=== PATIENT | female | born 1965 | race Caucasian/White ===

== ENCOUNTER → 2016-06-30 | Outpatient (CLI) | payer OTHER ==
[~2016-06-30] MED LIST: /DULO30CA OR; AMBI12.52 PO; BUTR5DIS2 TD; CALCCHW12 OR; CALCTAB22 OR; CALCTAB28 PO; CARA1TAB2 PO; CATA0.1T PO; CLON-412 PO; CLON0.5T PO; CLONI1TA PO; DULO30CA PO; EMLA CREAM TOP; FERR5MLUD PO; HYDR1TAB97 PO; HYOSPOW PO; KLON0.5T PO; LORA1TAB OR; LYRI75CA PO; MIRA255PW PO; MULTCAP PO; MULTIVIT OR; NASONEX; NEUR300C PO; NORC10TA2 PO; OMEP20TA7 OR; OMEP40CA2 PO; ONDA4TAB6 PO; OXYC10TA56 OR; OXYC1TAB23 PO; RANI15TA PO; SODIUM CHLORIDE; SUCR1SUS PO; SUCR1TA PO; TAMO20TA OR; TIZA2CAP3 PO; TIZA4CAP3 PO; TIZA4TAB3 PO; TPS CREAM TOP; TRAM50TA2 OR; VENL37.5 OR; VICO5TAB OR; VICO5TAB PO; VIIB10TA PO; VIT D 2000 OR; VITA10002 PO; VITA100037 PO; VOLT1GEL EX; VOLT1GEL TOP; VOLT1GEL24 TD; VYBRID PO; Vitamin D OR; WELL200T PO; WELL75TA PO; ZANA2CAP PO; [UNRECOGNIZED DRUG - OTHER] OR; [UNRECOGNIZED DRUG - OTHER] PO; oxycodone OR
[2016-06-30 12:24] LABS: BASO % 0.1 % (0.0-1.0); EOS % 0.5 % (0.0-3.0); LARGE UNSTAINED CELL # 0.1 K/mm3 (0.0-0.4); LARGE UNSTAINED CELL % 1.9 % (0.0-4.0); LYMPH # 1.6 K/mm3 (1.5-4.5); LYMPH % 23.4 % (24.0-44.0); MEAN CORPUSCULAR HEMOGLOBIN 27.8 pg (27.0-33.0); MEAN CORPUSCULAR HGB CONC 31.9 g/dl (32.0-36.5); MEAN CORPUSCULAR VOLUME 87.1 fl (80.0-96.0); MONO # 0.2 K/mm3 (0.0-0.8); MONO % 3.4 % (0.0-5.0); NEUTROPHILS # 4.7 K/mm3 (1.8-7.7); NEUTROPHILS % 70.7 % (36.0-66.0); PLATELET COUNT, AUTOMATED 442 k/mm3 (150-450); RED CELL DISTRIBUTION WIDTH 14.7 % (11.5-14.5); WHITE BLOOD COUNT 6.6 K/mm3 (4.0-10.0)
[2016-06-30 12:34] LABS: ALBUMIN 3.8 GM/DL (3.2-5.2); ALKALINE PHOSPHATASE 133 U/L (45-117); ALT/SGPT 26 U/L (12-78); ANION GAP 10 MEQ/L (8-16); AST/SGOT 19 U/L (15-37); BILIRUBIN,TOTAL 0.3 MG/DL (0.2-1.0); BLOOD UREA NITROGEN 14 MG/DL (7-18); CARBON DIOXIDE LEVEL 26 MEQ/L (21-32); CHLORIDE LEVEL 100 MEQ/L (98-107); CHOLESTEROL LEVEL 326 MG/DL (<200); CREATININE FOR GFR 0.91 MG/DL (0.55-1.02); GLOMERULAR FILTRATION RATE > 60.0 (>51); GLUCOSE, FASTING 121 MG/DL (70-105); POTASSIUM SERUM 4.4 MEQ/L (3.5-5.1); SODIUM LEVEL 136 MEQ/L (136-145); TOTAL PROTEIN 7.6 GM/DL (6.4-8.2); TRIGLYCERIDES LEVEL 214 MG/DL (<150)
[2016-07-01 14:31] LABS: Lyme Disease IgG/IgM Antibodie <0.91 ISR (0.00-0.90); Lyme Disease IgM Ab Quantitati <0.80 index (0.00-0.79)
== END ==
LOC: M WUC 10:16
PROVIDERS: ATTEND Nurse Practitioner Family
DX: D50.9 Iron deficiency anemia, unspecified (principal); W57.XXXA Bitten or stung by nonvenomous insect and other nonvenomous arthropods, initial encounter; Y92.9 Unspecified place or not applicable; Y93.9 Activity, unspecified; K28.9 Gastrojejunal ulcer, unspecified as acute or chronic, without hemorrhage or perforation; Z13.220 Encounter for screening for lipoid disorders; Y99.9 Unspecified external cause status

== ENCOUNTER → 2016-07-21 | Outpatient (CLI) | payer OTHER ==
[~2016-07-21] MED LIST changes: +HYDR-3713 PO; -HYDR1TAB97 PO
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
== END ==
LOC: M PAIN 10:00
PROVIDERS: ATTEND Nurse Practitioner Family
DX: Z09 Encounter for follow-up examination after completed treatment for conditions other than malignant neoplasm (principal); G89.29 Other chronic pain; M51.16 Intervertebral disc disorders with radiculopathy, lumbar region; G43.909 Migraine, unspecified, not intractable, without status migrainosus; K76.0 Fatty (change of) liver, not elsewhere classified; F32.9 Major depressive disorder, single episode, unspecified; F41.9 Anxiety disorder, unspecified; M85.80 Other specified disorders of bone density and structure, unspecified site; Z88.3 Allergy status to other anti-infective agents; Z91.030 Bee allergy status; L23.4 Allergic contact dermatitis due to dyes; Z79.891 Long term (current) use of opiate analgesic; Z79.899 Other long term (current) drug therapy; Z85.3 Personal history of malignant neoplasm of breast; Z86.19 Personal history of other infectious and parasitic diseases

== ENCOUNTER → 2016-08-07 | Outpatient (CLI) | payer OTHER ==
--- NOTE | 2016-08-07 12:02 | REP ---
Clinical: Pain with right-sided sciatica. Technique: AP, lateral, bilateral oblique, and coned-down views. Findings: Alignment and lordosis is maintained. The vertebral bodies including transverse process and spinous processes are intact and normal. There is no evidence for acute fracture / compression injury or subluxation. No evidence for spondylolysis or spondylolisthesis. Anterior spurring at the L3-4 and L4-5 levels suggest mild degenerative change. Impression: Minimal anterior spurring. Otherwise normal, age-appropriate examination. Signed by Souleymane Fu MD 08/07/2016 11:54 A
--- NOTE | 2016-08-07 13:08 | REP ---
Clinical: Sciatica. Technique: AP angled and lateral views of the sacrum and coccyx. Findings: Bilateral sacroiliac joints along with sacrum/coccyx and visualized pelvis appears normal for age. Erosive type change along the right superior pubic ramus likely chronic. Impression: Normal, age-appropriate sacrum/coccyx series Signed by Souleymane Fu MD 08/07/2016 12:59 P
== END ==
LOC: M RAD 11:12
PROVIDERS: ATTEND Nurse Practitioner Family
DX: M54.41 Lumbago with sciatica, right side (principal)

== ENCOUNTER → 2016-08-12 | Outpatient (CLI) | payer OTHER ==
--- NOTE | 2016-08-12 08:38 | REP ---
CT Head without contrast HISTORY: Fall COMPARISON: None There is no intraparenchymal hemorrhage, acute infarct, mass or midline shift. The ventricular system is normal in appearance. There is no extra cerebral collection. There is no fracture. The visualized sinuses are clear. IMPRESSION: There is no intracranial lesion. Signed by Tad Rogers MD 08/12/2016 08:29 A
== END ==
LOC: M RAD 06:58
PROVIDERS: ATTEND Nurse Practitioner Family
DX: R51 Headache (principal)

== ENCOUNTER → 2016-09-16 | Outpatient (CLI) | payer OTHER ==
[~2016-09-16] MED LIST changes: +ISOVUE-M 300 61% 15ML VIAL (Q9967) As Ordered ONE; +LIDOCAINE 1% SDV INJ 30 ML VIAL As Ordered ONE; +MIDAZOLAM INJ 2 MG/2 ML VIAL (J2250) As Ordered ONE; +diazePAM 5 MG TAB As Ordered ONE; +fentaNYL 100 MCG/2 ML INJECTION (J3010) As Ordered ONE; +methylPREDNISolone SUSP 40 MG/ML (DEPO-medrol) VIAL (J1030) As Ordered ONE; +oxyCODONE 5MG TAB As Ordered ONE
--- NOTE | 2016-09-16 14:08 | REP ---
FLUOROSCOPIC GUIDANCE FOR LUMBAR EPIDURAL INJECTION: 09/16/2016 CLINICAL HISTORY: Low back pain. FINDINGS: Two images from C-arm fluoroscopy provided to Dr. Jeffries of the pain clinic for lumbar epidural steroid injection are reviewed. Initial image shows a needle to the right of midline at the L4-5 level with epidural contrast adjacent. Second image shows the needle removed. Fluoroscopy time: 13 seconds. Signed by Isaías Marquez MD 09/16/2016 05:10 P
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
== END | disposition home or self-care (01) ==
LOC: M PAIN 09:00
PROVIDERS: ATTEND Anesthesiology
DX: G89.29 Other chronic pain (principal); M51.16 Intervertebral disc disorders with radiculopathy, lumbar region; I10 Essential (primary) hypertension; E78.5 Hyperlipidemia, unspecified; E88.81 Metabolic syndrome and other insulin resistance; F41.9 Anxiety disorder, unspecified; F33.9 Major depressive disorder, recurrent, unspecified; M85.80 Other specified disorders of bone density and structure, unspecified site; K76.0 Fatty (change of) liver, not elsewhere classified; Z79.899 Other long term (current) drug therapy; Z88.1 Allergy status to other antibiotic agents; Z91.030 Bee allergy status; Z91.02 Food additives allergy status
CPT/HCPCS: 62323; 99152; J1030; J2250; J3010; Q9967

== ENCOUNTER → 2016-09-18 | Outpatient (CLI) | payer OTHER ==
[~2016-09-18] MED LIST changes: -ISOVUE-M 300 61% 15ML VIAL (Q9967) As Ordered ONE; -LIDOCAINE 1% SDV INJ 30 ML VIAL As Ordered ONE; -MIDAZOLAM INJ 2 MG/2 ML VIAL (J2250) As Ordered ONE; -diazePAM 5 MG TAB As Ordered ONE; -fentaNYL 100 MCG/2 ML INJECTION (J3010) As Ordered ONE; -methylPREDNISolone SUSP 40 MG/ML (DEPO-medrol) VIAL (J1030) As Ordered ONE; -oxyCODONE 5MG TAB As Ordered ONE
--- NOTE | 2016-09-18 13:10 | REPMRS ---
Patient History The patient states she had a clinical breast exam in January 2016. Patient is postmenopausal and has history of breast cancer at age 44. No known family history of cancer. Taking tamoxifen for 1 year. Digital Mammo Screening Bilat: September 18, 2016 - Exam #: [id number] Bilateral CC and MLO view(s) were taken. Technologist: Karina Moe, Technologist Prior study comparison: June 07, 2015, digital mammo diagnostic bilateral performed at [facility]. February 05, 2015, left breast digital mammo diagnostic unilateral performed at [facility]. May 23, 2014, bilateral digital mammo screening bilat performed at [facility]. May 22, 2013, digital mammo diagnostic bilateral performed at [facility]. FINDINGS: There are scattered fibroglandular densities. There has been no change in the appearance of the mammogram from the prior studies. There is a mild amount of residual fibroglandular tissue which is fairly symmetric. There is no interval development of dominant mass, architectural distortion, or clustered microcalcification suggestive of malignancy. Post surgical changes and scarring left breast are stable. Large coarse benign appearing calcifications are present. No significant changes when compared with prior studies. ASSESSMENT: BI-RADS/ACR category 2 mammogram. Benign finding(s). Recommendation Routine screening mammogram in 1 year (for women over age 40). This mammogram was interpreted with the aid of an FDA-approved computer-aided dectection system. A. Negative x-ray reports should not delay biopsy if a dominant or clinically suspicious mass is present. B. Four to eight percent of cancers are not identified by mammography. C. Adenosis and dense breast may obscure an underlying neoplasm. Electronically Signed By: Isaías Marquez MD 09/18/16 [id number]
== END ==
LOC: M RAD 12:41
PROVIDERS: ATTEND Internal Medicine Medical Oncology
DX: Z12.31 Encounter for screening mammogram for malignant neoplasm of breast (principal); Z85.3 Personal history of malignant neoplasm of breast

== ENCOUNTER → 2016-09-24 | Outpatient (CLI) | payer OTHER ==
[2016-09-24 12:49] LABS: ALBUMIN 3.6 GM/DL (3.2-5.2); ALBUMIN/GLOBULIN RATIO 1.06 (1.00-1.93); ALKALINE PHOSPHATASE 142 U/L (45-117); ALT/SGPT 26 U/L (12-78); ANION GAP 8 MEQ/L (8-16); AST/SGOT 21 U/L (15-37); BILIRUBIN,TOTAL 0.2 MG/DL (0.2-1.0); BLOOD UREA NITROGEN 16 MG/DL (7-18); CARBON DIOXIDE LEVEL 26 MEQ/L (21-32); CHLORIDE LEVEL 106 MEQ/L (98-107); CHOLESTEROL LEVEL 248 MG/DL (<200); CREATININE FOR GFR 0.76 MG/DL (0.55-1.02); GLOMERULAR FILTRATION RATE > 60.0 (>51); GLUCOSE, FASTING 110 MG/DL (70-105); POTASSIUM SERUM 4.4 MEQ/L (3.5-5.1); SODIUM LEVEL 140 MEQ/L (136-145); TRIGLYCERIDES LEVEL 193 MG/DL (<150)
== END ==
LOC: M WUC 09:26
PROVIDERS: ATTEND Nurse Practitioner Family
DX: E78.5 Hyperlipidemia, unspecified (principal)

== ENCOUNTER → 2016-09-29 | Outpatient (CLI) | payer OTHER ==
--- NOTE | 2016-09-29 16:30 | REP ---
MRI study brain without and with IV gadolinium: History: New onset headache. Radiculopathy. History of breast carcinoma. Left arm ache and facial numbness on the left side. Technique: Technique: Axial and sagittal imaging planes are utilized for T1 and T2-weighted scans. Sequences include spin-echo, fast spin echo, FLAIR, and diffusion weighted sequences. Post gadolinium enhanced T1-weighted axial sagittal and coronal images are included. Gadolinium enhancement dose is 13 mL of intravenous ProHance. Comparison MRI study is from 12/03/2011. MRI findings: No bony calvarial defect is seen. Craniocervical junction and upper cervical cord are normal in appearance. Diffusion weighted scan show no evidence to suggest acute ischemia. There is no evidence of intracranial hemorrhage. Lateral third and fourth ventricles are normal in size and position. No abnormal white matter lesion is seen. Postcontrast images show no abnormal gadolinium enhancement. No vascular abnormality is seen. Impression: There is no evidence of intracranial lesion. Signed by Matt Shelton MD 09/29/2016 04:48 P
--- NOTE | 2016-09-29 16:32 | REP ---
MRI cervical spine without and with IV gadolinium: History: History of breast carcinoma, new onset cervical pain, left arm radiculopathy. Comparison MRI study is from December 03, 2011. Technique: Sagittal and axial T1 and T2-weighted scans are acquired in the usual fashion with and without fat saturation. Sequences include spin echo, turbo spin-echo, and STIR imaging sequences. MRI findings: There is straightening and reversal of the normal cervical lordosis. Cervical vertebral body heights are preserved. Alignment is otherwise normal. There is decreased disc space height and signal intensity at the C4-5 and C5-6 disc spaces consistent with degenerative disc disease. Other disc spaces are maintained. Craniocervical junction is normal. Cervical cord is normal in coarse, caliber and signal intensity on T1 and T2-weighted scans. No significant abnormality is seen at C2-3 or C3-4. At C4-5, axial and sagittal images demonstrate mild bilateral uncovertebral spurring producing mild neural foraminal narrowing, left greater than right. There is mild diffuse disc bulging. No cord compression is seen. At C5-6, there is mild to moderate diffuse disc bulging effacing the ventral subarachnoid space but not compressing the cord. There is bilateral uncovertebral spurring and neural foraminal narrowing, again left somewhat greater than right. At C6-C7, no significant abnormality is seen. The C7-T1 level is unremarkable as well. Impression: Degenerative spondylosis changes at C4-5 and C5-6 with uncovertebral spurring bilaterally at these levels. This is more pronounced on the left at both of these levels. No abnormal gadolinium enhancement is seen. The findings are essentially unchanged from the December 03, 2011 prior exam. Signed by Matt Shelton MD 09/29/2016 04:48 P
== END ==
LOC: M RAD 12:58
PROVIDERS: ATTEND Internal Medicine Medical Oncology
DX: C50.512 Malignant neoplasm of lower-outer quadrant of left female breast (principal); R51 Headache

== ENCOUNTER → 2016-09-30 | Outpatient (CLI) | payer OTHER ==
--- NOTE | 2016-10-01 11:19 | RADONC ---
RADIATION ONCOLOGY FOLLOWUP NOTE: DATE: 09/30/2016 CHART NO: 10 - 027 DIAGNOSIS: Left breast cancer. STAGE: Stage II B, T2N1M0 ECOG PERFORMANCE STATUS: 0 Ms. Bullock is a very pleasant 51-year-old white female with the diagnosis of a stage II B, T2N1M0 lobular carcinoma of the left breast who is presenting to us today for routine followup visit 7 years post completion of external beam radiation therapy. The patient presents today reporting that she has had a 5-month history of headaches. She also has some numbness that runs from her neck down her left arm. This is also been going on for 5 months. She has no new complaints, however. REVIEW OF SYSTEMS: The patient's review of systems is positive for headaches and some neck to left upper arm numbness. She denies nausea, vomiting, fevers, chills, night sweats, diplopia, headaches, anxiety or depression, anorexia, weight loss, visual disturbances, chest pain, urinary or bowel difficulties, bone pain, or neurological problems. PHYSICAL EXAMINATION: The patient is a well-developed, well-nourished female in no acute distress. HEENT exam is normocephalic, atraumatic. Extraocular movements are intact. There is no palpable cervical, supraclavicular, infraclavicular, axillary, or inguinal lymphadenopathy present. Lungs are clear to auscultation and percussion. Heart has a regular rate and rhythm. Abdomen is benign with no hepatosplenomegaly, masses, or tenderness. Breast examination reveals no masses or discharge bilaterally. Skeletal examination reveals no tenderness to pressure or percussion of the bony skeleton. Extremities reveal no clubbing, cyanosis, or edema. Neurologic exam is grossly intact, as is the remainder of the physical examination. ASSESSMENT: The patient is clinically PAULA at this time and will be seen by us again in 1 year for further followup. She will also continue to be followed by her other physicians as well. An MRI of the brain as well as of the C-spine was done yesterday. The MRI of the brain showed no evidence of metastatic disease or other lesions. The MRI of the c-spine showed degenerative changes with spurring bilaterally, more pronounced on the left at the levels of C4-5 and C5-6. The patient also continue be followed by her other physicians in the meantime. cc: *Dr. Valdovinos *Dr. Falcon *Alessandra Johnson MD
== END ==
LOC: M ONCR 11:32
PROVIDERS: ATTEND Radiology Radiation Oncology
DX: C50.312 Malignant neoplasm of lower-inner quadrant of left female breast (principal)

== ENCOUNTER 2016-11-13 07:19 | Outpatient (RCR) | payer OTHER | END 2016-11-18 | LOC: M PT 07:19 | PROVIDERS: ATTEND Internal Medicine Medical Oncology | DX: Z51.89 Encounter for other specified aftercare (principal); Z85.3 Personal history of malignant neoplasm of breast ==

== ENCOUNTER → 2016-11-13 | Outpatient (CLI) | payer OTHER ==
--- NOTE | 2016-12-05 00:34 | ECWPNPC ---
PATIENT NAME: ELIZABETH ARCHIBALD : 1965 GENDER: FEMALE VISIT DATE: 11/13/2016 DISCHARGE DATE: 11/13/16 1008 VISIT LOCKED DATE TIME: PHYSICIAN: OMID BALTAZAR RESOURCE: OMID BALTAZAR REASON FOR APPOINTMENT 1. CHRONIC PAIN HISTORY OF PRESENT ILLNESS HISTORY OF PRESENT ILLNESS: PAIN THE PATIENT DESCRIBES THE PAIN... FALL RISK SCREENING: SCREENING :NO FALLS IN THE PAST YEAR TODAY'S VISIT: NOTES: IS S/P LESB 09/16/16 WITH RELIEF OF PAIN IN BACK AND IN THE LEGS FOR 2 WEEKS AND SLOW RETURN OF BACK AND LEG PAIN. WAS EXPERIENCING INCREASED HEADACHES - [facility] AND MRI OF BRAIN WAS DONE. THIS WAS CLEAR. ALSO BEGAN EXPERIENCING LYMPHEDEMA IN LEFT HAND/AR/SHOULDER AND NECK TO FACE OVER LAST 3-4 MONTHS. LEFT ARM FEELS HEAVY. MRI OF CERVICAL SPINE ALSO DONE.. CURRENT MEDICATIONS TAKING CLONAZEPAM 0.5 MG TABLET 1 TABLET ORALLY QHS TAKING CARAFATE 1 GM TABLET 1 TABLET ORALLY FOUR TIMES DAILY TAKING MULTIVITAMINS OTC TABLET 1 TABLET ORALLY DAILY TAKING CYMBALTA 60 MG CAPSULE DELAYED RELEASE PARTICLES 1 CAPSULE ORALLY DAILY TAKING CALCIUM 600 + D 600-400 MG-UNIT TABLET 2 TABLETS ORALLY ONCE A DAY TAKING OMEPRAZOLE 40 MG CAPSULE DELAYED RELEASE 1 CAPSULE ORALLY TWICE A DAY TAKING NORCO 10-325 MG TABLET 1 TABLET ORALLY EVERY 4 HRS PRN PAIN MDD=6 TAKING CLONIDINE HCL 0.1 MG TABLET 1 TABLET ORALLY TID MDD=3 TAKING VITAMIN D (ERGOCALCIFEROL) 44844 UNIT CAPSULE 1 CAPSULE ORALLY WEEKLY TAKING IRON 325 (65 FE) MG TABLET 1 TABLET ORALLY TID MEDICATION LIST REVIEWED AND RECONCILED WITH THE PATIENT PAST MEDICAL HISTORY PMS MIGRAINES HTN (-CONTROLLED WITH WEIGHT LOSS) HYPERLIPIDEMIA (-CONTROLLED WITH WEIGHT LOSS) METABOLIC SYNDROME (-CONTROLLED WITH WEIGHT LOSS) DEPRESSION/ ANXIETY DR. ALBERT ENDOMETRIOSIS DR. SCHAFFER FATTY LIVER BREAST CA STAGE 1 05/29 PELVIC FRACTURE FROM - 1982 OSTEOPENIA - DEXA 08/30, FRAX RISK: 4% MAJOR, 0.4% HIP LEFT BREAST LUMP ALLERGIES BACTRIM: HIVES: ALLERGY RED DYE: HIVES: ALLERGY BEE STINGS: ANAPHYLAXIS: ALLERGY REVIEW OF SYSTEMS CONSTITUTIONAL: ANY CHANGE IN YOUR MEDICAL CONDITION? NO . CHILLS NO . FEVER NO . INFECTION: DO YOU HAVE NEW INFECTIONS? NO . DO YOU HAVE HISTORY OF MRSA? NO . MUSCULOSKELETAL: ANY NEW PATTERNS OF PAIN OR NUMBNESS? YES, PAIN AND NUMBNESS NECK AND LEFT NUMB--DIAGNOSED WITH LYMPHEDEMA BY ONGOLOGIST--GOING TO PT. HEADACHES ARE MORE FREQUENT . GASTROENTEROLOGY: ANY NEW CHANGE IN BOWEL CONTROL? NO . GENITOURINARY: ANY NEW CHANGE IN BLADDER CONTROL? NO . IS THERE A CHANCE YOU COULD BE ? NO . HEMATOLOGY/LYMPH: DO YOU TAKE ANY BLOOD THINNERS? (FOR EXAMPLE- COUMADIN, PLAVIX, AGGRENOX, PLATEL, PRADAXA, OR XARELTO) NO . WHEN WAS YOUR LAST DOSE? DATE: TIME: . NEUROLOGY: HAVE YOU FALLEN IN THE PAST 6 MONTHS? YES, LAST 2 WEEKS AGO. BRUISED LEFT KNEE AND CALF. . ANY NEW EXTREMITY NUMBNESS OR WEAKNESS? NO . CARDIOLOGY: DO YOU HAVE A PACEMAKER OR DEFIBRILLATOR? NO . RESPIRATORY: HAVE YOU BEEN SICK IN THE PAST WEEK? NO . FEVER NO . FLU LIKE SYMPTOMS? NO . COUGH NO . INTEGUMENTARY: DO YOU HAVE ANY RASHES OR OPEN SORES? NO . ALLERGIC/IMMUNO: ARE YOU ALLERGIC TO SHELLFISH OR IV DYE? NO . ANY NEW ALLERGIES? NO . PSYCHIATRIC: DO YOU HAVE THOUGHTS OF HURTING YOURSELF OR SOMEONE ELSE? NO . ARE YOU ABUSED, NEGLECTED, OR IN AN UNSAFE ENVIRONMENT? NO . ENDOCRINOLOGY: ARE YOU DIABETIC? NO . OTHER: DO YOU NEED ANY PRESCRIPTIONS? NO . IF YES, PLEASE LIST: ____ . ANY NEW PROBLEMS WITH YOUR MEDICATIONS? NO . WHEN DID YOU LAST EAT? ____ . WHEN DID YOU LAST DRINK? ____ . WHAT DID YOU LAST DRINK? ____ . NAME OF PERSON DRIVING YOU HOME? ____ . DO YOU HAVE ANY OTHER QUESTIONS OR CONCERNS MRI OF BRAIN AND C-SPINE DONE HERE FOR ONCOLOGY--BOTH NEG FOR LESIONS . REVIEWED BY: PROVIDER: OMID RODRIGUEZ . VITAL SIGNS WT 164 LBS, HT 61 IN, BMI 30.98 INDEX, BP 144/69 MM HG, HR 78 /MIN, RR 16 /MIN, TEMP 98.2 F, OXYGEN SAT % 98%, NA INITIALS AW 0903, REVIEWED BY: AD. EXAMINATION GENERAL EXAMINATION: LUNGS:LUNG SOUNDS ARE CLEAR. HEART:HEART RATE REGULAR, RAPID. MUSCULOSKELETAL:EXQUISITE TENDERNESS OVER BILATERAL TROCANTERS, RIGHT GREATER THAN LEFT. POINT TENDERNESS OVER LUMBER SPINOUS PROCESSES AND RIGHT GREATER THAN LEFT PARAVERTEBRAL. SLOW TO RISE TO STANDIING POSITION. GAIT ANTALGIC.TRIGGER POINTS:, ELICITED WITH PALPATION OVER LUMBAR PARAVERTEBRAL MUSCLES AND INTO THE SACRUM. RESTRICTION OF ROM IN THIS AREA. ASSESSMENTS INTERVERTEBRAL DISC DISORDERS WITH RADICULOPATHY, LUMBAR REGION - M51.16 (PRIMARY) OTHER CERVICAL DISC DISPLACEMENT AT C5-C6 LEVEL - M50.222 CERVICAL RADICULOPATHY - M54.12 CHRONIC PRESCRIPTION OPIATE USE - Z79.899 TREATMENT INTERVERTEBRAL DISC DISORDERS WITH RADICULOPATHY, LUMBAR REGION NOTES: REQUEST AUTH FOR INTRALAMILAR LUMBAR EPIDURAL. OTHER CERVICAL DISC DISPLACEMENT AT C5-C6 LEVEL NOTES: . CONTINUE CURRENT MEDS. CONTINUE PHYSICAL THERAPY FOR LUE LYMPHEDEMA AND NECK AND ARM PAIN. WE WILL DISCUSS INJECTION TREATMENT WITH LYMPHEDEMA SPECIALIST KIERRA ([phone]. CLINICAL NOTES: ISTOP REGISTRY REVIEWED AND DEMNOSTRATES COMPLLIANCE. BRINGS IN MEDICATIONS WHICH IS APPROPRIATE FOR WHAT WAS DISPENSED. RECENT URINE TOXICOLOGY REVIEWED. NO UNAUTHORIZED MEDICATIONS. NO ILLICIT SUBSTANCES AND PRESCRIBED MEDICATIONS WERE PRESENT. PREVENTIVE MEDICINE PAIN CLINIC TEACHING: PROCEDURE TEACHING PT DECLINED PRINTED INFORMATION ON EPIDURALS STATING SHE HAS HAD THEM IN THE PAST AND IS FAMILILAR WITH THEM. PRE-PROCEDURAL INSTRUCTIONS GIVEN TO AND REVIEWED WITH PT. AND SHE VERBALIZED UNDERSTANDING.AD. PROCEDURE CODES FA211 ESTABILISHED PATIENT [facility] FACILITY CHARGE DISPOSITION & COMMUNICATION FOLLOW UP AFTER INJECTION (REASON: REQUEST AUTH FOR LUMBAR EPIDURAL) ELECTRONICALLY SIGNED BY REINIER PATEL ON 12/04/2016 AT 08:23 PM EDT DISCLAIMER : THIS IS A VISIT SUMMARY EXTRACTED FROM THE [employer] CHART. IT IS NOT A COPY OF THE [employer] PROGRESS NOTE. LUCÍA
== END | disposition home or self-care (01) ==
LOC: M PAIN 09:00
PROVIDERS: ATTEND Nurse Practitioner Family
DX: G89.29 Other chronic pain (principal); M51.16 Intervertebral disc disorders with radiculopathy, lumbar region; M50.222 Other cervical disc displacement at C5-C6 level; G43.909 Migraine, unspecified, not intractable, without status migrainosus; I10 Essential (primary) hypertension; E78.5 Hyperlipidemia, unspecified; F41.9 Anxiety disorder, unspecified; F33.9 Major depressive disorder, recurrent, unspecified; N80.9 Endometriosis, unspecified; M85.9 Disorder of bone density and structure, unspecified; Z85.3 Personal history of malignant neoplasm of breast; K76.0 Fatty (change of) liver, not elsewhere classified; Z79.899 Other long term (current) drug therapy; Z88.1 Allergy status to other antibiotic agents; Z91.030 Bee allergy status; Z91.018 Allergy to other foods

== ENCOUNTER → 2016-12-09 | Outpatient (CLI) | payer OTHER ==
[~2016-12-09] MED LIST changes: +BENA25TA10 PO; +DULO1CAP3 PO; +FOLI1TAB4 PO; +HYDR-3719 PO; +HYDRO50TAB PO; +ISOVUE-M 300 61% 15ML VIAL (Q9967) As Ordered ONE; +LIDOCAINE 1% SDV INJ 30 ML VIAL As Ordered ONE; -NORC10TA2 PO; +NORC10TA21 PO; +SUCR1TAB56 PO; +TRAZO50TA PO; +TYLE325T5 PO; +VICO10TA11 PO; -VITA100037 PO; +VITA100067 PO; +VITA1CAP40 PO; +VITMTA PO; +VOLT1GEL15 TD; -VOLT1GEL24 TD; +diazePAM 5 MG TAB As Ordered ONE; +methylPREDNISolone SUSP 40 MG/ML (DEPO-medrol) VIAL (J1030) As Ordered ONE; +oxyCODONE 5MG TAB As Ordered ONE
--- NOTE | 2016-12-09 16:49 | REP ---
FLUOROSCOPIC GUIDED SPINAL INJECTION: The films were reviewed with Dr. Munguia. The patient has a history of low back pain. The portable C-ARM was provided in the OR by Dr. Jeffries for fluoroscopic guidance. 1 intraoperative fluoroscopic spot film was obtained for needle placement verification for lumbar epidural injection. The film is on the PACS system and is available for review. 14 seconds of fluoroscopic time was utilized for this procedure. Reviewed by DARREN Britt 12/09/2016 04:51 PEdited and Signed by Bucky Munguia MD 12/10/2016 05:18 P
--- NOTE | 2016-12-22 23:34 | ECWPNPC ---
PATIENT NAME: ELIZABETH ARCHIBALD : 1965 GENDER: FEMALE VISIT DATE: 12/09/2016 DISCHARGE DATE: 12/09/16 1055 VISIT LOCKED DATE TIME: PHYSICIAN: BARBARA DAVIS RESOURCE: BARBARA DAVIS REASON FOR APPOINTMENT 1. LE HISTORY OF PRESENT ILLNESS HISTORY OF PRESENT ILLNESS: PAIN THE PATIENT DESCRIBES THE PAIN... FALL RISK SCREENING: SCREENING :NO FALLS IN THE PAST YEAR CURRENT MEDICATIONS TAKING CLONAZEPAM 0.5 MG TABLET 1 TABLET ORALLY QHS, NOTES: 199912/08/16 TAKING CARAFATE 1 GM TABLET 1 TABLET ORALLY FOUR TIMES DAILY, NOTES: 1999 TAKING MULTIVITAMINS OTC TABLET 1 TABLET ORALLY DAILY, NOTES: 699 YESTERDAY TAKING CYMBALTA 60 MG CAPSULE DELAYED RELEASE PARTICLES 1 CAPSULE ORALLY DAILY, NOTES: 69912/08/16 TAKING CALCIUM 600 + D 600-400 MG-UNIT TABLET 2 TABLETS ORALLY ONCE A DAY, NOTES: 12/08/16 TAKING OMEPRAZOLE 40 MG CAPSULE DELAYED RELEASE 1 CAPSULE ORALLY TWICE A DAY, NOTES: 199912/08/16 TAKING CLONIDINE HCL 0.1 MG TABLET 1 TABLET ORALLY TID MDD=3, NOTES: 199912/08/16 TAKING VITAMIN D (ERGOCALCIFEROL) 29366 UNIT CAPSULE 1 CAPSULE ORALLY WEEKLY, NOTES: WEDNESDAY TAKING IRON 325 (65 FE) MG TABLET 1 TABLET ORALLY TID, NOTES: 69912/08/16 TAKING NORCO 10-325 MG TABLET 1 TABLET ORALLY EVERY 4 HRS PRN PAIN MDD=6, NOTES: 0200 MEDICATION LIST REVIEWED AND RECONCILED WITH THE PATIENT PAST MEDICAL HISTORY PMS MIGRAINES HTN (-CONTROLLED WITH WEIGHT LOSS) HYPERLIPIDEMIA (-CONTROLLED WITH WEIGHT LOSS) METABOLIC SYNDROME (-CONTROLLED WITH WEIGHT LOSS) DEPRESSION/ ANXIETY DR. ALBERT ENDOMETRIOSIS DR. SCHAFFER FATTY LIVER BREAST CA STAGE 1 05/29 PELVIC FRACTURE FROM - 1982 OSTEOPENIA - DEXA 08/30, FRAX RISK: 4% MAJOR, 0.4% HIP LEFT BREAST LUMP ALLERGIES BACTRIM: HIVES: ALLERGY RED DYE: HIVES: ALLERGY BEE STINGS: ANAPHYLAXIS: ALLERGY REVIEW OF SYSTEMS REVIEWED BY: PROVIDER: . CONSTITUTIONAL: ANY CHANGE IN YOUR MEDICAL CONDITION? NO . CHILLS NO . FEVER NO . INFECTION: DO YOU HAVE NEW INFECTIONS? NO . DO YOU HAVE HISTORY OF MRSA? NO . MUSCULOSKELETAL: ANY NEW PATTERNS OF PAIN OR NUMBNESS? YES, HEADACHES . GASTROENTEROLOGY: ANY NEW CHANGE IN BOWEL CONTROL? NO . GENITOURINARY: ANY NEW CHANGE IN BLADDER CONTROL? NO . IS THERE A CHANCE YOU COULD BE ? NO . HEMATOLOGY/LYMPH: DO YOU TAKE ANY BLOOD THINNERS? (FOR EXAMPLE- COUMADIN, PLAVIX, AGGRENOX, PLATEL, PRADAXA, OR XARELTO) NO . WHEN WAS YOUR LAST DOSE? DATE: TIME: . NEUROLOGY: HAVE YOU FALLEN IN THE PAST 6 MONTHS? NO . ANY NEW EXTREMITY NUMBNESS OR WEAKNESS? NO . CARDIOLOGY: DO YOU HAVE A PACEMAKER OR DEFIBRILLATOR? NO . RESPIRATORY: HAVE YOU BEEN SICK IN THE PAST WEEK? NO . FEVER NO . FLU LIKE SYMPTOMS? NO . COUGH NO . INTEGUMENTARY: DO YOU HAVE ANY RASHES OR OPEN SORES? NO . ALLERGIC/IMMUNO: ARE YOU ALLERGIC TO SHELLFISH OR IV DYE? NO . ANY NEW ALLERGIES? NO . PSYCHIATRIC: DO YOU HAVE THOUGHTS OF HURTING YOURSELF OR SOMEONE ELSE? NO . ARE YOU ABUSED, NEGLECTED, OR IN AN UNSAFE ENVIRONMENT? NO . ENDOCRINOLOGY: ARE YOU DIABETIC? NO . OTHER: DO YOU NEED ANY PRESCRIPTIONS? NO . IF YES, PLEASE LIST: ____ . ANY NEW PROBLEMS WITH YOUR MEDICATIONS? NO . WHEN DID YOU LAST EAT? 8PM . WHEN DID YOU LAST DRINK? 3AM . WHAT DID YOU LAST DRINK? WATER . NAME OF PERSON DRIVING YOU HOME? TANIA . DO YOU HAVE ANY OTHER QUESTIONS OR CONCERNS NO . VITAL SIGNS WT 158 LBS, HT 61 IN, BMI 29.85 INDEX, BP 139/65 MM HG, HR 93 /MIN, RR 16 /MIN, TEMP 98.5 F, OXYGEN SAT % 100%, NA INITIALS SC 09:07, REVIEWED BY: NL. ASSESSMENTS INTERVERTEBRAL DISC DISORDERS WITH RADICULOPATHY, LUMBOSACRAL REGION - M51.17 (PRIMARY) PROCEDURES PRE PROCEDURE DIAGNOSIS LUMBOSACRAL DISC DISORDER WITH RADICULOPATHY, LUMBOSACRAL RADICULOPATHY POST PROCEDURE DIAGNOSIS LUMBOSACRAL RADICULOPATHY, LUMBOSACRAL DISC DISORDER WITH RADICULOPATHY PROCEDURE L4-L5 LUMBAR EPIDURAL STEROID INJECTION UNDER FLUOROSCOPIC GUIDANCE SURGEON DR. BARBARA DAVIS PERCUSSION INSTRUMENT TUNER NONE ANESTHESIA LOCAL PRE PROCEDURE NOTE THE PATIENT HAS A HISTORY OF CHRONIC LOW BACK PAIN. I EVALUATE THE PATIENT AND REVIEWED THE CHART. I WENT OVER THE RISKS, ALTERNATIVES, AND BENEFITS ASSOCIATED WITH THIS PROCEDURE. THE PATIENT WOULD LIKE TO PROCEED AND GIVE CONSENT TO PERFORMED THE PROCEDURE. THE PATIENT DENIES UNEXPLAINABLE WEIGHT LOSS, FEVER, CHILLS, OR NEW CHANGES IN URINARY OR BOWEL CONTROL. DESCRIPTION OF PROCEDURE THE PATIENT WAS BROUGHT TO THE PROCEDURE ROOM AND PLACED IN THE PRONE POSITION. THE LUMBOSACRAL AREA WAS CLEANED WITH BETADINE SOLUTION AND DRAPED ASEPTICALLY. THE PROCEDURE WAS DONE UNDER STERILE CONDITIONS. I CHECKED LATERALITY AND THE LEVEL WHERE THE PROCEDURE WAS GOING TO BE PERFORMED WITH THE PATIENT AND THE SUPPORTING STAFF AT THE MOMENT OF THE TIME OUT IN THE PROCEDURE ROOM. UNDER FLUOROSCOPIC GUIDANCE, THE TARGET POINT WAS SELECTED AT THE INTERLAMINAR LEVEL OF L4-L5. LIDOCAINE WAS USED TO NUMB THE SKIN AND THE SUBCUTANEOUS TISSUE BELOW IT. EPIDURAL TUOHY NEEDLE, 17-GAUGE, WAS ADVANCED UNDER FLUOROSCOPIC GUIDANCE AND FOLLOWING PATIENT FEEDBACK UNTIL THE EPIDURAL SPACE WAS REACHED, 7 CM DEEP INTO THE SKIN BY THE LOSS OF RESISTANCE TECHNIQUE. ISOVUE M DYE 30%, 0.25 ML, WAS INJECTED SHOWING ADEQUATE SPREAD OF THE DYE. THEN, A SOLUTION OF 3 ML OF NORMAL SALINE WITH DEPO-MEDROL 60 MG WAS INJECTED SLOWLY FOLLOWING PATIENT FEEDBACK. THERE WAS NO EVIDENCE OF BLOOD, PARESTHESIA OR CEREBROSPINAL FLUID DURING THE PROCEDURE. THE PATIENT WAS SENT TO THE RECOVERY ROOM. THE PATIENT WAS MOVING THE EXTREMITIES AND DOING WELL. THERE WAS NO COMPLICATION DURING THE PROCEDURE. FLUOROSCOPY TIME WAS 14 SECONDS. POST PROCEDURE NOTE THE PATIENT WILL BE SEEN IN A FOLLOW UP IN THE NEXT FEW WEEKS. INSTRUCTIONS WERE GIVEN, QUESTIONS WERE ANSWERED, AND THE PATIENT EXPRESSED UNDERSTANDING AND AGREES WITH THE PLAN. I, JORGE LY, DOCUMENTED THE ABOVE INFORMATION ACTING A SCRIBE FOR DR. DAVIS. I HAVE REVIEWED THE ABOVE DOCUMENT, WRITTEN BY JORGE LY SCRIBLaurie AND I VERIFY THAT IT IS ACCURATE DIAGNOSTIC IMAGING [facility] FLUORO GUIDE SPINE INJECTION (PAIN)[id number] PROCEDURE CODES 17552 LUMBAR/SACRAL W/ IMAGING 6045F RADXPS IN END [id number] PXD DISPOSITION & COMMUNICATION FOLLOW UP 3 WEEKS ELECTRONICALLY SIGNED BY BARBARA DAVIS MD ON 12/22/2016 AT 09:57 PM EDT DISCLAIMER : THIS IS A VISIT SUMMARY EXTRACTED FROM THE [employer] CHART. IT IS NOT A COPY OF THE [facility] PROGRESS [facility]. MTDD
== END | disposition home or self-care (01) ==
LOC: M PAIN 09:00
PROVIDERS: ATTEND Anesthesiology
DX: G89.29 Other chronic pain (principal); M51.17 Intervertebral disc disorders with radiculopathy, lumbosacral region; G43.909 Migraine, unspecified, not intractable, without status migrainosus; I10 Essential (primary) hypertension; E78.5 Hyperlipidemia, unspecified; F33.9 Major depressive disorder, recurrent, unspecified; F41.9 Anxiety disorder, unspecified; N80.9 Endometriosis, unspecified; K76.0 Fatty (change of) liver, not elsewhere classified; Z85.3 Personal history of malignant neoplasm of breast; M85.9 Disorder of bone density and structure, unspecified; Z79.899 Other long term (current) drug therapy; Z88.1 Allergy status to other antibiotic agents; Z91.018 Allergy to other foods; Z91.030 Bee allergy status
CPT/HCPCS: 62323; J1030; Q9967

== ENCOUNTER 2016-12-17 12:00 | Outpatient (RCR) | payer OTHER ==
[~2016-12-17 12:00] MED LIST changes: -BENA25TA10 PO; -DULO1CAP3 PO; -FOLI1TAB4 PO; -HYDR-3719 PO; -HYDRO50TAB PO; -ISOVUE-M 300 61% 15ML VIAL (Q9967) As Ordered ONE; -LIDOCAINE 1% SDV INJ 30 ML VIAL As Ordered ONE; -SUCR1TAB56 PO; -TRAZO50TA PO; -TYLE325T5 PO; -VICO10TA11 PO; -VITA1CAP40 PO; -VITMTA PO; -diazePAM 5 MG TAB As Ordered ONE; -methylPREDNISolone SUSP 40 MG/ML (DEPO-medrol) VIAL (J1030) As Ordered ONE; -oxyCODONE 5MG TAB As Ordered ONE
== END 2016-12-18 | disposition home or self-care (01) ==
LOC: M PT 12:00
PROVIDERS: ATTEND Internal Medicine Medical Oncology
DX: Z51.89 Encounter for other specified aftercare (principal); Z48.3 Aftercare following surgery for neoplasm; I89.0 Lymphedema, not elsewhere classified

== ENCOUNTER → 2016-12-30 | Outpatient (CLI) | payer OTHER ==
[~2016-12-30] MED LIST changes: +BENA25TA10 PO; +DULO1CAP3 PO; +FOLI1TAB4 PO; +HYDR-3719 PO; +HYDRO50TAB PO; +SUCR1TAB56 PO; +TRAZO50TA PO; +TYLE325T5 PO; +VICO10TA11 PO; +VITA1CAP40 PO; +VITMTA PO
--- NOTE | 2017-01-23 01:14 | ECWPNPC ---
PATIENT NAME: ELIZABETH ARCHIBALD : 1965 GENDER: FEMALE VISIT DATE: 12/30/2016 DISCHARGE DATE: 12/30/16 1005 VISIT LOCKED DATE TIME: PHYSICIAN: OMID BALTAZAR RESOURCE: OMID BALTAZAR REASON FOR APPOINTMENT 1. POST CODY HISTORY OF PRESENT ILLNESS HISTORY OF PRESENT ILLNESS: PAIN THE PATIENT DESCRIBES THE PAIN... FALL RISK SCREENING: SCREENING :TWO OR MORE FALLS WITH INJURY IN THE PAST YEAR TODAY'S VISIT: NOTES: RATES PAIN TODAY 8/10. WORST AREA IS NECK AND HEAD AREA. MUSCLES ARE TIGHT AND BURNING. IS S/P INTRALAMINAL LUMBAR EPIDURAL INJECTION ON 12/09/16 WITH GREATER THAN 50% REDUCTION IN PAIN TO LOW BACK AND RIGHT HIP REGION.. VERY SUCCESSFUL INJECTION. DR Hoyt DID DISCUSS TRANSFORAMINAL EPDURAL INJECTION WITH HER BRIEFLY. CURRENT MEDICATIONS TAKING CLONAZEPAM 0.5 MG TABLET 1 TABLET ORALLY QHS, NOTES: 199912/08/16 TAKING CARAFATE 1 GM TABLET 1 TABLET ORALLY FOUR TIMES DAILY, NOTES: 1999 TAKING MULTIVITAMINS OTC TABLET 1 TABLET ORALLY DAILY, NOTES: 07 YESTERDAY TAKING CYMBALTA 60 MG CAPSULE DELAYED RELEASE PARTICLES 1 CAPSULE ORALLY DAILY, NOTES: 69912/08/16 TAKING CALCIUM 600 + D 600-400 MG-UNIT TABLET 2 TABLETS ORALLY ONCE A DAY, NOTES: 12/08/16 TAKING OMEPRAZOLE 40 MG CAPSULE DELAYED RELEASE 1 CAPSULE ORALLY TWICE A DAY, NOTES: 199912/08/16 TAKING CLONIDINE HCL 0.1 MG TABLET 1 TABLET ORALLY TID MDD=3, NOTES: 199912/08/16 TAKING VITAMIN D (ERGOCALCIFEROL) 65039 UNIT CAPSULE 1 CAPSULE ORALLY WEEKLY, NOTES: WEDNESDAY TAKING IRON 325 (65 FE) MG TABLET 1 TABLET ORALLY TID, NOTES: 69912/08/16 TAKING NORCO 10-325 MG TABLET 1 TABLET ORALLY EVERY 4 HRS PRN PAIN MDD=6 MEDICATION LIST REVIEWED AND RECONCILED WITH THE PATIENT PAST MEDICAL HISTORY PMS MIGRAINES HTN (-CONTROLLED WITH WEIGHT LOSS) HYPERLIPIDEMIA (-CONTROLLED WITH WEIGHT LOSS) METABOLIC SYNDROME (-CONTROLLED WITH WEIGHT LOSS) DEPRESSION/ ANXIETY DR. ALBERT ENDOMETRIOSIS DR. SCHAFFER FATTY LIVER BREAST CA STAGE 1 05/29 PELVIC FRACTURE FROM - 1982 OSTEOPENIA - DEXA 08/30, FRAX RISK: 4% MAJOR, 0.4% HIP LEFT BREAST LUMP ALLERGIES BACTRIM: HIVES: ALLERGY RED DYE: HIVES: ALLERGY BEE STINGS: ANAPHYLAXIS: ALLERGY REVIEW OF SYSTEMS REVIEWED BY: PROVIDER: OMID RODRIGUEZ . CONSTITUTIONAL: ANY CHANGE IN YOUR MEDICAL CONDITION? NO . CHILLS NO . FEVER NO . INFECTION: DO YOU HAVE NEW INFECTIONS? NO . DO YOU HAVE HISTORY OF MRSA? NO . MUSCULOSKELETAL: ANY NEW PATTERNS OF PAIN OR NUMBNESS? YES,MUSCLES ARE BURNING AND HEADACHE ALL THE TIME . GASTROENTEROLOGY: ANY NEW CHANGE IN BOWEL CONTROL? NO . GENITOURINARY: ANY NEW CHANGE IN BLADDER CONTROL? NO . IS THERE A CHANCE YOU COULD BE ? NO . HEMATOLOGY/LYMPH: DO YOU TAKE ANY BLOOD THINNERS? (FOR EXAMPLE- COUMADIN, PLAVIX, AGGRENOX, PLATEL, PRADAXA, OR XARELTO) NO . WHEN WAS YOUR LAST DOSE? DATE: TIME: . NEUROLOGY: HAVE YOU FALLEN IN THE PAST 6 MONTHS? NO . ANY NEW EXTREMITY NUMBNESS OR WEAKNESS? NO . CARDIOLOGY: DO YOU HAVE A PACEMAKER OR DEFIBRILLATOR? NO . RESPIRATORY: HAVE YOU BEEN SICK IN THE PAST WEEK? NO . FEVER NO . FLU LIKE SYMPTOMS? NO . COUGH NO . INTEGUMENTARY: DO YOU HAVE ANY RASHES OR OPEN SORES? NO . ALLERGIC/IMMUNO: ARE YOU ALLERGIC TO SHELLFISH OR IV DYE? NO . ANY NEW ALLERGIES? NO . PSYCHIATRIC: DO YOU HAVE THOUGHTS OF HURTING YOURSELF OR SOMEONE ELSE? NO . ARE YOU ABUSED, NEGLECTED, OR IN AN UNSAFE ENVIRONMENT? NO . ENDOCRINOLOGY: ARE YOU DIABETIC? NO . OTHER: DO YOU NEED ANY PRESCRIPTIONS? NO . IF YES, PLEASE LIST: ____ . ANY NEW PROBLEMS WITH YOUR MEDICATIONS? NO . WHEN DID YOU LAST EAT? ____ . WHEN DID YOU LAST DRINK? ____ . WHAT DID YOU LAST DRINK? ____ . NAME OF PERSON DRIVING YOU HOME? ____ . DO YOU HAVE ANY OTHER QUESTIONS OR CONCERNS NO . VITAL SIGNS WT 156 LBS, HT 61 IN, BMI 29.47 INDEX, BP 134/71 MM HG, HR 95 /MIN, RR 18 /MIN, TEMP 99.2 F, OXYGEN SAT % 98. EXAMINATION GENERAL EXAMINATION: PSYCHALERT , ORIENTED X 3 , APPROPRIATE MOOD AND AFFECT . LUNGS:LUNG SOUNDS ARE CLEAR. HEART:HEART RATE REGULAR, RAPID. MUSCULOSKELETAL: POINT TENDERNESS OVER LUMBER SPINOUS PROCESSES AND RIGHT GREATER THAN LEFT PARAVERTEBRAL. POINT TENDERNESS OVER C7 PROMINENCE AND OVER THE CERVICAL SPINOUS PROCESSES. SLOW TO RISE TO STANDIING POSITION. GAIT ANTALGIC.TRIGGER POINTS AND TIGHT FIBROUS BANDS OVER RIGHT > LEFT TRAPEZIUS MUSCLES , RESTRICTION OF ROM IN THIS AREA. ASSESSMENTS INTERVERTEBRAL DISC DISORDERS WITH RADICULOPATHY, LUMBAR REGION - M51.16 (PRIMARY) OTHER CERVICAL DISC DISPLACEMENT AT C5-C6 LEVEL - M50.222 CERVICAL RADICULOPATHY - M54.12 CHRONIC PRESCRIPTION OPIATE USE - Z79.899 TREATMENT INTERVERTEBRAL DISC DISORDERS WITH RADICULOPATHY, LUMBAR REGION START BACLOFEN TABLET, 10 MG, 1 TABLET WITH FOOD OR MILK, ORALLY, TAKE 1/2 TAB IN AM AND MIDDAY - WHOLE TABLET AT BEDTIME, 30 DAY(S), 60, REFILLS 2 CERVICAL EPIDURAL OMID FUNES 12/30/2016 9:24:45 AM > LEFT CERVICAL RADICULOPATHY NOTES: .UPDATE NARCOTIC AGREEMENTCONTINUE EXERCISES AND STRETCHESKEEP HYDRATED!!. CLINICAL NOTES: ISTOP REGISTRY REVIEWED AND DEMNOSTRATES COMPLLIANCE. BRINGS IN MEDICATIONS WHICH IS APPROPRIATE FOR WHAT WAS DISPENSED. RECENT URINE TOXICOLOGY REVIEWED. NO UNAUTHORIZED MEDICATIONS. NO ILLICIT SUBSTANCES AND PRESCRIBED MEDICATIONS WERE PRESENT. PREVENTIVE MEDICINE CERVICAL EPIDURAL STEROID INJECTION TEACHING REVIEWED. PROCEDURE CODES FA211 ESTABILISHED PATIENT [facility] FACILITY CHARGE DISPOSITION & COMMUNICATION FOLLOW UP REASON: CHECK AUTH FOR CERVICAL EPIDURAL ELECTRONICALLY SIGNED BY REINIER PATEL ON 01/22/2017 AT 04:48 PM EDT DISCLAIMER : THIS IS A VISIT SUMMARY EXTRACTED FROM THE [employer] CHART. IT IS NOT A COPY OF THE [employer] PROGRESS NOTE. LUCÍA
== END | disposition home or self-care (01) ==
LOC: M PAIN 08:40
PROVIDERS: ATTEND Nurse Practitioner Family
DX: G89.29 Other chronic pain (principal); M51.16 Intervertebral disc disorders with radiculopathy, lumbar region; M50.222 Other cervical disc displacement at C5-C6 level; I10 Essential (primary) hypertension; E78.5 Hyperlipidemia, unspecified; F33.9 Major depressive disorder, recurrent, unspecified; F41.9 Anxiety disorder, unspecified; N80.9 Endometriosis, unspecified; K76.0 Fatty (change of) liver, not elsewhere classified; Z85.3 Personal history of malignant neoplasm of breast; M85.9 Disorder of bone density and structure, unspecified; Z79.899 Other long term (current) drug therapy; Z88.1 Allergy status to other antibiotic agents; Z91.018 Allergy to other foods; Z91.030 Bee allergy status

== ENCOUNTER → 2017-01-28 | Outpatient (CLI) | payer OTHER ==
[~2017-01-28] MED LIST changes: +ISOVUE-M 300 61% 15ML VIAL (Q9967) As Ordered ONE; +LIDOCAINE 1% SDV INJ 30 ML VIAL As Ordered ONE; +diazePAM 5 MG TAB As Ordered ONE; +methylPREDNISolone SUSP 40 MG/ML (DEPO-medrol) VIAL (J1030) As Ordered ONE; +oxyCODONE 5MG TAB As Ordered ONE
--- NOTE | 2017-01-28 19:24 | REP ---
FLUOROSCOPIC GUIDED SPINAL INJECTION: The films were reviewed with Dr. Munguia. The patient has a history of neck pain. The portable C-Arm is provided in the OR for Dr. Jeffries for fluoroscopic guidance. One intraoperative fluoroscopic spot film was obtained using last image hold technology for needle placement verification for cervical epidural injection. The film is on the PACs system and is available for review. 12 seconds of fluoroscopy time was utilized for this procedure. Reviewed by DARREN Britt 01/29/2017 05:14 PEdited and Signed by Bucky Munguia MD 01/29/2017 05:20 P
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
== END | disposition home or self-care (01) ==
LOC: M PAIN 10:45
PROVIDERS: ATTEND Anesthesiology
DX: G89.29 Other chronic pain (principal); M50.13 Cervical disc disorder with radiculopathy, cervicothoracic region; M51.16 Intervertebral disc disorders with radiculopathy, lumbar region; I10 Essential (primary) hypertension; E78.5 Hyperlipidemia, unspecified; F33.9 Major depressive disorder, recurrent, unspecified; F41.9 Anxiety disorder, unspecified; N80.9 Endometriosis, unspecified; K76.0 Fatty (change of) liver, not elsewhere classified; Z85.3 Personal history of malignant neoplasm of breast; M85.9 Disorder of bone density and structure, unspecified; Z79.899 Other long term (current) drug therapy; Z88.1 Allergy status to other antibiotic agents; Z91.018 Allergy to other foods; Z91.030 Bee allergy status
CPT/HCPCS: 62321; J1030; Q9967

== ENCOUNTER 2017-02-17 18:29 | Inpatient (IN) | payer OTHER ==
[~2017-02-17] VITALS: Ht 157.5 cm; Wt 74.5 kg
[~2017-02-17 18:29] MED LIST changes: -BENA25TA10 PO; -DULO1CAP3 PO; -FOLI1TAB4 PO; -HYDR-3719 PO; -HYDRO50TAB PO; -ISOVUE-M 300 61% 15ML VIAL (Q9967) As Ordered ONE; -LIDOCAINE 1% SDV INJ 30 ML VIAL As Ordered ONE; -SUCR1TAB56 PO; -TRAZO50TA PO; -TYLE325T5 PO; -VICO10TA11 PO; -VITA1CAP40 PO; -VITMTA PO; -diazePAM 5 MG TAB As Ordered ONE; -methylPREDNISolone SUSP 40 MG/ML (DEPO-medrol) VIAL (J1030) As Ordered ONE; -oxyCODONE 5MG TAB As Ordered ONE
[2017-02-17] MEDS ORDERED: VICO10TA11 PO (18:39)
[2017-02-17 19:20] LABS: MEAN CORPUSCULAR HGB CONC 33.4 g/dl (32.0-36.5); MEAN CORPUSCULAR VOLUME 83.6 fl (80.0-96.0); RED CELL DISTRIBUTION WIDTH 16.1 % (11.5-14.5); WHITE BLOOD COUNT 7.1 K/mm3 (4.0-10.0)
[2017-02-17 19:49] LABS: METHADONE URINE NEGATIVE (NEGATIVE)
[2017-02-17 19:57] LABS: ALBUMIN 3.8 GM/DL (3.2-5.2); ALBUMIN/GLOBULIN RATIO 0.86 (1.00-1.93); ALKALINE PHOSPHATASE 184 U/L (45-117); ALT/SGPT 24 U/L (12-78); ANION GAP 18 MEQ/L (8-16); AST/SGOT 30 U/L (15-37); BILIRUBIN,DIRECT < 0.1 MG/DL (0.0-0.2); BILIRUBIN,TOTAL 0.2 MG/DL (0.2-1.0); BLOOD UREA NITROGEN 6 MG/DL (7-18); CALCIUM LEVEL 8.8 MG/DL (8.5-10.1); CARBON DIOXIDE LEVEL 19 MEQ/L (21-32); CHLORIDE LEVEL 103 MEQ/L (98-107); CREATININE FOR GFR 0.87 MG/DL (0.55-1.02); GLOMERULAR FILTRATION RATE > 60.0 (>51); GLUCOSE, FASTING 138 MG/DL (70-105); POTASSIUM SERUM 4.5 MEQ/L (3.5-5.1); SODIUM LEVEL 140 MEQ/L (136-145); TOTAL PROTEIN 8.2 GM/DL (6.4-8.2)
[2017-02-18] MEDS ORDERED: cloNIDine 0.1 MG TAB PO ONE ×2 (01:30→08:30)
[2017-02-18] MEDS ORDERED: ANEXSIA, NORCO 7.5MG/325MG TABLET(HYDROCODONE/APAP) PO ONE (01:30)
[2017-02-18] MEDS ORDERED: clonazePAM 0.5 MG TAB PO ONE (01:30)
[2017-02-18] MEDS ORDERED: DULoxetine 30 MG CAP (CYMBALTA) PO ONE (08:30)
[2017-02-18] MEDS ORDERED: NORCO, ANEXSIA 5/325MG TABLET (HYDROcodone/ACETAMINOPHEN) PO ONE (08:30)
[2017-02-18] MEDS ORDERED: OMEPRAZOLE 20 MG CAP PO ONE (08:30)
[2017-02-18] MEDS ORDERED: **hydrALAZINE HCL** 25 MG TAB PO ONE (12:45)
[2017-02-18] MEDS ORDERED: OXAZEPAM 15 MG CAP PO ONE (12:45)
[2017-02-18] MEDS ORDERED: TYLE325T5 PO (13:20)
[2017-02-18] MEDS ORDERED: SUCR1TAB56 PO (13:20)
[2017-02-18] MEDS ORDERED: BENA25TA10 PO (13:20)
[2017-02-18] MEDS ORDERED: DULO1CAP3 PO (13:20)
[2017-02-18] MEDS ORDERED: VITA1CAP40 PO (13:20)
[2017-02-18] MEDS ORDERED: HYDR-3719 PO (13:20)
[2017-02-18] MEDS ORDERED: VITMTA PO (13:20)
[2017-02-18 14:59] VITALS: BP 176/108
[2017-02-18] MEDS: cloNIDine 0.1 MG TAB PO PRN (15:06)
[2017-02-18 18:00] VITALS: BP 138/98
[2017-02-18] MEDS ORDERED: MOM 30ML SUSPENSION UDC PO PRN (19:30)
[2017-02-18] MEDS ORDERED: MAALOX 30 ML SUSP *UDC PO PRN (19:30)
[2017-02-18] MEDS: diphenhydrAMINE 25 MG CAP PO SCH (21:01)
[2017-02-18] MEDS: NORCO, ANEXSIA 5/325MG TABLET (HYDROcodone/ACETAMINOPHEN) PO PRN (21:01)
[2017-02-18] MEDS: clonazePAM 0.5 MG TAB PO SCH (21:01)
[2017-02-18] MEDS: OMEPRAZOLE 20 MG CAP PO SCH (21:01)
[2017-02-18] MEDS: THIAMINE 100 MG TAB PO SCH (21:01)
[2017-02-19] VITALS (7 sets, daily range): BP systolic 153–170; BP diastolic 67–106
[2017-02-19] MEDS: NORCO, ANEXSIA 5/325MG TABLET (HYDROcodone/ACETAMINOPHEN) PO PRN ×5 (01:53→19:07)
[2017-02-19] MEDS: SUCRALFATE 1 GM TAB PO SCH ×3 (06:57→16:45)
[2017-02-19] MEDS: FOLIC ACID 1 MG TAB PO SCH (08:20)
[2017-02-19] MEDS: OMEPRAZOLE 20 MG CAP PO SCH ×2 (08:20→20:35)
[2017-02-19] MEDS: VITAMIN D 1,000 INTERNATIONAL UNITS TABLET PO SCH (08:21)
[2017-02-19] MEDS: MULTIVITAMINS/MINERALS THERAP 1 TAB PO SCH (08:21)
[2017-02-19] MEDS: THIAMINE 100 MG TAB PO SCH ×2 (08:21→20:34)
[2017-02-19] MEDS ORDERED: DULoxetine 30 MG CAP (CYMBALTA) PO SCH (09:00)
[2017-02-19] MEDS: LORazepam 2 MG TAB PO PRN ×2 (10:15→14:46)
--- NOTE | 2017-02-19 10:25 | HPEPDOC ---
Medical History and Physical Date of Admission Feb 18, 2017 at 12:21 History and Physical PCP: Betty ATTENDING: Dr. Yovani Mcintyre HPI: 51 yo F admitted to [facility] for depressive disorder, being medically examined today. Patient states she has chronic neck pain and low back pain. She follows with [facility] pain management. She had cervical epidural procedure with Dr. Luther . She states her pain remains uncontrolled. Denies any fevers, chills, weakness, fatigue, RAMOS, CP, SOB, cough, palpitations , abdominal pain, N/V/D or changes in bowel or bladder habits. PMH MIGRAINE RAMOS HTN (-CONTROLLED WITH WEIGHT LOSS) HYPERLIPIDEMIA (-CONTROLLED WITH WEIGHT LOSS) METABOLIC SYNDROME (CONTROLLED WITH WEIGHT LOSS) DEPRESSION ANXIETY ENDOMETRIOSIS DR. SCHAFFER FATTY LIVER Left Breast CA/ BREAST CA STAGE 1 05/29. Radiation and hormone therapy. Follows with [facility]. Next appointment and approximate 3 weeks as per patient. Chronic lymphedema left arm. PELVIC FRACTURE FROM - 1982 OSTEOPENIA Chronic pain. Neck pain. Back pain. Follows with [facility] pain management Fibromyalgia SURGICAL HISTORY GASTRIC BYPASS X2 RUPTURED BLADDER REPAIR HYSTERECTOMY 2003 LEFT BREAST LUMPECTOMY LEFT AXILLARY LYMPH NODE STRING REMOVAL 05/29 SOCHX: Resides in: [facility] Marital Status: Kids: 2 Employment: Unemployed Tobacco use: Denies ETOH: States she had not consumed any alcohol for 3 months then over the past few days "a lot" Illicit Drugs: Denies IV Drug Use: Denies Tattoos done unprofessionally: Denies FAMHX: Mother: Alive, well Father: Unknown Siblings: Alive, well Children: Alive, well Unexpected deaths due to medical reasons: None. ROS: As noted in HPI, otherwise 11pt ROS of systems reviewed and remarkable only for LMP NA, hysterectomy. PE: GEN: 51 yo F, appears stated age. Well-nourished, well developed. No acute distress. Alert and oriented x 3. Pleasant, interactive. HEENT: Normocephalic, atraumatic. Pupils are equal, round, and reactive to light. Extraocular movements are intact. No nystagmus appreciated. Sclera are nonicteric. Conjunctiva without injection. Nose midline. Nasal turbinates without bogginess. EACs both patent BL. TMs both visualized and reed with good cone of light, no bulging or erythema. No facial asymmetry. Moist mucous membranes. Dentition fair. Pharynx pink and moist, no cobblestoning. Neck supple , trachea midline. No lymphadenopathy or thyromegaly appreciated. CHEST: Regular rate and rhythm, +S1, +S2 LUNGS: Clear to auscultation bilaterally. No wheezes, rales, or rhonchi. Breathing appears symmetric and easy. Patient is speaking in full sentences. No accessory muscle use. ABD: Round, soft, non-tender, non-distended. +Bowel sounds throughout. No rebound or guarding. No costovertebral angle tenderness. EXT: Pulses 2+ bilaterally dorsalis pedis and radial. No lower extremity edema appreciated. SKIN: Eek, dry, warm. Capillary refill <2sec. No rashes. NEURO: Alert and oriented x 3. Cranial nerves III-XII are intact. No focal deficits appreciated. EKG: Pending MRI brain 10/05 There is no evidence of intracranial lesion. Cervical spine MRI 10/05 Degenerative spondylosis changes at C4-5 and C5-6 with uncovertebral spurring bilaterally at these levels. This is more pronounced on the left at both of these levels. No abnormal gadolinium enhancement is seen. The findings are essentially unchanged from the December 03, 2011 prior exam. A&P: 51 yo F admitted to [facility] for depressive disorder 1. Psych. Plan per Psychiatry. Obtain baseline EKG to assure the safety of psychiatric medications as they can prolong the QT interval. 2. History of breast cancer. Continue outpatient follow-up with [facility]. Patient states she has an appointment in approximately 3 weeks. 3. Chronic pain. Chronic neck pain/low back pain. Continue with [place] 5/325 one tablet every 4 hours as needed. ISTOP reference number [id number] indicates hydrocodone 10/[address] Luther dispensed 02/01/17. Request pain management opinion as per patient request. 4. Follow up with PCP on discharge. 5. Substance use. Per psychiatry. Continue with MVI, Thiamine, and Folic Acid supplementation. 6. GERD. Continue Prilosec 40 mg twice a day, Carafate 1 g 3 times a day. 7. Vitamin D deficiency. Continue vitamin D supplements. 8. Thrombocytosis. Previously within normal limits 07/07. Recheck CBC in a.m. 9. Elevated blood pressure. Patient does not take any medications as outpatient. She does have clonidine 0.1 mg 3 times a day as needed on her list however the patient states she uses this for leg spasm as outpatient. Monitor. Bony NELSON present throughout exam. Vital Signs Vital Signs Date Time Temp Pulse Resp B/P (MAP) Pulse Ox O2 Delivery O2 Flow Rate FiO2 02/19/17 10:08 128 166/106 02/19/17 06:55 97.1 20 02/18/17 14:59 96 Room Air Laboratory Data Labs 24H Item Value Date Time White Blood Count 7.1 K/mm3 02/17/171 Red Blood Count 4.81 M/mm3 02/17/171 Hemoglobin 13.5 g/dl 02/17/171900 Hematocrit 40.3 % 02/17/171900 Mean Corpuscular Volume 83.6 fl 02/17/171900 Mean Corpuscular Hemoglobin 28.0 pg 02/17/171900 Mean Corpuscular Hemoglobin Concent 33.4 g/dl 02/17/171900 Red Cell Distribution Width 16.1 % H 02/17/171900 Platelet Count 649 k/mm3 H 02/17/171900 Sodium Level 140 MEQ/L 02/17/171 Potassium Level 4.5 MEQ/L 02/17/171 Chloride Level 103 MEQ/L 02/17/171900 Carbon Dioxide Level 19 MEQ/L L 02/17/171 Anion Gap 18 MEQ/L H 02/17/171900 Blood Urea Nitrogen 6 MG/DL L 02/17/17 1901 Creatinine 0.87 MG/DL 02/17/171900 Glomerular Filtration Rate > 60.0 02/17/171 Fasting Glucose 138 MG/DL H 02/17/17 1901 Calcium Level 8.8 MG/DL 02/17/171 Total Bilirubin 0.2 MG/DL 02/17/171 Direct Bilirubin < 0.1 MG/DL 02/17/171900 Aspartate Amino Transf (AST/SGOT) 30 U/L 02/17/17 1901 Alanine Aminotransferase (ALT/SGPT) 24 U/L 02/17/17 1901 Alkaline Phosphatase 184 U/L H 02/17/171 Total Protein 8.2 GM/DL 02/17/171 Albumin 3.8 GM/DL 02/17/171900 Albumin/Globulin Ratio 0.86 L 02/17/171900 Thyroid Stimulating Hormone (TSH) 0.649 uIU/ML 02/17/171900 Home Medications Scheduled Clonazepam (Klonopin) 0.5 Mg Tab, 0.5 MG PO QHS Clonidine Hydrochloride (Clonidine HCl) 0.1 Mg Tab, 0.1 MG PO TID Diphenhydramine Hcl (Benadryl Allergy) 25 Mg Tab, 25 MG PO QHS FOR SLEEP Duloxetine Hcl (Duloxetine HCl) 60 Mg Cap, 60 MG PO DAILY Ergocalciferol (Vitamin D) 50,000 Unit Cap, 50,000 UNIT PO QWEEK ON SUNDAYS Multivitamins *[facility] STOCKED* (Thera M Plus *[facility] STOCKED*) 1 Tab Tab, 1 TAB PO DAILY Omeprazole (Omeprazole) 40 Mg Cap, 40 MG PO BID Sucralfate (Sucralfate) 1 Gm Tab, 1 GM PO TID Vitamin D (Vitamin D) 1,000 Unit Cap, 1,000 UNIT PO DAILY Scheduled PRN Acetaminophen (Tylenol) 325 Mg Tab, 650 MG PO Q6H PRN for PAIN Acetaminophen/Hydrocodone (Hydrocodone/Acetaminophen 10-325 mg) 1 Tab Tab, 1 TAB PO Q4H PRN for PAIN Allergies Coded Allergies: Bee Venom (Unverified Allergy, Severe, THROAT SWELLS, 09/21/12) Red Dye (Verified Allergy, Severe, THROAT SWELLS, HIVES, 03/06/16) 02/29/16 No reaction noted upon recieving one dose of Hydralazine 10mg orally Amitriptyline (Verified Allergy, Intermediate, FACIAL SWELLING, 09/21/12) Sulfa Drugs (Verified Allergy, Intermediate, hives, 09/21/12) Sulfa Drugs Cross Reactors (Verified Allergy, Intermediate, hives, 09/21/12) Tramadol (Verified Adverse Reaction, Severe, SEVERE NAUSEA, 09/21/12) Carisoprodol (Verified Adverse Reaction, Mild, DIARRHEA, 12/07/12) Zolpidem (Verified Adverse Reaction, Mild, NIGHT EATING/WALKING, 09/21/12) NSAIDs (Verified Adverse Reaction, Unknown, CANT TAKE DUE TO GASTRIC BYPASS, 11/20/13) Jimena Mann Feb 19, 2017 10:25
[2017-02-19] MEDS: cloNIDine 0.1 MG TAB PO PRN ×3 (10:32→20:35)
[2017-02-19] MEDS: diphenhydrAMINE 25 MG CAP PO SCH (20:34)
[2017-02-19] MEDS: DULoxetine 30 MG CAP (CYMBALTA) PO SCH (20:34)
[2017-02-19] MEDS: clonazePAM 0.5 MG TAB PO SCH (20:35)
[2017-02-19] MEDS: ACETAMINOPHEN TAB 650MG DOSE (2X325MG) PO PRN (20:35)
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
[2017-02-20] MEDS: NORCO, ANEXSIA 5/325MG TABLET (HYDROcodone/ACETAMINOPHEN) PO PRN ×5 (02:49→19:31)
[2017-02-20] MEDS: SUCRALFATE 1 GM TAB PO SCH ×3 (06:30→16:43)
[2017-02-20 06:56] VITALS: BP 160/85
[2017-02-20] MEDS: OMEPRAZOLE 20 MG CAP PO SCH ×2 (08:07→21:04)
[2017-02-20] MEDS: MULTIVITAMINS/MINERALS THERAP 1 TAB PO SCH (08:07)
[2017-02-20] MEDS: VITAMIN D 1,000 INTERNATIONAL UNITS TABLET PO SCH (08:07)
[2017-02-20] MEDS: DULoxetine 30 MG CAP (CYMBALTA) PO SCH ×2 (08:07→21:03)
[2017-02-20] MEDS: FOLIC ACID 1 MG TAB PO SCH (08:07)
[2017-02-20 08:08] LABS: BASO % 0.8 % (0.0-1.0); EOS # 0.1 K/mm3 (0.0-0.50); EOS % 1.6 % (0.0-3.0); LARGE UNSTAINED CELL # 0.1 K/mm3 (0.0-0.4); LARGE UNSTAINED CELL % 3.3 % (0.0-4.0); LYMPH # 2.4 K/mm3 (1.5-4.5); LYMPH % 52.6 % (24.0-44.0); MEAN CORPUSCULAR HEMOGLOBIN 28.1 pg (27.0-33.0); MEAN CORPUSCULAR HGB CONC 33.1 g/dl (32.0-36.5); MEAN CORPUSCULAR VOLUME 84.7 fl (80.0-96.0); MONO # 0.3 K/mm3 (0.0-0.8); MONO % 6.7 % (0.0-5.0); NEUTROPHILS # 1.5 K/mm3 (1.8-7.7); PLATELET COUNT, AUTOMATED 485 k/mm3 (150-450); RED CELL DISTRIBUTION WIDTH 15.4 % (11.5-14.5); WHITE BLOOD COUNT 4.3 K/mm3 (4.0-10.0)
[2017-02-20] MEDS: THIAMINE 100 MG TAB PO SCH ×2 (08:08→21:03)
[2017-02-20 09:00] VITALS: BP 160/98
--- NOTE | 2017-02-20 09:49 | ECGEPIP ---
Stationary ECG Study [facility] Test Date: 2017-02-19 Pat Name: ELIZABETH ARCHIBALD Department: Room: [place] [address] Gender: F [employer]: : 1965 Requested By: Jimena Mann Order Number: [id number] Reading MD: Mo Overton Measurements Intervals [place] Rate: 110 P: 61 [place]: 166 QRS: 23 QRSD: 67 T: 44 QT: 315 QTc: 426 Interpretive Statements Sinus tachycardia. Somewhat slow precordial R-wave progression. Considerably faster heart rate with resolution of first-degree AV block and previously noted repolarization abnormalities 05/20/15. Electronically Signed On 02-20-2017 9:49:28 EDT by Mo Overton
[2017-02-20 11:22] VITALS: BP 148/92
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
[2017-02-20 18:00] VITALS: BP 150/87
[2017-02-20] MEDS: hydrOXYzine 50 MG TAB PO PRN (18:37)
[2017-02-20] MEDS: traZODone 50 MG TAB PO PRN (21:03)
[2017-02-20] MEDS: diphenhydrAMINE 25 MG CAP PO SCH (21:03)
[2017-02-20] MEDS: clonazePAM 0.5 MG TAB PO PRN (21:03)
[2017-02-21 01:24] VITALS: BP 152/102
[2017-02-21] MEDS: cloNIDine 0.1 MG TAB PO PRN ×2 (01:28→15:21)
[2017-02-21] MEDS: NORCO, ANEXSIA 5/325MG TABLET (HYDROcodone/ACETAMINOPHEN) PO PRN ×5 (01:29→21:12)
[2017-02-21 06:26] VITALS: BP 113/61
[2017-02-21] MEDS: SUCRALFATE 1 GM TAB PO SCH ×3 (06:47→16:34)
[2017-02-21 07:30] VITALS: BP 113/61
[2017-02-21] MEDS: VITAMIN D 1,000 INTERNATIONAL UNITS TABLET PO SCH (08:24)
[2017-02-21] MEDS: FOLIC ACID 1 MG TAB PO SCH (08:24)
[2017-02-21] MEDS: THIAMINE 100 MG TAB PO SCH (08:24)
[2017-02-21] MEDS: DULoxetine 30 MG CAP (CYMBALTA) PO SCH ×2 (08:24→21:13)
[2017-02-21] MEDS: MULTIVITAMINS/MINERALS THERAP 1 TAB PO SCH (08:24)
[2017-02-21] MEDS: OMEPRAZOLE 20 MG CAP PO SCH ×2 (08:24→21:12)
[2017-02-21] MEDS: hydrOXYzine 50 MG TAB PO PRN (15:20)
[2017-02-21 15:30] VITALS: BP 156/90
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
[2017-02-21 18:00] VITALS: BP 130/80
[2017-02-21] MEDS: diphenhydrAMINE 25 MG CAP PO SCH (21:11)
[2017-02-21] MEDS: traZODone 50 MG TAB PO PRN (21:11)
[2017-02-21] MEDS: clonazePAM 0.5 MG TAB PO PRN (21:11)
[2017-02-22] MEDS: cloNIDine 0.1 MG TAB PO PRN ×3 (03:56→23:47)
[2017-02-22] MEDS: NORCO, ANEXSIA 5/325MG TABLET (HYDROcodone/ACETAMINOPHEN) PO PRN ×5 (03:57→21:31)
[2017-02-22] MEDS: SUCRALFATE 1 GM TAB PO SCH ×3 (06:47→16:35)
[2017-02-22 06:57] VITALS: BP 130/71
[2017-02-22 08:00] VITALS: BP 130/71
[2017-02-22] MEDS: OMEPRAZOLE 20 MG CAP PO SCH ×2 (08:18→21:31)
[2017-02-22] MEDS: VITAMIN D 1,000 INTERNATIONAL UNITS TABLET PO SCH (08:18)
[2017-02-22] MEDS: FOLIC ACID 1 MG TAB PO SCH (08:19)
[2017-02-22] MEDS: MULTIVITAMINS/MINERALS THERAP 1 TAB PO SCH (08:19)
[2017-02-22] MEDS: DULoxetine 30 MG CAP (CYMBALTA) PO SCH ×2 (08:19→21:31)
[2017-02-22 18:00] VITALS: BP 149/72
[2017-02-22] MEDS: clonazePAM 0.5 MG TAB PO PRN (21:30)
[2017-02-22] MEDS: traZODone 50 MG TAB PO PRN (21:30)
[2017-02-22] MEDS: diphenhydrAMINE 25 MG CAP PO SCH (21:30)
[2017-02-23] MEDS: NORCO, ANEXSIA 5/325MG TABLET (HYDROcodone/ACETAMINOPHEN) PO PRN ×4 (05:42→23:07)
[2017-02-23 06:18] VITALS: BP 142/98
[2017-02-23] MEDS: SUCRALFATE 1 GM TAB PO SCH ×3 (06:42→17:29)
[2017-02-23 08:00] VITALS: BP 142/98
[2017-02-23] MEDS: VITAMIN D 1,000 INTERNATIONAL UNITS TABLET PO SCH (09:00)
[2017-02-23] MEDS: OMEPRAZOLE 20 MG CAP PO SCH ×2 (09:00→21:23)
[2017-02-23] MEDS: MULTIVITAMINS/MINERALS THERAP 1 TAB PO SCH (09:00)
[2017-02-23] MEDS: FOLIC ACID 1 MG TAB PO SCH (09:00)
[2017-02-23] MEDS: DULoxetine 30 MG CAP (CYMBALTA) PO SCH ×2 (09:00→21:22)
[2017-02-23] MEDS: cloNIDine 0.1 MG TAB PO PRN (09:01)
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
[2017-02-23 18:00] VITALS: BP 142/88
[2017-02-23] MEDS: clonazePAM 0.5 MG TAB PO PRN (21:22)
[2017-02-23] MEDS: diphenhydrAMINE 25 MG CAP PO SCH (21:23)
[2017-02-23] MEDS: ACETAMINOPHEN TAB 650MG DOSE (2X325MG) PO PRN (21:23)
[2017-02-23] MEDS: traZODone 50 MG TAB PO PRN (21:23)
[2017-02-23 23:02] VITALS: BP 183/81
[2017-02-23] MEDS: hydrOXYzine 50 MG TAB PO PRN (23:07)
[2017-02-23 23:08] VITALS: BP 183/78
[2017-02-23 23:50] VITALS: BP 142/78
[2017-02-24] MEDS: hydrOXYzine 50 MG TAB PO PRN (06:22)
[2017-02-24] MEDS: SUCRALFATE 1 GM TAB PO SCH ×2 (06:22→11:36)
[2017-02-24 06:23] VITALS: BP 199/113
[2017-02-24] MEDS: NORCO, ANEXSIA 5/325MG TABLET (HYDROcodone/ACETAMINOPHEN) PO PRN ×3 (06:23→14:37)
[2017-02-24] MEDS: cloNIDine 0.1 MG TAB PO PRN (06:23)
[2017-02-24 06:51] VITALS: BP 156/98
[2017-02-24 07:43] VITALS: BP 120/82
[2017-02-24] MEDS: DULoxetine 30 MG CAP (CYMBALTA) PO SCH (09:04)
[2017-02-24] MEDS: FOLIC ACID 1 MG TAB PO SCH (09:04)
[2017-02-24] MEDS: VITAMIN D 1,000 INTERNATIONAL UNITS TABLET PO SCH (09:04)
[2017-02-24] MEDS: OMEPRAZOLE 20 MG CAP PO SCH (09:04)
[2017-02-24] MEDS: MULTIVITAMINS/MINERALS THERAP 1 TAB PO SCH (09:04)
[2017-02-24] MEDS ORDERED: HYDRO50TAB PO (09:54)
[2017-02-24] MEDS ORDERED: DULO30CA PO (09:54)
[2017-02-24] MEDS ORDERED: FOLI1TAB4 PO (09:54)
[2017-02-24] MEDS ORDERED: TRAZO50TA PO (09:54)
[2017-02-24] MEDS ORDERED: SUMAtriptan SUCCINATE 25 MG TAB PO ONE (10:30)
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
== END 2017-02-24 15:25 | disposition home or self-care (01) | DRG 755 ==
LOC: M ED 18:29 → M ED INP 02-18 12:21 → M PSY 02-18 14:52
PROVIDERS: ADMIT Psychiatry & Neurology Psychiatry; ATTEND Psychiatry & Neurology Psychiatry
DX: F43.10 Post-traumatic stress disorder, unspecified (principal); F32.2 Major depressive disorder, single episode, severe without psychotic features; G89.29 Other chronic pain; F10.10 Alcohol abuse, uncomplicated; M54.2 Cervicalgia; M85.80 Other specified disorders of bone density and structure, unspecified site; M79.7 Fibromyalgia; K21.9 Gastro-esophageal reflux disease without esophagitis; D47.3 Essential (hemorrhagic) thrombocythemia; E55.9 Vitamin D deficiency, unspecified; M54.5 Low back pain; Z79.899 Other long term (current) drug therapy; Z85.3 Personal history of malignant neoplasm of breast; Z91.030 Bee allergy status; Z91.041 Radiographic dye allergy status; Z88.2 Allergy status to sulfonamides; Z88.5 Allergy status to narcotic agent; Z88.6 Allergy status to analgesic agent; Z88.8 Allergy status to other drugs, medicaments and biological substances; Z92.3 Personal history of irradiation; Z62.810 Personal history of physical and sexual abuse in childhood

== ENCOUNTER → 2017-03-09 | Outpatient (CLI) | payer OTHER ==
[~2017-03-09] MED LIST changes: +BENA25TA10 PO; +DULO1CAP3 PO; +FOLI1TAB4 PO; +HYDR-3719 PO; +HYDRO50TAB PO; +SUCR1TAB56 PO; +TRAZO50TA PO; +TYLE325T5 PO; +VICO10TA11 PO; +VITA1CAP40 PO; +VITMTA PO
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
== END ==
LOC: M PAIN 10:30
PROVIDERS: ATTEND Nurse Practitioner Family
DX: M51.16 Intervertebral disc disorders with radiculopathy, lumbar region (principal); M50.222 Other cervical disc displacement at C5-C6 level; G89.29 Other chronic pain; M79.7 Fibromyalgia; Z79.891 Long term (current) use of opiate analgesic; Z79.899 Other long term (current) drug therapy; Z88.1 Allergy status to other antibiotic agents; Z91.030 Bee allergy status; Z91.041 Radiographic dye allergy status; Z91.09 Other allergy status, other than to drugs and biological substances

== ENCOUNTER → 2017-03-31 | Outpatient (CLI) | payer OTHER ==
[~2017-03-31] MED LIST changes: +FIORICET TAB PO ONE; +ISOVUE-M 300 61% 15ML VIAL (Q9967) As Ordered ONE; +LIDOCAINE 1% SDV INJ 30 ML VIAL As Ordered ONE; +diazePAM 10 MG TAB PO ONE; +diazePAM 5 MG TAB As Ordered ONE; +diphenhydrAMINE 25 MG CAP As Ordered ONE; +diphenhydrAMINE 25 MG CAP PO ONE; +methylPREDNISolone SUSP 40 MG/ML (DEPO-medrol) VIAL (J1030) As Ordered ONE; +oxyCODONE 5MG TAB As Ordered ONE; +oxyCODONE 5MG TAB PO ONE
--- NOTE | 2017-03-31 16:01 | REP ---
Partial lumbar spine series: Two views . History: Injection procedure for pain. 15 seconds of fluoroscopy time is reported. Findings: A sequence of two fluoroscopically obtained last image hold procedural spot radiographs of the lumbar spine document needle position and contrast injection associated with injection procedure. Signed by Matt Shelton MD 03/31/2017 03:53 P
--- NOTE | 2017-04-06 01:30 | ECWPNPC ---
PATIENT NAME: ELIZABETH ARCHIBALD : 1965 GENDER: FEMALE VISIT DATE: 03/31/2017 DISCHARGE DATE: 03/31/17 1148 VISIT LOCKED DATE TIME: PHYSICIAN: BARBARA DAVIS RESOURCE: BARBARA DAVIS REASON FOR APPOINTMENT 1. LESI HISTORY OF PRESENT ILLNESS HISTORY OF PRESENT ILLNESS: PAIN THE PATIENT DESCRIBES THE PAIN... THE PATIENT DESCRIBES THE PAIN... PAIN THE PATIENT DESCRIBES THE PAIN... THE PATIENT DESCRIBES THE PAIN... FALL RISK SCREENING: SCREENING :NO FALLS IN THE PAST YEAR :NO FALLS IN THE PAST YEAR SCREENING :NO FALLS IN THE PAST YEAR :NO FALLS IN THE PAST YEAR CURRENT MEDICATIONS TAKING CLONAZEPAM 0.5 MG TABLET 1 TABLET ORALLY QHS, NOTES: 03/30/17 TAKING CARAFATE 1 GM TABLET 1 TABLET ORALLY FOUR TIMES DAILY, NOTES: 03/30/17 TAKING MULTIVITAMINS OTC TABLET 1 TABLET ORALLY DAILY, NOTES: 03/30/17 TAKING CYMBALTA 60 MG CAPSULE DELAYED RELEASE PARTICLES 1 CAPSULE ORALLY DAILY, NOTES: 03/30/17 TAKING CALCIUM 600 + D 600-400 MG-UNIT TABLET 2 TABLETS ORALLY ONCE A DAY, NOTES: 03/30/17 TAKING OMEPRAZOLE 40 MG CAPSULE DELAYED RELEASE 1 CAPSULE ORALLY TWICE A DAY, NOTES: 03/30/17 TAKING VITAMIN D (ERGOCALCIFEROL) 88188 UNIT CAPSULE 1 CAPSULE ORALLY WEEKLY, NOTES: 03/28/17 TAKING IRON 325 (65 FE) MG TABLET 1 TABLET ORALLY TID, NOTES: 03/30/17 TAKING CYCLOBENZAPRINE HCL 10 MG TABLET 1 TABLET NEEDED ORALLY THREE TIMES A DAY, NOTES: 03/30/17 TAKING CLONIDINE HCL 0.1 MG TABLET 1 TABLET ORALLY TID MDD=3, NOTES: 03/30/17 TAKING HYDROXYZINE HCL 50 MG TABLET 1 TABLET NEEDED ORALLY EVERY 6 HRS, NOTES: 03/30/17 TAKING NORCO 10-325 MG TABLET 1 TABLET ORALLY EVERY 4 HRS PRN PAIN MDD=6, NOTES: 03/30/17 NOT-TAKING TRAZODONE HCL 50 MG TABLET 1 TABLET AT BEDTIME NEEDED ORALLY ONCE A DAY MEDICATION LIST REVIEWED AND RECONCILED WITH THE PATIENT PAST MEDICAL HISTORY PMS MIGRAINES HTN (-CONTROLLED WITH WEIGHT LOSS) HYPERLIPIDEMIA (-CONTROLLED WITH WEIGHT LOSS) METABOLIC SYNDROME (-CONTROLLED WITH WEIGHT LOSS) DEPRESSION/ ANXIETY DR. ALBERT ENDOMETRIOSIS DR. SCHAFFER FATTY LIVER BREAST CA STAGE 1 05/29 PELVIC FRACTURE FROM - 1982 OSTEOPENIA - DEXA 08/30, FRAX RISK: 4% MAJOR, 0.4% HIP LEFT BREAST CANCER-REMOVED ALLERGIES BACTRIM: HIVES: ALLERGY RED DYE: HIVES: ALLERGY BEE STINGS: ANAPHYLAXIS: ALLERGY LAUNDRY SOAP: RASH: ALLERGY SURGICAL HISTORY GASTRIC BYPASS X2 RUPTURED BLADDER REPAIR HYSTERECTOMY LEFT BREAST LUMPECTOMY LEFT AXILLARY LYMPH NODE STRING REMOVAL SOCIAL HISTORY GENERAL: TOBACCO USE ARE YOU A: NONSMOKER . LEARNING BARRIERS / SPECIAL NEEDS ORIENTED TO PLAN OF CARE: PATIENT, PAIN MANAGEMENT PATIENT, ORIENTED TO PLAN OF CARE: PATIENT, PAIN MANAGEMENT PATIENT. NEW PATIENT PAIN DIARY TODAY'S VISIT NOTES, FROM 0-10, WHAT LEVEL IS YOUR PAIN TODAY? 0. PAIN CLINIC PFS, CLERGY, PUBLIC HEALTH REFERRALS PFS REFERRAL NEEDED?NO CLERGY REFERRAL NEEDED?NO PUBLIC HEALTH REFERRAL NEEDED?NO WAS THE PROVIDER NOTIFIED OF ANY PERTINENT INFO?NO HAS THE PATIENT BEEN EDUCATED REGARDING HIS/HER PLAN OF CARE?YES HAS THE PATIENT BEEN EDUCATED REGARDING PAIN, THE RISK FOR PAIN, THE IMPORTANCE OF EFFECTIVE PAIN MANAGEMENT, AND THE PAIN ASSESSMENT PROCESS?YES HOSPITALIZATION/MAJOR DIAGNOSTIC PROCEDURE SURGERIES GI BLEEDING AT SITE OF GASTRIC BYPASS 02/2106 REVIEW OF SYSTEMS REVIEWED BY: PROVIDER: , . CONSTITUTIONAL: ANY CHANGE IN YOUR MEDICAL CONDITION? NO, NO . CHILLS NO, NO . FEVER NO, NO . INFECTION: DO YOU HAVE NEW INFECTIONS? NO, NO . DO YOU HAVE HISTORY OF MRSA? NO, NO . MUSCULOSKELETAL: ANY NEW PATTERNS OF PAIN OR NUMBNESS? NO, NO . GASTROENTEROLOGY: ANY NEW CHANGE IN BOWEL CONTROL? NO, NO . GENITOURINARY: ANY NEW CHANGE IN BLADDER CONTROL? NO, NO . IS THERE A CHANCE YOU COULD BE ? NO, NO . HEMATOLOGY/LYMPH: DO YOU TAKE ANY BLOOD THINNERS? (FOR EXAMPLE- COUMADIN, PLAVIX, AGGRENOX, PLATEL, PRADAXA, OR XARELTO) NO, NO . WHEN WAS YOUR LAST DOSE? DATE: TIME: , DATE: TIME: . NEUROLOGY: HAVE YOU FALLEN IN THE PAST 6 MONTHS? YES, PT STATES SHE FELL 2 DAYS AGO IN THE MIDDLE OF THE NIGHT FROM WEAKNESS IN RIGHT LEG. PT DENIES SEEKING MEDICAL TX FOR ANY MAJOR INJURIES, NO . ANY NEW EXTREMITY NUMBNESS OR WEAKNESS? NO, NO . CARDIOLOGY: DO YOU HAVE A PACEMAKER OR DEFIBRILLATOR? NO, NO . RESPIRATORY: HAVE YOU BEEN SICK IN THE PAST WEEK? NO, NO . FEVER NO, NO . FLU LIKE SYMPTOMS? NO, NO . COUGH NO, NO . INTEGUMENTARY: DO YOU HAVE ANY RASHES OR OPEN SORES? NO, NO . ALLERGIC/IMMUNO: ARE YOU ALLERGIC TO SHELLFISH OR IV DYE? NO, NO . ANY NEW ALLERGIES? NO, NO . PSYCHIATRIC: DO YOU HAVE THOUGHTS OF HURTING YOURSELF OR SOMEONE ELSE? NO, NO . ARE YOU ABUSED, NEGLECTED, OR IN AN UNSAFE ENVIRONMENT? NO, NO . ENDOCRINOLOGY: ARE YOU DIABETIC? NO, NO . OTHER: DO YOU NEED ANY PRESCRIPTIONS? NO, NO . IF YES, PLEASE LIST: ____, ____ . ANY NEW PROBLEMS WITH YOUR MEDICATIONS? NO, NO . WHEN DID YOU LAST EAT? 03/30/17 1900, ____ . WHEN DID YOU LAST DRINK? 03/31/17 0800, ____ . WHAT DID YOU LAST DRINK? WATER, ____ . NAME OF PERSON DRIVING YOU HOME? TANIA ARCHIBALD, ____ . DO YOU HAVE ANY OTHER QUESTIONS OR CONCERNS NO, NO . VITAL SIGNS WT 164 LBS, HT 61 IN, BMI 30.98 INDEX, BP 138/82 MM HG, HR 86 /MIN, RR 16 /MIN, TEMP 98.7 F, OXYGEN SAT % 97, REVIEWED BY: EM. ASSESSMENTS INTERVERTEBRAL DISC DISORDER WITH RADICULOPATHY OF LUMBAR REGION - M51.16 (PRIMARY) PROCEDURES PRE PROCEDURE DIAGNOSIS LUMBAR DISC DISORDER WITH RADICULOPATHY POST PROCEDURE DIAGNOSIS LUMBAR DISC DISORDER WITH RADICULOPATHY PROCEDURE LUMBAR EPIDURAL STEROID INJECTION UNDER FLUOROSCOPIC GUIDANCE SURGEON DR. BARBARA DAVIS ASSISTANT FINANCE MANAGER NONE ANESTHESIA LOCAL PRE PROCEDURE NOTE THE PATIENT HAS A HISTORY OF CHRONIC LOW BACK PAIN. I EVALUATE THE PATIENT AND REVIEWED THE CHART. I WENT OVER THE RISKS, ALTERNATIVES, AND BENEFITS ASSOCIATED WITH THIS PROCEDURE. THE PATIENT WOULD LIKE TO PROCEED AND GIVE CONSENT TO PERFORMED THE PROCEDURE. THE PATIENT DENIES UNEXPLAINABLE WEIGHT LOSS, FEVER, CHILLS, OR NEW CHANGES IN URINARY OR BOWEL CONTROL. DESCRIPTION OF PROCEDURE THE PATIENT WAS BROUGHT TO THE PROCEDURE ROOM AND PLACED IN THE PRONE POSITION. THE LUMBOSACRAL AREA WAS CLEANED WITH BETADINE SOLUTION AND DRAPED ASEPTICALLY. THE PROCEDURE WAS DONE UNDER STERILE CONDITIONS. I CHECKED LATERALITY AND THE LEVEL WHERE THE PROCEDURE WAS GOING TO BE PERFORMED WITH THE PATIENT AND THE SUPPORTING STAFF AT THE MOMENT OF THE TIME OUT IN THE PROCEDURE ROOM. UNDER FLUOROSCOPIC GUIDANCE, THE TARGET POINT WAS SELECTED AT THE INTERLAMINAR LEVEL OF L4-L5. LIDOCAINE WAS USED TO NUMB THE SKIN AND THE SUBCUTANEOUS TISSUE BELOW IT. EPIDURAL TUOHY NEEDLE, 17-GAUGE, WAS ADVANCED UNDER FLUOROSCOPIC GUIDANCE AND FOLLOWING PATIENT FEEDBACK UNTIL THE EPIDURAL SPACE WAS REACHED, 7 CM DEEP INTO THE SKIN BY THE LOSS OF RESISTANCE TECHNIQUE. ISOVUE M DYE 30%, 0.25 ML, WAS INJECTED SHOWING ADEQUATE SPREAD OF THE DYE. THEN, A SOLUTION OF 3 ML OF NORMAL SALINE WITH DEPO-MEDROL 60 MG WAS INJECTED SLOWLY FOLLOWING PATIENT FEEDBACK. THERE WAS NO EVIDENCE OF BLOOD, PARESTHESIA OR CEREBROSPINAL FLUID DURING THE PROCEDURE. THE PATIENT WAS SENT TO THE RECOVERY ROOM. THE PATIENT WAS MOVING THE EXTREMITIES AND DOING WELL. THERE WAS NO COMPLICATION DURING THE PROCEDURE. FLUOROSCOPY TIME WAS 15 SECONDS. POST PROCEDURE NOTE THE PATIENT WILL BE SEEN IN A FOLLOW UP IN THE NEXT FEW WEEKS. INSTRUCTIONS WERE GIVEN, QUESTIONS WERE ANSWERED, AND THE PATIENT EXPRESSED UNDERSTANDING AND AGREES WITH THE PLAN. I, SHAHID MILLER, DOCUMENTED THE ABOVE INFORMATION ACTING A SCRIBE FOR DR. DAVIS. I HAVE REVIEWED THE ABOVE DOCUMENT, WRITTEN BY SHAHID MONTIEL AND I VERIFY THAT IT IS ACCURATE DIAGNOSTIC IMAGING [facility] FLUORO GUIDE SPINE INJECTION (PAIN)[id number] PROCEDURE CODES 41558 LUMBAR/SACRAL W/ IMAGING 6045F RADXPS IN END [id number] PXD DISPOSITION & COMMUNICATION FOLLOW UP 3 WEEKS ELECTRONICALLY SIGNED BY BARBARA DAVIS MD ON 04/05/2017 AT 02:47 AM EDT DISCLAIMER : THIS IS A VISIT SUMMARY EXTRACTED FROM THE [employer] CHART. IT IS NOT A COPY OF THE [employer] PROGRESS NOTE. LUCÍA
== END ==
LOC: M PAIN 10:00
PROVIDERS: ATTEND Anesthesiology
DX: G89.29 Other chronic pain (principal); M51.16 Intervertebral disc disorders with radiculopathy, lumbar region; M54.5 Low back pain; G43.809 Other migraine, not intractable, without status migrainosus; Z79.891 Long term (current) use of opiate analgesic; Z79.899 Other long term (current) drug therapy; Z98.84 Bariatric surgery status; Z90.710 Acquired absence of both cervix and uterus; Z88.1 Allergy status to other antibiotic agents; Z91.048 Other nonmedicinal substance allergy status; Z91.030 Bee allergy status
CPT/HCPCS: 62323; J1030; Q9967

== ENCOUNTER → 2017-04-02 | Outpatient (CLI) | payer OTHER ==
[~2017-04-02] MED LIST changes: -FIORICET TAB PO ONE; -ISOVUE-M 300 61% 15ML VIAL (Q9967) As Ordered ONE; -LIDOCAINE 1% SDV INJ 30 ML VIAL As Ordered ONE; -diazePAM 10 MG TAB PO ONE; -diazePAM 5 MG TAB As Ordered ONE; -diphenhydrAMINE 25 MG CAP As Ordered ONE; -diphenhydrAMINE 25 MG CAP PO ONE; -methylPREDNISolone SUSP 40 MG/ML (DEPO-medrol) VIAL (J1030) As Ordered ONE; -oxyCODONE 5MG TAB As Ordered ONE; -oxyCODONE 5MG TAB PO ONE
--- NOTE | 2017-05-04 01:56 | ECWPNPC ---
PATIENT NAME: ELIZABETH ARCHIBALD : 1965 GENDER: FEMALE VISIT DATE: 04/02/2017 DISCHARGE DATE: 04/02/17 1017 VISIT LOCKED DATE TIME: PHYSICIAN: OMID BALTAZAR RESOURCE: OMID BALTAZAR REASON FOR APPOINTMENT 1. MEDS HISTORY OF PRESENT ILLNESS HISTORY OF PRESENT ILLNESS: PAIN THE PATIENT DESCRIBES THE PAIN... FALL RISK SCREENING: SCREENING :NO FALLS IN THE PAST YEAR TODAY'S VISIT: NOTES: IS S/P LESB ON 03/31/17.IS SEEN TODAY FOR NEW PROBLEM OF POST PROCEDURE HEADACHE. REPORTED AT THE TIME OF THE PROCEDURE HAD SUDDEN ONSET HEADACHE. STATES THAT THE PAIN ENCOMPASSED THE WHOLE HEAD. DEVELOPED SENS TO LIGHGT AT 24 HOUR YAN. HAS CONTINUED TO HAVE SOME NAUSEA AND HAS NOT BEEN ABLE TO EAT. WAS GIVEN FIORICET HERE AT PAIN CENTER WITH SOME IMPROVEMT. NO IMPROVEMENT IN LOW BACK OR HIP PAIN. NO NEW N/T/W. CURRENT MEDICATIONS UNKNOWN CLONAZEPAM 0.5 MG TABLET 1 TABLET ORALLY QHS UNKNOWN CARAFATE 1 GM TABLET 1 TABLET ORALLY FOUR TIMES DAILY UNKNOWN MULTIVITAMINS OTC TABLET 1 TABLET ORALLY DAILY UNKNOWN CYMBALTA 60 MG CAPSULE DELAYED RELEASE PARTICLES 1 CAPSULE ORALLY DAILY UNKNOWN CALCIUM 600 + D 600-400 MG-UNIT TABLET 2 TABLETS ORALLY ONCE A DAY UNKNOWN OMEPRAZOLE 40 MG CAPSULE DELAYED RELEASE 1 CAPSULE ORALLY TWICE A DAY UNKNOWN VITAMIN D (ERGOCALCIFEROL) 19586 UNIT CAPSULE 1 CAPSULE ORALLY WEEKLY UNKNOWN IRON 325 (65 FE) MG TABLET 1 TABLET ORALLY TID UNKNOWN CYCLOBENZAPRINE HCL 10 MG TABLET 1 TABLET NEEDED ORALLY THREE TIMES A DAY UNKNOWN CLONIDINE HCL 0.1 MG TABLET 1 TABLET ORALLY TID MDD=3 UNKNOWN HYDROXYZINE HCL 50 MG TABLET 1 TABLET NEEDED ORALLY EVERY 6 HRS UNKNOWN NORCO 10-325 MG TABLET 1 TABLET ORALLY EVERY 4 HRS PRN PAIN MDD=6 UNKNOWN [id number] 50-325-40 MG TABLET 1 TABLET NEEDED ORALLY FOR HEADACHES EVERY 6 HRS MDD3, NOTES: NOT STARTED YET UNKNOWN TRAZODONE HCL 50 MG TABLET 1 TABLET AT BEDTIME NEEDED ORALLY ONCE A DAY MEDICATION LIST REVIEWED AND RECONCILED WITH THE PATIENT PAST MEDICAL HISTORY PMS MIGRAINES HTN (-CONTROLLED WITH WEIGHT LOSS) HYPERLIPIDEMIA (-CONTROLLED WITH WEIGHT LOSS) METABOLIC SYNDROME (-CONTROLLED WITH WEIGHT LOSS) DEPRESSION/ ANXIETY DR. ALBERT ENDOMETRIOSIS DR. SCHAFFER FATTY LIVER BREAST CA STAGE 1 05/29 PELVIC FRACTURE FROM - 1982 OSTEOPENIA - DEXA 08/30, FRAX RISK: 4% MAJOR, 0.4% HIP LEFT BREAST CANCER-REMOVED ALLERGIES BACTRIM: HIVES: ALLERGY RED DYE: HIVES: ALLERGY BEE STINGS: ANAPHYLAXIS: ALLERGY LAUNDRY SOAP: RASH: ALLERGY SOCIAL HISTORY GENERAL: TOBACCO USE ARE YOU A: NONSMOKER . LEARNING BARRIERS / SPECIAL NEEDS ORIENTED TO PLAN OF CARE: PATIENT, PAIN MANAGEMENT PATIENT, ORIENTED TO PLAN OF CARE: PATIENT, PAIN MANAGEMENT PATIENT. NEW PATIENT PAIN DIARY TODAY'S VISIT NOTES, FROM 0-10, WHAT LEVEL IS YOUR PAIN TODAY? 0. PAIN CLINIC PFS, CLERGY, PUBLIC HEALTH REFERRALS PFS REFERRAL NEEDED?NO CLERGY REFERRAL NEEDED?NO PUBLIC HEALTH REFERRAL NEEDED?NO WAS THE PROVIDER NOTIFIED OF ANY PERTINENT INFO?NO HAS THE PATIENT BEEN EDUCATED REGARDING HIS/HER PLAN OF CARE?YES HAS THE PATIENT BEEN EDUCATED REGARDING PAIN, THE RISK FOR PAIN, THE IMPORTANCE OF EFFECTIVE PAIN MANAGEMENT, AND THE PAIN ASSESSMENT PROCESS?YES REVIEW OF SYSTEMS REVIEWED BY: PROVIDER: OMID RODRIGUEZ . CONSTITUTIONAL: ANY CHANGE IN YOUR MEDICAL CONDITION? NO . CHILLS NO . FEVER NO . INFECTION: DO YOU HAVE NEW INFECTIONS? NO . DO YOU HAVE HISTORY OF MRSA? NO . MUSCULOSKELETAL: ANY NEW PATTERNS OF PAIN OR NUMBNESS? NO . GASTROENTEROLOGY: ANY NEW CHANGE IN BOWEL CONTROL? NO . GENITOURINARY: ANY NEW CHANGE IN BLADDER CONTROL? NO . IS THERE A CHANCE YOU COULD BE ? NO . HEMATOLOGY/LYMPH: DO YOU TAKE ANY BLOOD THINNERS? (FOR EXAMPLE- COUMADIN, PLAVIX, AGGRENOX, PLATEL, PRADAXA, OR XARELTO) NO . WHEN WAS YOUR LAST DOSE? DATE: TIME: . NEUROLOGY: HAVE YOU FALLEN IN THE PAST 6 MONTHS? NO . ANY NEW EXTREMITY NUMBNESS OR WEAKNESS? NO . CARDIOLOGY: DO YOU HAVE A PACEMAKER OR DEFIBRILLATOR? NO . RESPIRATORY: HAVE YOU BEEN SICK IN THE PAST WEEK? NO . FEVER NO . FLU LIKE SYMPTOMS? NO . COUGH NO . INTEGUMENTARY: DO YOU HAVE ANY RASHES OR OPEN SORES? NO . ALLERGIC/IMMUNO: ARE YOU ALLERGIC TO SHELLFISH OR IV DYE? NO . ANY NEW ALLERGIES? NO . PSYCHIATRIC: DO YOU HAVE THOUGHTS OF HURTING YOURSELF OR SOMEONE ELSE? NO . ARE YOU ABUSED, NEGLECTED, OR IN AN UNSAFE ENVIRONMENT? NO . ENDOCRINOLOGY: ARE YOU DIABETIC? NO . OTHER: DO YOU NEED ANY PRESCRIPTIONS? YES . IF YES, PLEASE LIST: VICODIN . ANY NEW PROBLEMS WITH YOUR MEDICATIONS? NO . WHEN DID YOU LAST EAT? ____ . WHEN DID YOU LAST DRINK? ____ . WHAT DID YOU LAST DRINK? ____ . NAME OF PERSON DRIVING YOU HOME? ____ . DO YOU HAVE ANY OTHER QUESTIONS OR CONCERNS NO . VITAL SIGNS WT 154 LBS, HT 61 IN, BMI 29.09 INDEX, BP 128/85 MM HG, HR 88 /MIN, RR 16 /MIN, TEMP 97.9 F, OXYGEN SAT % 98%, REVIEWED BY: NL. EXAMINATION GENERAL EXAMINATION: PSYCHALERT , ORIENTED X 3, APPEARS UNCOMFORTABLE. LUNGS:LUNG SOUNDS ARE CLEAR. HEART:HEART RATE REGULAR, RAPID. MUSCULOSKELETAL:POINT TENDERNESS OVER LUMBER SPINOUS PROCESSES AND RIGHT GREATER THAN LEFT PARAVERTEBRAL. POINT TENDERNESS OVER C7 PROMINENCE AND OVER THE CERVICAL SPINOUS PROCESSES. SLOW TO RISE TO STANDIING POSITION. GAIT ANTALGIC.TRIGGER POINTS AND TIGHT FIBROUS BANDS OVER RIGHT > LEFT TRAPEZIUS MUSCLES , RESTRICTION OF ROM IN THIS AREA. POINT TENDERNESS OVER LUMBAR SPINOUS PROCESSES AND ACROSS LUMBOSACRAL AXIS, RIGHT SIDE GREATER THAN LEFT, WITH PARTICULAR TENDERNESS OVER RIGHT TROCANTER. ASSESSMENTS INTERVERTEBRAL DISC DISORDER WITH RADICULOPATHY OF LUMBAR REGION - M51.16 (PRIMARY) OTHER MIGRAINE WITHOUT STATUS MIGRAINOSUS, NOT INTRACTABLE - G43.809 PAIN IN UNSPECIFIED JOINT - M25.50 FIBROMYALGIA - M79.7 CHRONIC PRESCRIPTION OPIATE USE - Z79.899 TREATMENT INTERVERTEBRAL DISC DISORDER WITH RADICULOPATHY OF LUMBAR REGION REFILL NORCO TABLET, 10-325 MG, 1 TABLET, ORALLY, EVERY 4 HRS PRN PAIN MDD=6, 30 DAY(S), 180, REFILLS 0 NOTES: USE TIZANIDINE AND ZOFRAN (ALREADY HAS AT HOME) TAKE 2 FIORICET WHEN ARRIVING AT HOME AND THEN 1 TABLET Q 4-6 HRS UNTIL HEADACHE RESOLVES. GO TO ER IF ANY WEAKNESS/NUMBNESS DEVELOPES IN THE EXTREMITIES. CLINICAL NOTES: ISTOP REGISTRY REVIEWED AND DEMNOSTRATES COMPLLIANCE. (REF # [id number]) BRINGS IN MEDICATIONS WHICH IS APPROPRIATE FOR WHAT WAS DISPENSED. RECENT URINE TOXICOLOGY REVIEWED. NO UNAUTHORIZED MEDICATIONS. NO ILLICIT SUBSTANCES AND PRESCRIBED MEDICATIONS WERE PRESENT. PROCEDURE CODES FA211 ESTABILISHED PATIENT [facility] CHARGE DISPOSITION & COMMUNICATION FOLLOW UP 2 WEEKS (REASON: POST PROCEDURE HEADACHE) ELECTRONICALLY SIGNED BY REINIER PATEL ON 05/03/2017 AT 08:31 PM EST DISCLAIMER : THIS IS A VISIT SUMMARY EXTRACTED FROM THE ECLINICALWORKS CHART. IT IS NOT A COPY OF THE ECLINICALWORKS PROGRESS NOTE. LUCÍA
== END ==
LOC: M PAIN 08:45
PROVIDERS: ATTEND Nurse Practitioner Family
DX: M51.16 Intervertebral disc disorders with radiculopathy, lumbar region (principal); G43.809 Other migraine, not intractable, without status migrainosus; M25.50 Pain in unspecified joint; M79.7 Fibromyalgia; Z79.891 Long term (current) use of opiate analgesic; Z79.899 Other long term (current) drug therapy; Z88.1 Allergy status to other antibiotic agents; Z91.041 Radiographic dye allergy status; Z91.09 Other allergy status, other than to drugs and biological substances; Z91.030 Bee allergy status

== ENCOUNTER → 2017-04-27 | Outpatient (CLI) | payer OTHER ==
--- NOTE | 2017-05-20 01:44 | ECWPNPC ---
PATIENT NAME: ELIZABETH ARCHIBALD : 1965 GENDER: FEMALE VISIT DATE: 04/27/2017 DISCHARGE DATE: 04/27/17 1211 VISIT LOCKED DATE TIME: PHYSICIAN: OMID BALTAZAR RESOURCE: OMID BALTAZAR REASON FOR APPOINTMENT 1. POST PROC LESI HISTORY OF PRESENT ILLNESS HISTORY OF PRESENT ILLNESS: PAIN THE PATIENT DESCRIBES THE PAIN... FALL RISK SCREENING: SCREENING :NO FALLS IN THE PAST YEAR TODAY'S VISIT: NOTES: POST INJECTION MIGRAINE HAS DIMINISHED. HEADACHE RESOLVES IF LAYS DOWN. IS STILL HAVING SEVERE MIGRAINE BUT IT DOES DECREASE. WOULD LIKE TO HAVE CERVICAL FACET BLOCK AGAIN BUT WILL NEED SEDATIOM. STILL WITH MIN IMPROVEMENT S/P LUMBAR EPIDURAL. THE HIPS REMAIN VERY UNCOMFORTABLE AND THIS WAS MUCH IMPROVED WITH PREVIOUS LUMBAR INJECTION. CURRENT MEDICATIONS TAKING NORCO 10-325 MG TABLET 1 TABLET ORALLY EVERY 4 HRS PRN PAIN MDD=6 TAKING CLONAZEPAM 0.5 MG TABLET 1 TABLET ORALLY QHS TAKING CARAFATE 1 GM TABLET 1 TABLET ORALLY FOUR TIMES DAILY TAKING MULTIVITAMINS OTC TABLET 1 TABLET ORALLY DAILY TAKING CYMBALTA 60 MG CAPSULE DELAYED RELEASE PARTICLES 1 CAPSULE ORALLY DAILY TAKING CALCIUM 600 + D 600-400 MG-UNIT TABLET 2 TABLETS ORALLY ONCE A DAY TAKING OMEPRAZOLE 40 MG CAPSULE DELAYED RELEASE 1 CAPSULE ORALLY TWICE A DAY TAKING VITAMIN D (ERGOCALCIFEROL) 13536 UNIT CAPSULE 1 CAPSULE ORALLY WEEKLY TAKING IRON 325 (65 FE) MG TABLET 1 TABLET ORALLY TID TAKING CLONIDINE HCL 0.1 MG TABLET 1 TABLET ORALLY TID MDD=3 TAKING [id number] 50-325-40 MG TABLET 1 TABLET NEEDED ORALLY FOR HEADACHES EVERY 6 HRS MDD3, NOTES: NOT STARTED YET NOT-TAKING CYCLOBENZAPRINE HCL 10 MG TABLET 1 TABLET NEEDED ORALLY THREE TIMES A DAY NOT-TAKING HYDROXYZINE HCL 50 MG TABLET 1 TABLET NEEDED ORALLY EVERY 6 HRS NOT-TAKING TRAZODONE HCL 50 MG TABLET 1 TABLET AT BEDTIME NEEDED ORALLY ONCE A DAY MEDICATION LIST REVIEWED AND RECONCILED WITH THE PATIENT PAST MEDICAL HISTORY PMS MIGRAINES HTN (-CONTROLLED WITH WEIGHT LOSS) HYPERLIPIDEMIA (-CONTROLLED WITH WEIGHT LOSS) METABOLIC SYNDROME (-CONTROLLED WITH WEIGHT LOSS) DEPRESSION/ ANXIETY DR. ALBERT ENDOMETRIOSIS DR. SCHAFFER FATTY LIVER BREAST CA STAGE 1 05/29 PELVIC FRACTURE FROM - 1982 OSTEOPENIA - DEXA 08/30, FRAX RISK: 4% MAJOR, 0.4% HIP LEFT BREAST CANCER-REMOVED BLEEDING ULCER AT ANASTOMSIS SITE ALLERGIES BACTRIM: HIVES: ALLERGY RED DYE: HIVES: ALLERGY BEE STINGS: ANAPHYLAXIS: ALLERGY LAUNDRY SOAP: RASH: ALLERGY SURGICAL HISTORY GASTRIC BYPASS 03/2006 X2 RUPTURED BLADDER REPAIR HYSTERECTOMY LEFT BREAST LUMPECTOMY LEFT AXILLARY LYMPH NODE STRING REMOVAL SOCIAL HISTORY GENERAL: TOBACCO USE ARE YOU A: NONSMOKER . ALCOHOL SCREENING POINTS2 INTERPRETATIONNEGATIVE PROTESTANT [id number] NONE LEARNING BARRIERS / SPECIAL NEEDS CHANGE FROM LAST VISIT?NO BARRIERS TO LEARNING?NO HEARING IMPAIRED?NO VISION IMPAIRED?NO COGNITIVELY IMPAIRED?NO READINESS TO LEARN?YES LEARNING PREFERENCES?NO LEARNING CAPABILITIES PRESENT?YES EMOTIONAL BARRIERS?NO SPECIAL DEVICES?NO OPERATION RESEARCH ANALYST NEEDED?NO NEW PATIENT PAIN DIARY TODAY'S VISIT NOTES, FROM 0-10, WHAT LEVEL IS YOUR PAIN TODAY? 0. PAIN CLINIC PFS, CLERGY, PUBLIC HEALTH REFERRALS PFS REFERRAL NEEDED?NO CLERGY REFERRAL NEEDED?NO PUBLIC HEALTH REFERRAL NEEDED?NO WAS THE PROVIDER NOTIFIED OF ANY PERTINENT INFO?NO HAS THE PATIENT BEEN EDUCATED REGARDING HIS/HER PLAN OF CARE?YES HAS THE PATIENT BEEN EDUCATED REGARDING PAIN, THE RISK FOR PAIN, THE IMPORTANCE OF EFFECTIVE PAIN MANAGEMENT, AND THE PAIN ASSESSMENT PROCESS?YES ADVANCE DIRECTIVES HEALTH CARE PROXY?NO WOULD YOU LIKE MORE INFORMATION?NO DO YOU HAVE A DNR?NO WOULD YOU LIKE MORE INFORMATION?NO LIVING WILL?NO WOULD YOU LIKE MORE INFORMATION?NO POWER OF PUBLIC WELFARE WORKER?NO WOULD YOU LIKE MORE INFORMATION?NO HOSPITALIZATION/MAJOR DIAGNOSTIC PROCEDURE SURGERIES GI BLEEDING AT SITE OF GASTRIC BYPASS 02/2106 REVIEW OF SYSTEMS REVIEWED BY: PROVIDER: . CONSTITUTIONAL: ANY CHANGE IN YOUR MEDICAL CONDITION? NO . CHILLS NO . FEVER NO . INFECTION: DO YOU HAVE NEW INFECTIONS? NO . DO YOU HAVE HISTORY OF MRSA? NO . MUSCULOSKELETAL: ANY NEW PATTERNS OF PAIN OR NUMBNESS? NO . GASTROENTEROLOGY: GENERAL TO SEE DR FALCON AT [facility] IN MAY . ANY NEW CHANGE IN BOWEL CONTROL? NO . GENITOURINARY: ANY NEW CHANGE IN BLADDER CONTROL? NO . IS THERE A CHANCE YOU COULD BE ? NO . HEMATOLOGY/LYMPH: DO YOU TAKE ANY BLOOD THINNERS? (FOR EXAMPLE- COUMADIN, PLAVIX, AGGRENOX, PLATEL, PRADAXA, OR XARELTO) NO . WHEN WAS YOUR LAST DOSE? DATE: TIME: . NEUROLOGY: HAVE YOU FALLEN IN THE PAST 6 MONTHS? YES . ANY NEW EXTREMITY NUMBNESS OR WEAKNESS? NO . CARDIOLOGY: DO YOU HAVE A PACEMAKER OR DEFIBRILLATOR? NO . RESPIRATORY: HAVE YOU BEEN SICK IN THE PAST WEEK? NO . FEVER NO . FLU LIKE SYMPTOMS? NO . COUGH NO . INTEGUMENTARY: DO YOU HAVE ANY RASHES OR OPEN SORES? NO . ALLERGIC/IMMUNO: ARE YOU ALLERGIC TO SHELLFISH OR IV DYE? NO . ANY NEW ALLERGIES? NO . PSYCHIATRIC: DO YOU HAVE THOUGHTS OF HURTING YOURSELF OR SOMEONE ELSE? NO . ARE YOU ABUSED, NEGLECTED, OR IN AN UNSAFE ENVIRONMENT? NO . ENDOCRINOLOGY: ARE YOU DIABETIC? NO . OTHER: DO YOU NEED ANY PRESCRIPTIONS? YES . IF YES, PLEASE LIST: VICODIN - WANTS TO CHANGE IT), CLONIDINE . ANY NEW PROBLEMS WITH YOUR MEDICATIONS? NO . WHEN DID YOU LAST EAT? ____ . WHEN DID YOU LAST DRINK? ____ . WHAT DID YOU LAST DRINK? ____ . NAME OF PERSON DRIVING YOU HOME? ____ . DO YOU HAVE ANY OTHER QUESTIONS OR CONCERNS NO . VITAL SIGNS WT 164.0 LBS, HT 61 IN, BMI 30.98 INDEX, BP 158/83 MM HG, HR 98 /MIN, RR 16 /MIN, TEMP 97.9 F, OXYGEN SAT % 99%, NA INITIALS TL 1056, REVIEWED BY: LS. ASSESSMENTS INTERVERTEBRAL DISC DISORDER WITH RADICULOPATHY OF LUMBAR REGION - M51.16 (PRIMARY) OTHER MIGRAINE WITHOUT STATUS MIGRAINOSUS, NOT INTRACTABLE - G43.809 OTHER CERVICAL DISC DISPLACEMENT AT C5-C6 LEVEL - M50.222 CERVICAL RADICULOPATHY - M54.12 CHRONIC PRESCRIPTION OPIATE USE - Z79.899 TREATMENT INTERVERTEBRAL DISC DISORDER WITH RADICULOPATHY OF LUMBAR REGION REFILL NORCO TABLET, 7.5-325 MG, 1 TABLET, ORALLY, EVERY 4 HRS PRN PAIN MDD=6, 30 DAY(S), 180, REFILLS 0 REFILL CLONIDINE HCL TABLET, 0.1 MG, 1 TABLET, ORALLY, TID MDD=3, 30 DAY(S), 90, REFILLS 2 INJECTION FACET JOINT/NERVE CERVICAL OMID IZAGUIRRE 04/27/2017 11:51:14 AM > NEEDS SEDATION PREVENTIVE MEDICINE PAIN CLINIC TEACHING: PROCEDURE TEACHING PRE CERVICAL FACET BLOCK WITH IV SEDATION INSTRUCTIONS REVIEWED WITH PT. VERBALIZED UNDERSTANDING.. PROCEDURE CODES FA211 ESTABILISHED PATIENT [facility] CHARGE DISPOSITION & COMMUNICATION FOLLOW UP AFTER INJECTION (REASON: CHECK AUTH FOR CERVIACL FACET BLOCK WITH SEDATION) ELECTRONICALLY SIGNED BY REINIER PATEL ON 05/18/2017 AT 08:30 AM EST DISCLAIMER : THIS IS A VISIT SUMMARY EXTRACTED FROM THE [employer] CHART. IT IS NOT A COPY OF THE [employer] PROGRESS NOTE. LUCÍA
== END ==
LOC: M PAIN 10:30
PROVIDERS: ATTEND Nurse Practitioner Family
DX: G89.29 Other chronic pain (principal); M51.16 Intervertebral disc disorders with radiculopathy, lumbar region; G43.809 Other migraine, not intractable, without status migrainosus; M50.222 Other cervical disc displacement at C5-C6 level; M54.12 Radiculopathy, cervical region; I10 Essential (primary) hypertension; E78.5 Hyperlipidemia, unspecified; K76.0 Fatty (change of) liver, not elsewhere classified; F32.9 Major depressive disorder, single episode, unspecified; E88.81 Metabolic syndrome and other insulin resistance; F41.9 Anxiety disorder, unspecified; Z85.3 Personal history of malignant neoplasm of breast; M85.80 Other specified disorders of bone density and structure, unspecified site; Z79.899 Other long term (current) drug therapy; Z98.84 Bariatric surgery status; Z79.891 Long term (current) use of opiate analgesic; Z91.030 Bee allergy status; Z88.1 Allergy status to other antibiotic agents; Z91.048 Other nonmedicinal substance allergy status

== ENCOUNTER → 2017-05-11 | Outpatient (CLI) | payer OTHER ==
[~2017-05-11] MED LIST changes: +BUPIVACAINE HCL 0.25% 30 ML VIAL As Ordered ONE; +ISOVUE-M 300 61% 15ML VIAL (Q9967) As Ordered ONE; +LIDOCAINE 1% SDV INJ 30 ML VIAL As Ordered ONE; +MIDAZOLAM INJ 2 MG/2 ML VIAL (J2250) As Ordered ONE; +TRIAMCINOLONE ACETONIDE SUSP 40 MG/ML VIAL (J3301) As Ordered ONE; +fentaNYL 100 MCG/2 ML INJECTION (J3010) As Ordered ONE
--- NOTE | 2017-05-11 11:24 | REP ---
Partial cervical spine series: Two views. History: Facet block for pain. 1 minute 48 seconds of fluoroscopy time is reported. Findings: A sequence of two last image hold fluoroscopic spot radiographs of the cervical spine document needle positions and contrast injections associated with cervical facet injection procedure. Signed by Matt Shelton MD 05/11/2017 12:38 P
--- NOTE | 2017-05-18 00:25 | ECWPNPC ---
PATIENT NAME: ELIZABETH ARCHIBALD : 1965 GENDER: FEMALE VISIT DATE: 05/11/2017 DISCHARGE DATE: 05/11/17 1130 VISIT LOCKED DATE TIME: PHYSICIAN: BARBARA DAVIS RESOURCE: BARBARA DAVIS REASON FOR APPOINTMENT 1. CERVICAL FACET HISTORY OF PRESENT ILLNESS HISTORY OF PRESENT ILLNESS: PAIN THE PATIENT DESCRIBES THE PAIN... FALL RISK SCREENING: SCREENING :NO FALLS IN THE PAST YEAR CURRENT MEDICATIONS TAKING CLONAZEPAM 0.5 MG TABLET 1 TABLET ORALLY QHS, NOTES: 05-10-171999 TAKING CARAFATE 1 GM TABLET 1 TABLET ORALLY FOUR TIMES DAILY, NOTES: 05-10-171999 TAKING MULTIVITAMINS OTC TABLET 1 TABLET ORALLY DAILY, NOTES: 05-10-17 AM TAKING CYMBALTA 60 MG CAPSULE DELAYED RELEASE PARTICLES 1 CAPSULE ORALLY DAILY, NOTES: 05-11-17299 TAKING CALCIUM 600 + D 600-400 MG-UNIT TABLET 2 TABLETS ORALLY ONCE A DAY, NOTES: 05-10-17 TAKING OMEPRAZOLE 40 MG CAPSULE DELAYED RELEASE 1 CAPSULE ORALLY TWICE A DAY, NOTES: 05-10-171999 TAKING VITAMIN D (ERGOCALCIFEROL) 58216 UNIT CAPSULE 1 CAPSULE ORALLY WEEKLY, NOTES: WEDNESDAY TAKING IRON 325 (65 FE) MG TABLET 1 TABLET ORALLY TID, NOTES: 05-10-171999 TAKING [id number] 50-325-40 MG TABLET 1 TABLET NEEDED ORALLY FOR HEADACHES EVERY 6 HRS MDD3, NOTES: MONTH AGO TAKING NORCO 7.5-325 MG TABLET 1 TABLET ORALLY EVERY 4 HRS PRN PAIN MDD=6, NOTES: 05-10-172199 TAKING CLONIDINE HCL 0.1 MG TABLET 1 TABLET ORALLY TID MDD=3, NOTES: 05-10-172199 DISCONTINUED CYCLOBENZAPRINE HCL 10 MG TABLET 1 TABLET NEEDED ORALLY THREE TIMES A DAY DISCONTINUED HYDROXYZINE HCL 50 MG TABLET 1 TABLET NEEDED ORALLY EVERY 6 HRS DISCONTINUED TRAZODONE HCL 50 MG TABLET 1 TABLET AT BEDTIME NEEDED ORALLY ONCE A DAY MEDICATION LIST REVIEWED AND RECONCILED WITH THE PATIENT PAST MEDICAL HISTORY PMS MIGRAINES HTN (-CONTROLLED WITH WEIGHT LOSS) HYPERLIPIDEMIA (-CONTROLLED WITH WEIGHT LOSS) METABOLIC SYNDROME (-CONTROLLED WITH WEIGHT LOSS) DEPRESSION/ ANXIETY DR. ALBERT ENDOMETRIOSIS DR. SCHAFFER FATTY LIVER BREAST CA STAGE 1 05/29 PELVIC FRACTURE FROM - 1982 OSTEOPENIA - DEXA 08/30, FRAX RISK: 4% MAJOR, 0.4% HIP LEFT BREAST CANCER-REMOVED BLEEDING ULCER AT ANASTOMSIS SITE ALLERGIES BACTRIM: HIVES: ALLERGY RED DYE: HIVES: ALLERGY BEE STINGS: ANAPHYLAXIS: ALLERGY LAUNDRY SOAP: RASH: ALLERGY SOCIAL HISTORY GENERAL: TOBACCO USE ARE YOU A: NONSMOKER . ALCOHOL SCREENING DID YOU HAVE A DRINK CONTAINING ALCOHOL IN THE PAST YEAR?YES HOW MANY DRINKS DID YOU HAVE ON A TYPICAL DAY WHEN YOU WERE DRINKING IN THE PAST YEAR?3 OR 4 (1 POINT) HOW OFTEN DID YOU HAVE A DRINK CONTAINING ALCOHOL IN THE PAST YEAR?MONTHLY OR LESS (1 POINT) POINTS2 INTERPRETATIONNEGATIVE AMISH [id number] NONE LEARNING BARRIERS / SPECIAL NEEDS CHANGE FROM LAST VISIT?NO BARRIERS TO LEARNING?NO HEARING IMPAIRED?NO VISION IMPAIRED?NO COGNITIVELY IMPAIRED?NO READINESS TO LEARN?YES LEARNING PREFERENCES?NO LEARNING CAPABILITIES PRESENT?YES EMOTIONAL BARRIERS?NO SPECIAL DEVICES?NO SHEETROCK APPLICATOR NEEDED?NO NEW PATIENT PAIN DIARY TODAY'S VISIT NOTES, FROM 0-10, WHAT LEVEL IS YOUR PAIN TODAY? 0. PAIN CLINIC PFS, CLERGY, PUBLIC HEALTH REFERRALS PFS REFERRAL NEEDED?NO CLERGY REFERRAL NEEDED?NO PUBLIC HEALTH REFERRAL NEEDED?NO WAS THE PROVIDER NOTIFIED OF ANY PERTINENT INFO?NO HAS THE PATIENT BEEN EDUCATED REGARDING HIS/HER PLAN OF CARE?YES HAS THE PATIENT BEEN EDUCATED REGARDING PAIN, THE RISK FOR PAIN, THE IMPORTANCE OF EFFECTIVE PAIN MANAGEMENT, AND THE PAIN ASSESSMENT PROCESS?YES ADVANCE DIRECTIVES HEALTH CARE PROXY?NO WOULD YOU LIKE MORE INFORMATION?NO POWER OF [place] BLOWER?NO DO YOU HAVE A DNR?NO WOULD YOU LIKE MORE INFORMATION?NO LIVING WILL?NO WOULD YOU LIKE MORE INFORMATION?NO WOULD YOU LIKE MORE INFORMATION?NO REVIEW OF SYSTEMS REVIEWED BY: PROVIDER: . CONSTITUTIONAL: ANY CHANGE IN YOUR MEDICAL CONDITION? NO . CHILLS NO . FEVER NO . INFECTION: DO YOU HAVE NEW INFECTIONS? NO . DO YOU HAVE HISTORY OF MRSA? NO . MUSCULOSKELETAL: ANY NEW PATTERNS OF PAIN OR NUMBNESS? NO . GASTROENTEROLOGY: ANY NEW CHANGE IN BOWEL CONTROL? NO . GENITOURINARY: ANY NEW CHANGE IN BLADDER CONTROL? NO . IS THERE A CHANCE YOU COULD BE ? NO . HEMATOLOGY/LYMPH: DO YOU TAKE ANY BLOOD THINNERS? (FOR EXAMPLE- COUMADIN, PLAVIX, AGGRENOX, PLATEL, PRADAXA, OR XARELTO) NO . WHEN WAS YOUR LAST DOSE? DATE: TIME: . NEUROLOGY: HAVE YOU FALLEN IN THE PAST 6 MONTHS? NO . ANY NEW EXTREMITY NUMBNESS OR WEAKNESS? NO . CARDIOLOGY: DO YOU HAVE A PACEMAKER OR DEFIBRILLATOR? NO . RESPIRATORY: HAVE YOU BEEN SICK IN THE PAST WEEK? NO . FEVER NO . FLU LIKE SYMPTOMS? NO . COUGH NO . INTEGUMENTARY: DO YOU HAVE ANY RASHES OR OPEN SORES? NO . ALLERGIC/IMMUNO: ARE YOU ALLERGIC TO SHELLFISH OR IV DYE? NO . ANY NEW ALLERGIES? NO . PSYCHIATRIC: DO YOU HAVE THOUGHTS OF HURTING YOURSELF OR SOMEONE ELSE? NO . ARE YOU ABUSED, NEGLECTED, OR IN AN UNSAFE ENVIRONMENT? NO . ENDOCRINOLOGY: ARE YOU DIABETIC? NO . OTHER: DO YOU NEED ANY PRESCRIPTIONS? NO . IF YES, PLEASE LIST: ____ . ANY NEW PROBLEMS WITH YOUR MEDICATIONS? NO . WHEN DID YOU LAST EAT? 05-10-17 7PM . WHEN DID YOU LAST DRINK? 05-11-17 3 AM . WHAT DID YOU LAST DRINK? WATER . NAME OF PERSON DRIVING YOU HOME? EDWAR TONJA . DO YOU HAVE ANY OTHER QUESTIONS OR CONCERNS NO . VITAL SIGNS WT 164.0 LBS, HT 61 IN, BMI 30.98 INDEX, BP 135/72 MM HG, HR 85 /MIN, RR 16 /MIN, TEMP 97.9 F, OXYGEN SAT % 100, NA INITIALS TL 0838, REVIEWED BY: CM. ASSESSMENTS SPONDYLOSIS OF CERVICAL REGION WITHOUT MYELOPATHY OR RADICULOPATHY - M47.812 (PRIMARY) PROCEDURES PN CERVICAL FACET BLOCK LOW BILATERAL CERVICAL PRE PROCEDURE DIAGNOSIS CERVICAL SPONDYLOSIS POST PROCEDURE DIAGNOSIS CERVICAL SPONDYLOSIS PROCEDURE LEFT C2-C3, LEFT C3-C4, AND LEFT C4-C5 CERVICAL FACET BLOCK WITH IV SEDATION SURGEON DR. BARBARA DAVIS DRAW HAND NONE ANESTHESIA LOCAL WITH IV SEDATION PRE PROCEDURE NOTE THE PATIENT HAS HISTORY OF CHRONIC CERVICAL PAIN. I EVALUATE THE PATIENT AND REVIEWED THE CHART. I WENT OVER THE RISKS, ALTERNATIVES, AND BENEFITS ASSOCIATED WITH THIS PROCEDURE. PATIENT WOULD LIKE TO MOVE FORWARD WITH IV SEDATION DUE TO DISCOMFORT, PAIN AND ANXIETY ASSOCIATED WITH THE PROCEDURE. THE PATIENT WOULD LIKE TO PROCEED AND GIVE CONSENT TO PERFORMED THE PROCEDURE. THE PATIENT DENIES UNEXPLAINABLE WEIGHT LOSS, FEVER, CHILLS, OR NEW CHANGES IN URINARY OR BOWEL CONTROL. DESCRIPTION OF PROCEDURE THE PATIENT WAS BROUGHT TO THE PROCEDURE ROOM AND PLACED IN THE PRONE POSITION. THE CERVICOTHORACIC AREA WAS CLEANED WITH CHLORAPREP SOLUTION AND DRAPED ASEPTICALLY. THE PROCEDURE WAS DONE UNDER STERILE CONDITIONS. I CHECKED LATERALITY AND THE LEVEL WHERE THE PROCEDURE WAS GOING TO BE PERFORMED WITH THE PATIENT AND THE SUPPORTING STAFF AT THE MOMENT OF THE TIME OUT IN THE PROCEDURE ROOM. UNDER FLUOROSCOPIC GUIDANCE, TARGET POINT WAS SELECTED AT THE LEFT C2-C3, LEFT C3-C4, AND LEFT C4-C5 CERVICAL FACET JOINT. TARGET POINTS WERE SELECTED AFTER LATERAL ROTATION AND TILT OF THE MAGNIFIER OF THE C-ARM. LIDOCAINE 0.5% WAS USED TO NUMB THE SKIN AND THE SUBCUTANEOUS TISSUE BELOW IT. SPINAL NEEDLES, 22-GAUGE, WERE ADVANCED UNDER FLUOROSCOPIC GUIDANCE AND FOLLOWING PATIENT FEEDBACK UNTIL THE TARGETS WERE TOUCHED. THE POSITION OF THE NEEDLES WAS VERIFIED WITH AP AND LATERAL VIEWS. AFTER PROPER POSITION OF THE NEEDLES WAS ACHIEVED, ISOVUE M DYE 30, 0.1 ML WAS INJECTED SHOWING SPREAD OF THE DYE. THEN A SOLUTION OF 0.9 ML OF BUPIVACAINE 0.125% AND KENALOG 10 MG WAS INJECTED AT EACH SITE. PATIENT RECEIVED VERSED 4 MG AND FENTANYL 200 MCG IV DIVIDED DOSES THERE WAS NO EVIDENCE OF BLOOD, PARESTHESIA OR CEREBROSPINAL FLUID DURING THE PROCEDURE. THE PATIENT WAS SENT TO THE RECOVERY ROOM. THE PATIENT WAS MOVING THE EXTREMITIES AND DOING WELL. THERE WAS NO COMPLICATION DURING THE PROCEDURE. FLUOROSCOPY TIME WAS 1 MINUTE 48 SECONDS. FACE TO FACE TIME WAS 20 MINUTES POST PROCEDURE NOTE THE PATIENT WILL BE SEEN IN A FOLLOW UP IN THE NEXT FEW WEEKS. INSTRUCTIONS WERE GIVEN, QUESTIONS WERE ANSWERED, AND THE PATIENT EXPRESSED UNDERSTANDING AND AGREES WITH THE PLAN. I, SHAHID MILLER, DOCUMENTED THE ABOVE INFORMATION ACTING A SCRIBE FOR DR. DAVIS. I HAVE REVIEWED THE ABOVE DOCUMENT, WRITTEN BY SHAHID MONTIEL AND I VERIFY THAT IT IS ACCURATE DIAGNOSTIC IMAGING [facility] FACET BLOCK (PAIN)[id number] PROCEDURE CODES 05693 INJ PARAVERT F JNT C/T 1 LEV, [place]IF[place]: [place] 28351 INJ PARAVERT F JNT C/T 2 LEV, [place]: [place] 90405 INJ PARAVERT F JNT C/T 3 LEV, MODIFIERS: LT 6045F RADXPS IN END [id number] PXD 34388 MOD SED SAME PHYS/QHP 5/>YRS DISPOSITION & COMMUNICATION FOLLOW UP 3 WEEKS ELECTRONICALLY SIGNED BY BARBARA DAVIS MD ON 05/17/2017 AT 02:18 PM EST DISCLAIMER : THIS IS A VISIT SUMMARY EXTRACTED FROM THE ECLINICALWORKS CHART. IT IS NOT A COPY OF THE ECLINICALWORKS PROGRESS NOTE. LUCÍA
== END ==
LOC: M PAIN 08:45
PROVIDERS: ATTEND Anesthesiology
DX: G89.29 Other chronic pain (principal); M47.812 Spondylosis without myelopathy or radiculopathy, cervical region; Z79.891 Long term (current) use of opiate analgesic; Z79.899 Other long term (current) drug therapy; Z88.1 Allergy status to other antibiotic agents; Z91.030 Bee allergy status; Z91.09 Other allergy status, other than to drugs and biological substances
CPT/HCPCS: 64490; 64491; 64492; 99152; J2250; J3010; J3301; Q9967

== ENCOUNTER → 2017-06-03 | Outpatient (CLI) | payer OTHER | LOC: M PAIN 10:45 | DX: M47.812 Spondylosis without myelopathy or radiculopathy, cervical region (principal); M51.16 Intervertebral disc disorders with radiculopathy, lumbar region; M50.222 Other cervical disc displacement at C5-C6 level; G43.809 Other migraine, not intractable, without status migrainosus; Z79.891 Long term (current) use of opiate analgesic; Z79.899 Other long term (current) drug therapy; Z88.1 Allergy status to other antibiotic agents; Z91.030 Bee allergy status; Z91.09 Other allergy status, other than to drugs and biological substances; Z85.3 Personal history of malignant neoplasm of breast; Z98.84 Bariatric surgery status | CPT/HCPCS: G0463 ==

== ENCOUNTER → 2017-07-29 | Outpatient (CLI) | payer OTHER | LOC: M PAIN 08:45 | DX: M51.16 Intervertebral disc disorders with radiculopathy, lumbar region (principal); M50.222 Other cervical disc displacement at C5-C6 level; M79.7 Fibromyalgia; G43.909 Migraine, unspecified, not intractable, without status migrainosus; I10 Essential (primary) hypertension; E78.5 Hyperlipidemia, unspecified; E88.81 Metabolic syndrome and other insulin resistance; F32.9 Major depressive disorder, single episode, unspecified; F41.9 Anxiety disorder, unspecified; K76.0 Fatty (change of) liver, not elsewhere classified; Z79.891 Long term (current) use of opiate analgesic; Z79.899 Other long term (current) drug therapy; Z88.1 Allergy status to other antibiotic agents; Z91.02 Food additives allergy status; Z91.030 Bee allergy status; Z91.048 Other nonmedicinal substance allergy status; Z85.3 Personal history of malignant neoplasm of breast | CPT/HCPCS: G0463 ==

== ENCOUNTER → 2017-08-02 | Outpatient (CLI) | payer OTHER ==
[2017-08-02 14:03] LABS: BASO % 0.6 % (0.0-1.0); EOS # 0.1 10^3/uL (0.0-0.50); EOS % 1.1 % (0.0-3.0); HEMATOCRIT 38.9 % (36.0-47.0); IMMATURE GRANULOCYTE % 0.3 % (0-3.0); LYMPH # 2.2 10^3/uL (1.5-4.5); LYMPH % 36.4 % (24.0-44.0); MEAN CORPUSCULAR HEMOGLOBIN 25.8 pg (27.0-33.0); MEAN CORPUSCULAR HGB CONC 30.8 g/dl (32.0-36.5); MEAN CORPUSCULAR VOLUME 83.5 fl (80.0-96.0); MONO # 0.5 10^3/uL (0.0-0.8); MONO % 7.3 % (0.0-5.0); NEUTROPHILS # 3.3 10^3/uL (1.8-7.7); NEUTROPHILS % 54.3 % (36.0-66.0); PLATELET COUNT, AUTOMATED 373 10^3/uL (150-450); RED BLOOD COUNT 4.66 10^6/uL (4.00-5.40); RED CELL DISTRIBUTION WIDTH 14.8 % (11.5-14.5); WHITE BLOOD COUNT 6.2 10^3/uL (4.0-10.0)
[2017-08-02 14:19] LABS: ALBUMIN 3.9 GM/DL (3.2-5.2); ALBUMIN/GLOBULIN RATIO 1.05 (1.00-1.93); ALKALINE PHOSPHATASE 120 U/L (45-117); ALT/SGPT 16 U/L (12-78); ANION GAP 11 MEQ/L (8-16); AST/SGOT 10 U/L (7-37); BILIRUBIN,TOTAL 0.2 MG/DL (0.2-1.0); BLOOD UREA NITROGEN 15 MG/DL (7-18); CALCIUM LEVEL 9.2 MG/DL (8.5-10.1); CARBON DIOXIDE LEVEL 22 MEQ/L (21-32); CHLORIDE LEVEL 106 MEQ/L (98-107); CHOLESTEROL LEVEL 372 MG/DL (<200); CHOLESTEROL RISK RATIO 5.812 (<5); CREATININE FOR GFR 0.76 MG/DL (0.55-1.30); GLOMERULAR FILTRATION RATE > 60.0 (>51); GLUCOSE, FASTING 94 MG/DL (70-100); HDL CHOLESTEROL 64 MG/DL (>40); IRON (FE) 39 UG/DL (50-170); NON-HDL-C 308 MG/DL; POTASSIUM SERUM 4.4 MEQ/L (3.5-5.1); SODIUM LEVEL 139 MEQ/L (136-145); TOTAL PROTEIN 7.6 GM/DL (6.4-8.2); TRIGLYCERIDES LEVEL 195 MG/DL (<150)
[2017-08-02 14:26] LABS: TOTAL 25(OH) VITAMIN D 32.1 NG/ML (30.0-100.0)
== END ==
LOC: M WUC 09:15
DX: K28.9 Gastrojejunal ulcer, unspecified as acute or chronic, without hemorrhage or perforation (principal); D50.9 Iron deficiency anemia, unspecified; E55.9 Vitamin D deficiency, unspecified; E78.5 Hyperlipidemia, unspecified

== ENCOUNTER → 2017-08-19 | Outpatient (CLI) | payer OTHER ==
[~2017-08-19] MED LIST changes: -/DULO30CA OR; -AMBI12.52 PO; -BENA25TA10 PO; -BUPIVACAINE HCL 0.25% 30 ML VIAL As Ordered ONE; -BUTR5DIS2 TD; -CALCCHW12 OR; -CALCTAB22 OR; -CALCTAB28 PO; -CARA1TAB2 PO; -CATA0.1T PO; -CLON-412 PO; -CLON0.5T PO; -CLONI1TA PO; -DULO1CAP3 PO; -DULO30CA PO; -EMLA CREAM TOP; -FERR5MLUD PO; -FOLI1TAB4 PO; -HYDR-3713 PO; -HYDR-3719 PO; -HYDRO50TAB PO; -HYOSPOW PO; +ISOVUE-M 300 61% 15ML VIAL (Q9967) As Ordered; -ISOVUE-M 300 61% 15ML VIAL (Q9967) As Ordered ONE; -KLON0.5T PO; +LIDOCAINE 1% SDV INJ 30 ML VIAL As Ordered; -LIDOCAINE 1% SDV INJ 30 ML VIAL As Ordered ONE; -LORA1TAB OR; -LYRI75CA PO; -MIDAZOLAM INJ 2 MG/2 ML VIAL (J2250) As Ordered ONE; -MIRA255PW PO; -MULTCAP PO; -MULTIVIT OR; -NASONEX; -NEUR300C PO; -NORC10TA21 PO; -OMEP20TA7 OR; -OMEP40CA2 PO; -ONDA4TAB6 PO; -OXYC10TA56 OR; -OXYC1TAB23 PO; -RANI15TA PO; -SODIUM CHLORIDE; -SUCR1SUS PO; -SUCR1TA PO; -SUCR1TAB56 PO; -TAMO20TA OR; -TIZA2CAP3 PO; -TIZA4CAP3 PO; -TIZA4TAB3 PO; -TPS CREAM TOP; -TRAM50TA2 OR; -TRAZO50TA PO; -TRIAMCINOLONE ACETONIDE SUSP 40 MG/ML VIAL (J3301) As Ordered ONE; -TYLE325T5 PO; -VENL37.5 OR; -VICO10TA11 PO; -VICO5TAB OR; -VICO5TAB PO; -VIIB10TA PO; -VIT D 2000 OR; -VITA10002 PO; -VITA100067 PO; -VITA1CAP40 PO; -VITMTA PO; -VOLT1GEL EX; -VOLT1GEL TOP; -VOLT1GEL15 TD; -VYBRID PO; -Vitamin D OR; -WELL200T PO; -WELL75TA PO; -ZANA2CAP PO; -[UNRECOGNIZED DRUG - OTHER] OR; -[UNRECOGNIZED DRUG - OTHER] PO; +diazePAM 5 MG TAB As Ordered; +diphenhydrAMINE 25 MG CAP As Ordered; -fentaNYL 100 MCG/2 ML INJECTION (J3010) As Ordered ONE; +methylPREDNISolone SUSP 40 MG/ML (DEPO-medrol) VIAL (J1030) As Ordered; +oxyCODONE 5MG TAB As Ordered; -oxycodone OR
== END | disposition home or self-care (01) ==
LOC: M PAIN 11:15
DX: G89.29 Other chronic pain (principal); M51.16 Intervertebral disc disorders with radiculopathy, lumbar region; G43.909 Migraine, unspecified, not intractable, without status migrainosus; F41.9 Anxiety disorder, unspecified; F33.9 Major depressive disorder, recurrent, unspecified; N80.9 Endometriosis, unspecified; K76.0 Fatty (change of) liver, not elsewhere classified; M85.9 Disorder of bone density and structure, unspecified; Z79.899 Other long term (current) drug therapy; Z88.8 Allergy status to other drugs, medicaments and biological substances; Z91.030 Bee allergy status; Z91.048 Other nonmedicinal substance allergy status
CPT/HCPCS: J1030

== ENCOUNTER → 2017-08-31 | Outpatient (CLI) | payer OTHER ==
[~2017-08-31] MED LIST changes: +GASTROGRAFIN SOLUTION 30ML (Q9963) As Ordered; +GLUCAGON FOR INJ 1 MG VIAL (J1610) As Ordered; +ISOVUE-370 76% 100ML VIAL (Q9967) As Ordered; -ISOVUE-M 300 61% 15ML VIAL (Q9967) As Ordered; -LIDOCAINE 1% SDV INJ 30 ML VIAL As Ordered; +VoLumen 0.1% SUSPENSION 450ML BOTTLE As Ordered; -diazePAM 5 MG TAB As Ordered; -diphenhydrAMINE 25 MG CAP As Ordered; -methylPREDNISolone SUSP 40 MG/ML (DEPO-medrol) VIAL (J1030) As Ordered; -oxyCODONE 5MG TAB As Ordered
== END ==
LOC: M RAD 11:14
DX: K76.89 Other specified diseases of liver (principal); K44.0 Diaphragmatic hernia with obstruction, without gangrene
CPT/HCPCS: Q9967

== ENCOUNTER 2017-09-08 08:09 | Day surgery (SDC) | payer OTHER ==
[~2017-09-08 08:09] MED LIST changes: -GASTROGRAFIN SOLUTION 30ML (Q9963) As Ordered; -GLUCAGON FOR INJ 1 MG VIAL (J1610) As Ordered; -ISOVUE-370 76% 100ML VIAL (Q9967) As Ordered; +LIDOCAINE 2% INJ 100 MG/5 ML SDV (FOR ANES.) As Ordered; +PROPOFOL 200 MG/20 ML VIAL As Ordered; -VoLumen 0.1% SUSPENSION 450ML BOTTLE As Ordered
[2017-09-08] MEDS: NS 1,000 ML IV (08:15)
[2017-09-08] MEDS ORDERED: LIDOCAINE 2% INJ 100 MG/5 ML SDV (FOR ANES.) As Ordered (08:52)
== END 2017-09-08 09:49 | disposition home or self-care (01) ==
LOC: M OPP 08:09
DX: K62.5 Hemorrhage of anus and rectum (principal); R10.32 Left lower quadrant pain; K25.9 Gastric ulcer, unspecified as acute or chronic, without hemorrhage or perforation; K64.1 Second degree hemorrhoids; E78.5 Hyperlipidemia, unspecified; R19.7 Diarrhea, unspecified; Z98.84 Bariatric surgery status; D64.9 Anemia, unspecified; Z87.448 Personal history of other diseases of urinary system; K58.9 Irritable bowel syndrome, unspecified; M79.7 Fibromyalgia; G89.4 Chronic pain syndrome; M19.90 Unspecified osteoarthritis, unspecified site; M54.5 Low back pain; F41.9 Anxiety disorder, unspecified; F32.9 Major depressive disorder, single episode, unspecified; G43.909 Migraine, unspecified, not intractable, without status migrainosus; Z85.3 Personal history of malignant neoplasm of breast; Z92.3 Personal history of irradiation; K21.9 Gastro-esophageal reflux disease without esophagitis; Z88.8 Allergy status to other drugs, medicaments and biological substances; Z88.2 Allergy status to sulfonamides; Z91.030 Bee allergy status; Z91.02 Food additives allergy status; Z79.899 Other long term (current) drug therapy
CPT/HCPCS: 45378

== ENCOUNTER → 2017-09-14 | Outpatient (CLI) | payer OTHER | LOC: M PAIN 11:00 | DX: M51.16 Intervertebral disc disorders with radiculopathy, lumbar region (principal); M50.222 Other cervical disc displacement at C5-C6 level; M79.7 Fibromyalgia; M89.8X5 Other specified disorders of bone, thigh; G43.909 Migraine, unspecified, not intractable, without status migrainosus; I10 Essential (primary) hypertension; E78.5 Hyperlipidemia, unspecified; F43.9 Reaction to severe stress, unspecified; F41.9 Anxiety disorder, unspecified; K76.0 Fatty (change of) liver, not elsewhere classified; Z79.891 Long term (current) use of opiate analgesic; Z79.899 Other long term (current) drug therapy; Z88.1 Allergy status to other antibiotic agents; Z88.8 Allergy status to other drugs, medicaments and biological substances; Z91.030 Bee allergy status; Z91.041 Radiographic dye allergy status; Z91.048 Other nonmedicinal substance allergy status; M85.80 Other specified disorders of bone density and structure, unspecified site; Z90.12 Acquired absence of left breast and nipple; Z86.39 Personal history of other endocrine, nutritional and metabolic disease; Z85.3 Personal history of malignant neoplasm of breast | CPT/HCPCS: G0463 ==

== ENCOUNTER → 2017-11-12 | Outpatient (CLI) | payer OTHER ==
[2017-11-12 12:56] LABS: RHEUMATOID FACTOR QUANT < 10.0 IU/ML (<15.0)
[2017-11-12 13:29] LABS: ERYTHROCYTE SEDIMENTATION RATE 33 mm/hr (0-30)
[2017-11-17 00:06] LABS: ANA (HEP2) Negative (.)
[2017-11-17 00:06] LABS: CYCLIC CITRULLINATED PEPTIDE 3 units (0-19)
== END ==
LOC: M LAB 11:38
DX: M51.16 Intervertebral disc disorders with radiculopathy, lumbar region (principal)

== ENCOUNTER → 2017-11-18 | Outpatient (CLI) | payer OTHER | LOC: M PAIN 10:30 | DX: M51.16 Intervertebral disc disorders with radiculopathy, lumbar region (principal); M25.50 Pain in unspecified joint; M50.222 Other cervical disc displacement at C5-C6 level; M47.27 Other spondylosis with radiculopathy, lumbosacral region; M79.7 Fibromyalgia; G43.909 Migraine, unspecified, not intractable, without status migrainosus; I10 Essential (primary) hypertension; E78.5 Hyperlipidemia, unspecified; F32.9 Major depressive disorder, single episode, unspecified; F41.9 Anxiety disorder, unspecified; E88.81 Metabolic syndrome and other insulin resistance; K76.0 Fatty (change of) liver, not elsewhere classified; Z79.899 Other long term (current) drug therapy; Z88.1 Allergy status to other antibiotic agents; Z88.8 Allergy status to other drugs, medicaments and biological substances; Z91.02 Food additives allergy status; Z91.030 Bee allergy status; Z91.09 Other allergy status, other than to drugs and biological substances; Z85.3 Personal history of malignant neoplasm of breast; Z98.84 Bariatric surgery status | CPT/HCPCS: G0463 ==

== ENCOUNTER → 2017-12-01 | Outpatient (CLI) | payer OTHER ==
[2017-12-01 12:47] LABS: BLOOD UREA NITROGEN 12 MG/DL (7-18)
[2017-12-01 12:47] LABS: CREATININE FOR GFR 0.83 MG/DL (0.55-1.30); GLOMERULAR FILTRATION RATE > 60.0 (>51)
== END ==
LOC: M LAB 11:37
DX: N64.52 Nipple discharge (principal)

== ENCOUNTER → 2017-12-14 | Outpatient (CLI) | payer OTHER | LOC: M PAIN 13:30 | DX: M51.16 Intervertebral disc disorders with radiculopathy, lumbar region (principal); M47.27 Other spondylosis with radiculopathy, lumbosacral region; M79.7 Fibromyalgia; M25.551 Pain in right hip; G43.909 Migraine, unspecified, not intractable, without status migrainosus; I10 Essential (primary) hypertension; E78.5 Hyperlipidemia, unspecified; E88.81 Metabolic syndrome and other insulin resistance; F32.9 Major depressive disorder, single episode, unspecified; F41.9 Anxiety disorder, unspecified; K76.0 Fatty (change of) liver, not elsewhere classified; M85.80 Other specified disorders of bone density and structure, unspecified site; Z79.899 Other long term (current) drug therapy; Z88.1 Allergy status to other antibiotic agents; Z88.8 Allergy status to other drugs, medicaments and biological substances; Z91.02 Food additives allergy status; Z91.030 Bee allergy status; Z91.09 Other allergy status, other than to drugs and biological substances; Z85.3 Personal history of malignant neoplasm of breast; Z98.84 Bariatric surgery status | CPT/HCPCS: G0463 ==

== ENCOUNTER → 2017-12-29 | Outpatient (CLI) | payer OTHER ==
[2017-12-29 20:04] LABS: BASO % 0.3 % (0.0-1.0); EOS # 0.1 10^3/uL (0.0-0.50); EOS % 0.8 % (0.0-3.0); HEMATOCRIT 39.3 % (36.0-47.0); HEMOGLOBIN 13.6 g/dl (12.0-15.5); IMMATURE GRANULOCYTE % 0.3 % (0-3.0); LYMPH # 2.2 10^3/uL (1.5-4.5); LYMPH % 36.6 % (24.0-44.0); MEAN CORPUSCULAR HEMOGLOBIN 28.3 pg (27.0-33.0); MEAN CORPUSCULAR HGB CONC 34.6 g/dl (32.0-36.5); MEAN CORPUSCULAR VOLUME 81.9 fl (80.0-96.0); MONO # 0.4 10^3/uL (0.0-0.8); MONO % 6.6 % (0.0-5.0); NEUTROPHILS # 3.4 10^3/uL (1.8-7.7); NEUTROPHILS % 55.4 % (36.0-66.0); PLATELET COUNT, AUTOMATED 322 10^3/uL (150-450); RED CELL DISTRIBUTION WIDTH 17.1 % (11.5-14.5); WHITE BLOOD COUNT 6.1 10^3/uL (4.0-10.0)
[2017-12-29 20:53] LABS: ANION GAP 8 MEQ/L (8-16); BLOOD UREA NITROGEN 10 MG/DL (7-18); CALCIUM LEVEL 8.8 MG/DL (8.5-10.1); CARBON DIOXIDE LEVEL 27 MEQ/L (21-32); CHLORIDE LEVEL 103 MEQ/L (98-107); CREATININE FOR GFR 0.83 MG/DL (0.55-1.30); GLOMERULAR FILTRATION RATE > 60.0 (>51); GLUCOSE, FASTING 95 MG/DL (70-100); POTASSIUM SERUM 4.1 MEQ/L (3.5-5.1); SODIUM LEVEL 138 MEQ/L (136-145)
== END ==
LOC: M WUC 15:48
DX: M24.151 Other articular cartilage disorders, right hip (principal); M25.551 Pain in right hip
CPT/HCPCS: 80048

== ENCOUNTER → 2017-12-29 | Outpatient (CLI) | payer OTHER ==
[2017-12-29 21:02] LABS: CPK CREATINE PHOSPHOKINASE 71 U/L (26-192)
[2017-12-29 21:02] LABS: FREE T3 2.3 PG/ML (2.2-4.0); FREE T4 0.68 NG/DL (0.76-1.46); RHEUMATOID FACTOR QUANT < 10.0 IU/ML (<15.0); TOTAL PROTEIN 7.2 GM/DL (6.4-8.2)
[2017-12-29 21:24] LABS: ERYTHROCYTE SEDIMENTATION RATE 27 mm/hr (0-30)
[2017-12-29 21:27] LABS: ESTIMATED AVERAGE GLUCOSE 123 MG/DL (60-110); HEMOGLOBIN A1c 5.9 %
[2017-12-29 21:30] LABS: FOLATE 5.9 NG/ML; TOTAL 25(OH) VITAMIN D 10.8 NG/ML (30.0-100.0); VITAMIN B12 LEVEL 790 PG/ML
[2017-12-30 14:02] LABS: ALBUMIN 4.28 GM/DL (3.29-5.55); ALBUMIN % 59.5 % (55.8-66.1); ALPHA-1-GLOBULIN % 4.2 % (2.9-4.9); ALPHA-2-GLOBULINS 0.86 GM/DL (0.42-0.99); ALPHA-2-GLOBULINS % 11.9 % (7.1-11.8); BETA-1-GLOBULINS 0.45 GM/DL (0.28-0.60); BETA-1-GLOBULINS % 6.2 % (4.7-7.2); BETA-2-GLOBULINS 0.37 GM/DL (0.19-0.55); BETA-2-GLOBULINS % 5.1 % (3.2-6.5); GAMMA GLOBULIN % 13.1 % (11.1-18.8); GAMMA GLOBULINS 0.94 GM/DL (0.65-1.58)
[2018-01-08 08:05] LABS: ALDOLASE 5.4 U/L (3.3-10.3); ANTINUCLEAR ANTIBODIES DIRECT Negative (Negative); Lyme Disease IgG/IgM Antibodie <0.91 ISR (0.00-0.90); Lyme Disease IgM Ab Quantitati <0.80 index (0.00-0.79); Methylmalonic Acid 178 nmol/L (0-378); VITAMIN B1 LEVEL WHOLE BLOOD 84.8 nmol/L (66.5-200.0); VITAMIN B6,PYRIDOXAL PHOSPHATE 2.8 ug/L (2.0-32.8); VITAMIN E(ALPHA TOCOPHEROL) 11.1 mg/L (7.0-25.1); VITAMIN E(GAMMA TOCOPHEROL) 2.2 mg/L (0.5-5.5)
== END ==
LOC: M WUC 15:57
DX: E11.9 Type 2 diabetes mellitus without complications (principal); Z11.9 Encounter for screening for infectious and parasitic diseases, unspecified
CPT/HCPCS: 82550

== ENCOUNTER 2018-02-02 10:27 | Emergency (ER) | payer OTHER ==
[2018-02-02] MEDS: ONDANSETRON 4MG/2ML VIAL (J2405) IV (11:26)
[2018-02-02] MEDS: MORPHINE 4 MG/ML 1ML VIAL/SYRINGE (J2270) IV ×2 (11:26→12:23)
[2018-02-02] MEDS: NS 1,000 ML IV (11:26)
[2018-02-02 11:35] LABS: BASO % 0.3 % (0.0-1.0); EOS # 0.2 10^3/uL (0.0-0.50); HEMATOCRIT 40.3 % (36.0-47.0); HEMOGLOBIN 13.9 g/dl (12.0-15.5); IMMATURE GRANULOCYTE % 0.3 % (0-3.0); LYMPH # 2.4 10^3/uL (1.5-4.5); LYMPH % 42.1 % (24.0-44.0); MEAN CORPUSCULAR HGB CONC 34.5 g/dl (32.0-36.5); MONO # 0.5 10^3/uL (0.0-0.8); MONO % 8.9 % (0.0-5.0); NEUTROPHILS # 2.6 10^3/uL (1.8-7.7); NEUTROPHILS % 45.4 % (36.0-66.0); PLATELET COUNT, AUTOMATED 322 10^3/uL (150-450); RED CELL DISTRIBUTION WIDTH 14.9 % (11.5-14.5); WHITE BLOOD COUNT 5.7 10^3/uL (4.0-10.0)
[2018-02-02 11:41] LABS: ALBUMIN 3.4 GM/DL (3.2-5.2); ALBUMIN/GLOBULIN RATIO 0.79 (1.00-1.93); ALKALINE PHOSPHATASE 156 U/L (45-117); ALT/SGPT 25 U/L (12-78); ANION GAP 10 MEQ/L (8-16); AST/SGOT 21 U/L (7-37); BILIRUBIN,DIRECT < 0.1 MG/DL (0.0-0.2); BILIRUBIN,TOTAL 0.2 MG/DL (0.2-1.0); BLOOD UREA NITROGEN 9 MG/DL (7-18); CARBON DIOXIDE LEVEL 31 MEQ/L (21-32); CHLORIDE LEVEL 97 MEQ/L (98-107); CREATININE FOR GFR 1.24 MG/DL (0.55-1.30); GLUCOSE, FASTING 149 MG/DL (70-100); LIPASE 131 U/L (73-393); SODIUM LEVEL 138 MEQ/L (136-145); TOTAL PROTEIN 7.7 GM/DL (6.4-8.2)
[2018-02-02] MEDS: GASTROGRAFIN SOLUTION 30ML PO ×2 (11:50)
[2018-02-02 12:00] LABS: LACTIC ACID SEPSIS PROTOCOL 1.8 MMOL/L (0.4-2.0)
[2018-02-02] MEDS: KCL 10MEQ/100ML SWI (KRUN) 10 MEQ in APPROPRIATE DILUENT 1 EA IV (12:23)
[2018-02-02] MEDS ORDERED: ISOVUE-370 76% 100ML VIAL (Q9967) As Ordered (13:16)
[2018-02-02] MEDS: POTASSIUM CHLORIDE 10 MEQ SR TABLET PO (14:13)
== END 2018-02-02 14:17 | disposition home or self-care (01) ==
LOC: M ED 10:27
DX: L02.216 Cutaneous abscess of umbilicus (principal); L03.316 Cellulitis of umbilicus; I10 Essential (primary) hypertension; M79.7 Fibromyalgia; G89.29 Other chronic pain; F32.9 Major depressive disorder, single episode, unspecified; Z98.84 Bariatric surgery status; K57.30 Diverticulosis of large intestine without perforation or abscess without bleeding; K76.89 Other specified diseases of liver; Z79.899 Other long term (current) drug therapy; Z88.0 Allergy status to penicillin; Z88.8 Allergy status to other drugs, medicaments and biological substances; Z88.2 Allergy status to sulfonamides; Z88.5 Allergy status to narcotic agent; Z91.030 Bee allergy status
CPT/HCPCS: J2270

== ENCOUNTER → 2018-02-07 | Outpatient (CLI) | payer OTHER ==
[2018-02-07 14:37] LABS: ALBUMIN 3.9 GM/DL (3.2-5.2); ALBUMIN/GLOBULIN RATIO 1.08 (1.00-1.93); ALKALINE PHOSPHATASE 142 U/L (45-117); ALT/SGPT 28 U/L (12-78); ANION GAP 15 MEQ/L (8-16); AST/SGOT 21 U/L (7-37); BILIRUBIN,TOTAL 0.4 MG/DL (0.2-1.0); BLOOD UREA NITROGEN 12 MG/DL (7-18); CALCIUM LEVEL 9.3 MG/DL (8.5-10.1); CARBON DIOXIDE LEVEL 21 MEQ/L (21-32); CHLORIDE LEVEL 101 MEQ/L (98-107); CHOLESTEROL LEVEL 295 MG/DL (<200); CREATININE FOR GFR 1.15 MG/DL (0.55-1.30); FREE T4 0.78 NG/DL (0.76-1.46); GLOMERULAR FILTRATION RATE 52.3 (>51); GLUCOSE, FASTING 109 MG/DL (70-100); HDL CHOLESTEROL 50 MG/DL (>40); LDL CHOLESTEROL 194.6 MG/DL (<100); NON-HDL-C 245 MG/DL; POTASSIUM SERUM 4.1 MEQ/L (3.5-5.1); SODIUM LEVEL 137 MEQ/L (136-145); TOTAL PROTEIN 7.5 GM/DL (6.4-8.2); TRIGLYCERIDES LEVEL 252 MG/DL (<150)
[2018-02-07 15:09] LABS: TOTAL 25(OH) VITAMIN D 27.1 NG/ML (30.0-100.0)
[2018-02-07 21:02] LABS: FREE T3 1.9 PG/ML (2.2-4.0)
== END ==
LOC: M WUC 12:16
DX: E55.9 Vitamin D deficiency, unspecified (principal); R94.6 Abnormal results of thyroid function studies; E78.5 Hyperlipidemia, unspecified
CPT/HCPCS: 84443

== ENCOUNTER → 2018-02-12 | Outpatient (CLI) | payer OTHER ==
[2018-02-12 09:10] LABS: BASO # 0.1 10^3/uL (0.0-0.2); BASO % 0.9 % (0.0-1.0); EOS # 0.1 10^3/uL (0.0-0.50); HEMATOCRIT 43.2 % (36.0-47.0); HEMOGLOBIN 14.8 g/dl (12.0-15.5); IMMATURE GRANULOCYTE % 0.5 % (0-3.0); LYMPH % 36.3 % (24.0-44.0); MEAN CORPUSCULAR HGB CONC 34.3 g/dl (32.0-36.5); MEAN CORPUSCULAR VOLUME 84.5 fl (80.0-96.0); MONO # 0.5 10^3/uL (0.0-0.8); MONO % 8.4 % (0.0-5.0); NEUTROPHILS # 2.9 10^3/uL (1.8-7.7); NEUTROPHILS % 51.9 % (36.0-66.0); PLATELET COUNT, AUTOMATED 402 10^3/uL (150-450); RED BLOOD COUNT 5.11 10^6/uL (4.00-5.40); WHITE BLOOD COUNT 5.6 10^3/uL (4.0-10.0)
[2018-02-12 09:35] LABS: ANION GAP 8 MEQ/L (8-16); BLOOD UREA NITROGEN 8 MG/DL (7-18); CALCIUM LEVEL 8.8 MG/DL (8.5-10.1); CARBON DIOXIDE LEVEL 27 MEQ/L (21-32); CHLORIDE LEVEL 100 MEQ/L (98-107); CREATININE FOR GFR 1.26 MG/DL (0.55-1.30); GLOMERULAR FILTRATION RATE 47.1 (>51); GLUCOSE, FASTING 125 MG/DL (70-100); POTASSIUM SERUM 3.5 MEQ/L (3.5-5.1); SODIUM LEVEL 135 MEQ/L (136-145)
== END ==
LOC: M WUC 08:00
DX: K21.9 Gastro-esophageal reflux disease without esophagitis (principal)
CPT/HCPCS: 80048

== ENCOUNTER → 2018-02-12 | Outpatient (CLI) | payer OTHER | LOC: M LAB 08:48 | DX: K21.9 Gastro-esophageal reflux disease without esophagitis (principal) ==

== ENCOUNTER → 2018-10-03 | Outpatient (CLI) | payer OTHER ==
[~2018-10-03] MED LIST changes: +AMBI12.52 PO; +ATOR80TA59 PO; +BENA25TA10 PO; +BUTR5DIS2 TD; +CALCCHW12 OR; +CALCTAB22 OR; +CALCTAB28 PO; +CARA1TAB2 PO; +CATA0.1T PO; +CLEO300C2 PO; +CLON-412 PO; +CLON0.5T8 PO; +CLONI1TA PO; +CYCL10TA PO; +CYMB1CAP5 OR; +CYMB60CA3 PO; +DRIS50003 PO; +DULO1CAP3 PO; +DULO30CA9 PO; +EMLA CREAM TOP; +FERR325T3 PO; +FERR5MLUD PO; +FOLI1TAB11 PO; +HYDR-3713 PO; +HYDR-3719 PO; +HYDR25TAB; +HYDR50CA2; +HYDRO50TAB PO; +HYOSPOW PO; +KLON0.5T PO; -LIDOCAINE 2% INJ 100 MG/5 ML SDV (FOR ANES.) As Ordered; +LORA1TAB OR; +LYRI75CA PO; +MULTCAP PO; +MULTIVIT OR; +NASONEX; +NEUR300C PO; +NORC1TAB5 PO; +OMEP20TA7 OR; +OMEP40CA2 PO; +ONDA4TAB6 PO; +OXYC10TA56 OR; +OXYC1TAB23 PO; +PERC5TAB12 PO; +POLY1POW4 PO; +PROBCAP14 PO; -PROPOFOL 200 MG/20 ML VIAL As Ordered; +RANI15TA PO; +SODIUM CHLORIDE; +SUCR1SUS PO; +SUCR1TA PO; +SUCR1TAB56 PO; +TAMO20TA44 OR; +TIZA2CAP PO; +TIZA4CAP PO; +TIZA4TAB3 PO; +TPS CREAM TOP; +TRAM50TA2 OR; +TRAZO50TA PO; +TYLE325T5 PO; +VENL37.5 OR; +VICO10TA11 PO; +VICO5TAB OR; +VICO5TAB PO; +VICO5TAB17 PO; +VIIB10TA PO; +VIT D 2000 OR; +VITA10002 PO; +VITA100067 PO; +VITA50005 PO; +VITMTA PO; +VOLT1GEL EX; +VOLT1GEL TOP; +VOLT1GEL15 TD; +VYBRID PO; +Vitamin D OR; +WELL200T PO; +WELL75TA PO; +WELLTAB38 PO; +ZANA2CAP PO; +[UNRECOGNIZED DRUG - OTHER] OR; +[UNRECOGNIZED DRUG - OTHER] PO; +oxycodone OR
--- NOTE | 2018-10-03 10:45 | REPMRS ---
Patient History No known family history of cancer. Taking tamoxifen for 1 year. Digital Mammo Screening Bilat: October 03, 2018 - Exam #: [id number] Bilateral CC and MLO view(s) were taken. Technologist: Karina Moe Technologist Prior study comparison: September 30, 2017, digital mammo diagnostic bilateral performed at [facility]. September 18, 2016, bilateral digital mammo screening bilat performed at [facility]. June 07, 2015, digital mammo diagnostic bilateral performed at [facility]. FINDINGS: There are scattered fibroglandular densities. There are stable post treatment changes in the left breast. There has been no change in the appearance of the mammogram from the prior studies. There is a mild amount of scattered fibroglandular density which is fairly symmetric. There is no interval development of dominant mass, architectural distortion, or clustered microcalcification suggestive of malignancy. 3-D tomosynthesis shows no additional findings. Assessment: BI-RADS/ACR category 2 mammogram. Benign Findings. Recommendation Routine screening mammogram of both breasts in 1 year (for women over age 40). This mammogram was interpreted with the aid of an FDA-approved computer-aided dectection system. Electronically Signed By: Greyson Shelton MD 10/03/18 0739
== END ==
LOC: M RAD 09:41
PROVIDERS: ATTEND Physician Assistant
DX: Z12.31 Encounter for screening mammogram for malignant neoplasm of breast (principal)

== ENCOUNTER → 2018-10-12 | Outpatient (CLI) | payer OTHER ==
--- NOTE | 2018-10-18 13:10 | RADONC ---
RADIATION ONCOLOGY FOLLOW-UP NOTE DATE: 10/15/2018 CHART NUMBER: [id number] DIAGNOSIS: Left breast cancer. STAGE: IIB, T2N1M0. ECOG PERFORMANCE STATUS: 0 FOLLOW-UP NOTE: Ms. Bullock is a very pleasant 52-year-old white female with the diagnosis of a stage IIB, T2N1M0 lobular carcinoma of the left breast who is presenting to me today for routine followup visit 9 years post completion of external beam radiation therapy. The patient presents today reporting that she is doing quite well with no complaints at this time related to her radiation therapy or disease. She has no urinary or bowel difficulties. She has no breast or bone pain. REVIEW OF SYSTEMS: The patient's review of systems is noncontributory. She denies nausea, vomiting, fevers, chills, night sweats, diplopia, headaches, anxiety or depression, anorexia, weight loss, visual disturbances, chest pain, urinary or bowel difficulties, bone pain, or neurological problems. PHYSICAL EXAMINATION: The patient is a well-developed, well-nourished white female in no acute distress. HEENT exam is normocephalic, atraumatic. Extraocular movements are intact. There is no palpable cervical, supraclavicular, infraclavicular, axillary, or inguinal lymphadenopathy present. Lungs are clear to auscultation and percussion. Heart has a regular rate and rhythm. Abdomen is benign with no hepatosplenomegaly, masses, or tenderness. Breast examination reveals no masses or discharge bilaterally. Skeletal examination reveals no tenderness to pressure or percussion of the bony skeleton. Extremities reveal no clubbing, cyanosis, or edema. Neurologic exam is grossly intact, as is the remainder of the physical examination. ASSESSMENT: The patient is clinically PAULA at this time. Since she is being followed so closely by her other physicians, and I will be retiring, I am discharging her from my follow-up except on a p.r.n. basis. cc: NICK Cardozo MD Kelvin Lee, MD
== END ==
LOC: M ONCR 13:59
PROVIDERS: ATTEND Radiology Radiation Oncology
DX: Z85.3 Personal history of malignant neoplasm of breast (principal); Z92.3 Personal history of irradiation

== ENCOUNTER → 2018-10-27 | Outpatient (CLI) | payer OTHER ==
[2018-10-27 12:46] LABS: BASO % 0.5 % (0.0-1.0); EOS # 0.1 10^3/uL (0.0-0.50); EOS % 1.2 % (0.0-3.0); HEMATOCRIT 48.8 % (36.0-47.0); HEMOGLOBIN 15.9 g/dl (12.0-15.5); LYMPH # 1.8 10^3/uL (1.5-4.5); LYMPH % 30.8 % (24.0-44.0); MEAN CORPUSCULAR HEMOGLOBIN 30.5 pg (27.0-33.0); MEAN CORPUSCULAR HGB CONC 32.6 g/dl (32.0-36.5); MEAN CORPUSCULAR VOLUME 93.5 fl (80.0-96.0); MONO # 0.3 10^3/uL (0.0-0.8); MONO % 4.9 % (0.0-5.0); NEUTROPHILS # 3.7 10^3/uL (1.8-7.7); NEUTROPHILS % 62.3 % (36.0-66.0); PLATELET COUNT, AUTOMATED 333 10^3/uL (150-450); RED BLOOD COUNT 5.22 10^6/uL (4.00-5.40); WHITE BLOOD COUNT 5.9 10^3/uL (4.0-10.0)
[2018-10-27 13:16] LABS: ALBUMIN 4.3 GM/DL (3.2-5.2); ALT/SGPT 23 U/L (12-78); BILIRUBIN,TOTAL 0.3 MG/DL (0.2-1.0); BLOOD UREA NITROGEN 13 MG/DL (7-18); CALCIUM LEVEL 9.5 MG/DL (8.5-10.1); CARBON DIOXIDE LEVEL 23 MEQ/L (21-32); CHLORIDE LEVEL 102 MEQ/L (98-107); CHOLESTEROL LEVEL 306 MG/DL (<200); CHOLESTEROL RISK RATIO 4.857 (<5); CREATININE FOR GFR 0.96 MG/DL (0.55-1.30); FREE T3 2.5 PG/ML (2.2-4.0); FREE T4 1.03 NG/DL (0.76-1.46); GLOMERULAR FILTRATION RATE > 60.0 (>51); GLUCOSE, FASTING 100 MG/DL (70-100); HDL CHOLESTEROL 63 MG/DL (>40); IRON (FE) 121 UG/DL (50-170); LDL CHOLESTEROL 199 MG/DL (<100); NON-HDL-C 243 MG/DL; POTASSIUM SERUM 4.7 MEQ/L (3.5-5.1); SODIUM LEVEL 135 MEQ/L (136-145); TOTAL PROTEIN 7.9 GM/DL (6.4-8.2); TRIGLYCERIDES LEVEL 221 MG/DL (<150)
== END ==
LOC: M WUC 08:50
PROVIDERS: ATTEND Nurse Practitioner Family
DX: D50.9 Iron deficiency anemia, unspecified (principal); E78.5 Hyperlipidemia, unspecified; K21.9 Gastro-esophageal reflux disease without esophagitis; R94.6 Abnormal results of thyroid function studies

== ENCOUNTER → 2018-12-01 | Outpatient (CLI) | payer OTHER ==
[~2018-12-01] MED LIST changes: +TRAZ1TAB10 PO; -TRAZO50TA PO
[2018-12-01 13:42] LABS: BASO % 0.5 % (0.0-1.0); EOS # 0.1 10^3/uL (0.0-0.50); EOS % 0.8 % (0.0-3.0); HEMATOCRIT 44.9 % (36.0-47.0); HEMOGLOBIN 14.8 g/dl (12.0-15.5); LYMPH # 1.6 10^3/uL (1.5-4.5); LYMPH % 25.1 % (24.0-44.0); MEAN CORPUSCULAR HEMOGLOBIN 30.6 pg (27.0-33.0); MEAN CORPUSCULAR VOLUME 92.8 fl (80.0-96.0); MONO # 0.4 10^3/uL (0.0-0.8); MONO % 5.4 % (0.0-5.0); NEUTROPHILS # 4.4 10^3/uL (1.8-7.7); NEUTROPHILS % 67.7 % (36.0-66.0); PLATELET COUNT, AUTOMATED 370 10^3/uL (150-450); RED BLOOD COUNT 4.84 10^6/uL (4.00-5.40); WHITE BLOOD COUNT 6.5 10^3/uL (4.0-10.0)
[2018-12-01 14:05] LABS: BLOOD UREA NITROGEN 8 MG/DL (7-18); CALCIUM LEVEL 8.7 MG/DL (8.5-10.1); CARBON DIOXIDE LEVEL 23 MEQ/L (21-32); CHLORIDE LEVEL 104 MEQ/L (98-107); CREATININE FOR GFR 0.96 MG/DL (0.55-1.30); GLOMERULAR FILTRATION RATE > 60.0 (>51); GLUCOSE, FASTING 125 MG/DL (70-100); POTASSIUM SERUM 4.4 MEQ/L (3.5-5.1); SODIUM LEVEL 136 MEQ/L (136-145)
== END ==
LOC: M WUC 09:39
PROVIDERS: ATTEND Nurse Practitioner Family
DX: K28.9 Gastrojejunal ulcer, unspecified as acute or chronic, without hemorrhage or perforation (principal)

== ENCOUNTER → 2019-03-12 | Outpatient (CLI) | payer OTHER, MEDICARE ==
[~2019-03-12] MED LIST changes: +CYAN100049 PO; -DULO1CAP3 PO; +DULO1CAP6 PO; +HYDR1TAB33 PO; -HYDRO50TAB PO; -VITA10002 PO
[2019-03-12 17:48] LABS: BLOOD UREA NITROGEN 16 MG/DL (7-18); CALCIUM LEVEL 8.8 MG/DL (8.5-10.1); CARBON DIOXIDE LEVEL 22 MEQ/L (21-32); CHLORIDE LEVEL 104 MEQ/L (98-107); CREATININE FOR GFR 0.88 MG/DL (0.55-1.30); GLOMERULAR FILTRATION RATE > 60.0 (>51); GLUCOSE, FASTING 89 MG/DL (70-100); POTASSIUM SERUM 4.3 MEQ/L (3.5-5.1); SODIUM LEVEL 136 MEQ/L (136-145)
== END ==
LOC: M WUC 10:55
PROVIDERS: ATTEND Physician Assistant Surgical
DX: Z96.642 Presence of left artificial hip joint (principal)

== ENCOUNTER → 2019-06-05 | Outpatient (CLI) | payer MEDICARE, OTHER ==
[~2019-06-05] MED LIST changes: +CLON0.5T2 PO; -CLON0.5T8 PO; -OMEP40CA2 PO; +OMEP40CA97 PO
--- NOTE | 2019-06-05 11:01 | REP ---
LEFT HIP, TWO VIEWS: Two views of the left hip performed. There is no acute fracture or dislocation. Total hip prosthesis appears to be in good position. No abnormal lucency is seen at the interface with adjacent bone, particularly along the stem of the prosthesis. IMPRESSION: Total hip prosthesis with no fracture or dislocation. Electronically Signed by Bucky Munguia MD 06/05/2019 04:21 P
== END ==
LOC: M WUC 09:57
PROVIDERS: ATTEND Nurse Practitioner Family
DX: M25.552 Pain in left hip (principal)

== ENCOUNTER → 2019-10-11 | Outpatient (CLI) | payer MEDICARE, OTHER ==
[~2019-10-11] MED LIST changes: +CYCL-707 PO; -CYCL10TA PO; +SUCR1ORA PO; -SUCR1SUS PO
[2019-10-11 15:41] LABS: BASO % 0.5 % (0.0-1.0); EOS # 0.1 10^3/uL (0.0-0.5); EOS % 1.4 % (0.0-3.0); HEMATOCRIT 44.9 % (36.0-47.0); HEMOGLOBIN 14.7 g/dl (12.0-15.5); LYMPH # 2.3 10^3/uL (1.5-5.0); LYMPH % 40.5 % (24.0-44.0); MEAN CORPUSCULAR HEMOGLOBIN 29.1 pg (27.0-33.0); MEAN CORPUSCULAR HGB CONC 32.7 g/dl (32.0-36.5); MEAN CORPUSCULAR VOLUME 88.9 fl (80.0-96.0); MONO # 0.3 10^3/uL (0.0-0.8); MONO % 6.1 % (0.0-5.0); NEUTROPHILS # 2.9 10^3/uL (1.5-8.5); NEUTROPHILS % 51.1 % (36.0-66.0); PLATELET COUNT, AUTOMATED 276 10^3/uL (150-450); RED BLOOD COUNT 5.05 10^6/uL (4.00-5.40); WHITE BLOOD COUNT 5.6 10^3/uL (4.0-10.0)
[2019-10-11 16:20] LABS: ALBUMIN 3.9 GM/DL (3.2-5.2); ALT/SGPT 13 U/L (12-78); BILIRUBIN,TOTAL 0.2 MG/DL (0.2-1.0); BLOOD UREA NITROGEN 14 MG/DL (7-18); CALCIUM LEVEL 8.9 MG/DL (8.5-10.1); CARBON DIOXIDE LEVEL 19 MEQ/L (21-32); CHLORIDE LEVEL 111 MEQ/L (98-107); CREATININE FOR GFR 0.94 MG/DL (0.55-1.30); FERRITIN 25 NG/ML (8-252); GLOMERULAR FILTRATION RATE > 60.0 (>51); GLUCOSE, FASTING 68 MG/DL (70-100); IRON (FE) 85 UG/DL (50-170); PERCENT SATURATION 26.3 % (13.2-45.0); POTASSIUM SERUM 3.7 MEQ/L (3.5-5.1); SODIUM LEVEL 141 MEQ/L (136-145); TOTAL IRON BINDING CAPACITY 323 UG/DL (250-450)
== END ==
LOC: M LRY 14:44
PROVIDERS: ATTEND Nurse Practitioner Family
DX: E61.1 Iron deficiency (principal); Z85.3 Personal history of malignant neoplasm of breast

== ENCOUNTER → 2019-10-11 | Outpatient (CLI) | payer MEDICARE, OTHER ==
--- NOTE | 2019-10-11 14:02 | REPMRS ---
Patient History The patient states she had a clinical breast exam in September 2018. Patient is postmenopausal and has history of breast cancer at age 44. No known family history of cancer. Took tamoxifen for 1 year. 3D TOMOSYNTHESIS WAS PERFORMED. VOLPARA BREAST DENSITY B. Diagnostic Bilateral Mammo: October 11, 2019 - Exam #: [id number] Bilateral CC and MLO view(s) were taken. Technologist: Karina Moe, Technologist Prior study comparison: October 03, 2018, bilateral digital mammo screening bilat, performed at . September 30, 2017, digital mammo diagnostic bilateral, performed at . FINDINGS: The breast tissue is heterogeneously dense. This may lower the sensitivity of mammography. There has been no change in the appearance of the mammogram from the prior studies. There is a moderate amount of residual fibroglandular tissue which is fairly symmetric. There is no interval development of dominant mass, areas of architectural distortion, or clustered microcalcification typical of malignancy. Large coarse benign appearing calcifications are present. No significant changes when compared with prior studies. Assessment: BI-RADS/ACR category 1 mammogram. Negative Mammogram. Recommendation Routine screening mammogram in 1 year (for women over age 40). This mammogram was interpreted with the aid of an FDA-approved computer-aided dectection system. Electronically Signed By: Bucky Munguia MD 10/11/19 [id number]
--- NOTE | 2019-10-11 16:00 | REP ---
ULTRASOUND RIGHT AXILLA: Real-time sonographic evaluation of right axilla performed. No significantly enlarged lymph nodes are seen. No cystic or solid mass is seen. There appear to be two normal-sized lymph nodes with echogenic fatty riya. These measure 1.2 x 0.6 x 0.4 cm and 9 x 7 x 5 mm. IMPRESSION: No mass or significant adenopathy right axilla.
--- NOTE | 2019-10-11 16:03 | REP ---
ULTRASOUND SOFT TISSUES NECK: Real-time sonographic evaluation of soft tissues neck performed bilaterally. I see no cystic or solid mass. No significant adenopathy is seen bilaterally. IMPRESSION: No sonographic evidence of mass or adenopathy in the neck bilaterally.
== END ==
LOC: M WHC 12:52
PROVIDERS: ATTEND Nurse Practitioner Family
DX: N63.10 Unspecified lump in the right breast, unspecified quadrant (principal); R59.0 Localized enlarged lymph nodes; N64.4 Mastodynia; Z85.3 Personal history of malignant neoplasm of breast; Z78.0 Asymptomatic menopausal state; E61.1 Iron deficiency
CPT/HCPCS: 76536; 76882; 77066; 80053; 82728; 83550; 85025; G0279

== ENCOUNTER → 2019-12-05 | Outpatient (CLI) | payer MEDICARE, OTHER ==
[2019-12-05 13:49] LABS: HEMATOCRIT 42.5 % (36.0-47.0); HEMOGLOBIN 13.9 g/dl (12.0-15.5); MEAN CORPUSCULAR HEMOGLOBIN 29.4 pg (27.0-33.0); MEAN CORPUSCULAR HGB CONC 32.7 g/dl (32.0-36.5); MEAN CORPUSCULAR VOLUME 89.9 fl (80.0-96.0); PLATELET COUNT, AUTOMATED 247 10^3/uL (150-450); RED BLOOD COUNT 4.73 10^6/uL (4.00-5.40); WHITE BLOOD COUNT 5.5 10^3/uL (4.0-10.0)
[2019-12-05 14:14] LABS: BLOOD UREA NITROGEN 8 MG/DL (7-18); CARBON DIOXIDE LEVEL 25 MEQ/L (21-32); CHLORIDE LEVEL 103 MEQ/L (98-107); CREATININE FOR GFR 0.84 MG/DL (0.55-1.30); FERRITIN 32 NG/ML (8-252); FOLATE 9.6 NG/ML (>5.4); GLOMERULAR FILTRATION RATE > 60.0 (>51); GLUCOSE, FASTING 100 MG/DL (70-100); IRON (FE) 83 UG/DL (50-170); PERCENT SATURATION 21.8 % (13.2-45.0); POTASSIUM SERUM 3.4 MEQ/L (3.5-5.1); SODIUM LEVEL 137 MEQ/L (136-145); TOTAL IRON BINDING CAPACITY 381 UG/DL (250-450); VITAMIN B12 LEVEL 1229 PG/ML (247-911)
== END ==
LOC: M WUC 10:10
PROVIDERS: ATTEND Surgery
DX: K28.9 Gastrojejunal ulcer, unspecified as acute or chronic, without hemorrhage or perforation (principal); D50.0 Iron deficiency anemia secondary to blood loss (chronic); Z98.84 Bariatric surgery status

== ENCOUNTER → 2019-12-05 | Outpatient (CLI) | payer MEDICARE, OTHER ==
[2019-12-05 14:22] LABS: FREE T4 1.14 NG/DL (0.76-1.46); THYROID STIMULATING HORMONE 2.23 uIU/ML (0.358-3.740)
[2019-12-06 08:28] LABS: THYROID PEROXIDASE ANTIBODY 44.4 U/ML (<60.0)
== END ==
LOC: M WUC 10:05
PROVIDERS: ATTEND Internal Medicine Endocrinology, Diabetes & Metabolism
DX: R94.6 Abnormal results of thyroid function studies (principal)

== ENCOUNTER → 2019-12-21 | Outpatient (REF) | payer MEDICARE, OTHER ==
[2019-12-22 09:00] LABS: HEPATITIS A ANTIBODY IGM NEGATIVE (NEGATIVE); HEPATITIS B CORE ANTIBODY IGM NEGATIVE (NEGATIVE); HEPATITIS B SURFACE ANTIGEN NEGATIVE (NEGATIVE); HEPATITIS C VIRUS ABY INDEX 0.1 INDEX (<0.8); HIV 1&2 SCREEN CENTAUR NEGATIVE (NEGATIVE)
== END ==
LOC: M LAB REF 16:59
PROVIDERS: ATTEND Nurse Practitioner Adult Health
DX: Z11.59 Encounter for screening for other viral diseases (principal)

== ENCOUNTER → 2019-12-21 | Outpatient (REF) | payer MEDICARE, OTHER | LOC: M LAB REF 15:05 | PROVIDERS: ATTEND Internal Medicine Endocrinology, Diabetes & Metabolism | DX: E04.1 Nontoxic single thyroid nodule (principal) ==

== ENCOUNTER → 2020-01-09 | Outpatient (REF) | payer OTHER, MEDICARE | LOC: M LAB REF 15:31 | PROVIDERS: ATTEND Internal Medicine Endocrinology, Diabetes & Metabolism | DX: E04.1 Nontoxic single thyroid nodule (principal) ==

== ENCOUNTER → 2020-04-17 | Outpatient (REF) | payer OTHER, MEDICARE ==
[2020-04-17 11:32] LABS: IONIZED CALCIUM 4.7 MG/DL (4.5-5.3)
[2020-04-17 14:42] LABS: C REACTIVE PROTEIN QUANTITATIV 0.44 MG/DL (0.00-0.30); PREALBUMIN 37.1 MG/DL (20.0-40.0)
[2020-04-17 14:48] LABS: FOLATE 11.3 NG/ML; TOTAL 25(OH) VITAMIN D 27.5 NG/ML (30.0-100.0)
== END ==
LOC: M LAB REF 11:18
PROVIDERS: ATTEND Nurse Practitioner Adult Health
DX: K28.9 Gastrojejunal ulcer, unspecified as acute or chronic, without hemorrhage or perforation (principal); Z98.84 Bariatric surgery status

== ENCOUNTER → 2020-04-17 | Outpatient (REF) | payer OTHER, MEDICARE | LOC: M LAB REF 14:00 | PROVIDERS: ATTEND Nurse Practitioner Adult Health | DX: Z98.84 Bariatric surgery status (principal); K28.9 Gastrojejunal ulcer, unspecified as acute or chronic, without hemorrhage or perforation ==

== ENCOUNTER → 2020-12-13 | Outpatient (REF) | payer OTHER, MEDICARE ==
[~2020-12-13] MED LIST changes: +HYDR-3490; -HYDR25TAB; +OMEP40CA4 PO; -OMEP40CA97 PO
[2020-12-14 17:06] LABS: HSV TYPE I IgG SPECIFIC <0.91 index (0.00-0.90); HSV TYPE II IgG SPECIFIC <0.91 index (0.00-0.90); Lyme Disease IgG/IgM Antibodie <0.91 ISR (0.00-0.90); Lyme Disease IgM Ab Quantitati <0.80 index (0.00-0.79)
== END ==
LOC: M LAB REF 12:55
PROVIDERS: ATTEND Nurse Practitioner Adult Health
DX: M25.50 Pain in unspecified joint (principal)

== ENCOUNTER → 2021-08-12 | Outpatient (CLI) | payer OTHER, MEDICARE ==
[~2021-08-12] MED LIST changes: -CYMB60CA3 PO; +CYMB60CA4 PO
== END ==
LOC: M WHC 12:52
PROVIDERS: ATTEND Internal Medicine Medical Oncology
DX: C50.512 Malignant neoplasm of lower-outer quadrant of left female breast (principal); Z17.1 Estrogen receptor negative status [ER-]
CPT/HCPCS: 76642; 77066; G0279

== ENCOUNTER → 2022-02-11 | Outpatient (CLI) | payer OTHER, MEDICARE ==
[2022-02-11 18:15] LABS: HEMATOCRIT 38.2 % (36.0-47.0); HEMOGLOBIN 11.5 g/dl (12.0-15.5); MEAN CORPUSCULAR HEMOGLOBIN 23.5 pg (27.0-33.0); MEAN CORPUSCULAR HGB CONC 30.1 g/dl (32.0-36.5); MEAN CORPUSCULAR VOLUME 78.1 fl (80.0-96.0); PLATELET COUNT, AUTOMATED 334 10^3/uL (150-450); RED BLOOD COUNT 4.89 10^6/uL (4.00-5.40); WHITE BLOOD COUNT 5.5 10^3/uL (4.0-10.0)
[2022-02-11 18:45] LABS: ALBUMIN 3.8 GM/DL (3.2-5.2); ALT/SGPT 13 U/L (12-78); BILIRUBIN,TOTAL 0.3 MG/DL (0.2-1.0); BLOOD UREA NITROGEN 17 MG/DL (7-18); CALCIUM LEVEL 9.2 MG/DL (8.5-10.1); CARBON DIOXIDE LEVEL 24 MEQ/L (21-32); CHLORIDE LEVEL 107 MEQ/L (98-107); CHOLESTEROL LEVEL 264 MG/DL (<200); CHOLESTEROL RISK RATIO 4.981 (<5); CREATININE FOR GFR 1.25 MG/DL (0.55-1.30); FERRITIN 5 NG/ML (8-252); GLOMERULAR FILTRATION RATE 46.9 (>51); GLUCOSE, FASTING 121 MG/DL (70-100); HDL CHOLESTEROL 53 MG/DL (>40); IRON (FE) 57 UG/DL (50-170); LDL CHOLESTEROL 177 MG/DL (<100); NON-HDL-C 211 MG/DL; PERCENT SATURATION 11.7 % (13.2-45.0); POTASSIUM SERUM 3.2 MEQ/L (3.5-5.1); SODIUM LEVEL 140 MEQ/L (136-145); TOTAL IRON BINDING CAPACITY 487 UG/DL (250-450); TOTAL PROTEIN 7.5 GM/DL (6.4-8.2); TRIGLYCERIDES LEVEL 168 MG/DL (<150)
[2022-02-11 19:38] LABS: TOTAL 25(OH) VITAMIN D 24.2 NG/ML (30.0-100.0); VITAMIN B12 LEVEL > 2000 PG/ML (247-911)
[2022-02-12 12:28] LABS: FOLATE 5.8 NG/ML (>5.4)
== END ==
LOC: M LAB 17:04
PROVIDERS: ATTEND Physician Assistant
DX: Z98.84 Bariatric surgery status (principal)

== ENCOUNTER → 2022-03-23 | Outpatient (CLI) | payer OTHER, MEDICARE ==
[2022-03-23 13:19] LABS: CALCIUM LEVEL 9.1 MG/DL (8.5-10.1); CREATININE FOR GFR 1.06 MG/DL (0.55-1.30); GLOMERULAR FILTRATION RATE 56.7 (>51); POTASSIUM SERUM 5.2 MEQ/L (3.5-5.1)
== END ==
LOC: M LAB 11:47
PROVIDERS: ATTEND Physician Assistant
DX: Z98.84 Bariatric surgery status (principal)

== ENCOUNTER → 2022-06-03 | Outpatient (REF) | payer OTHER, MEDICARE ==
[2022-06-03 18:31] LABS: TOTAL IRON BINDING CAPACITY 403 UG/DL (250-425)
[2022-06-03 18:34] LABS: IRON (FE) 26 UG/DL (50-170); PERCENT SATURATION 6.5 % (13.2-45.0)
[2022-06-03 18:35] LABS: VITAMIN B12 LEVEL > 2000 PG/ML (211-911)
[2022-06-04 13:14] LABS: TOTAL 25(OH) VITAMIN D 22.7 NG/ML (20.0-100.0)
[2022-06-08 01:07] LABS: VITAMIN B1 LEVEL WHOLE BLOOD 80.5 nmol/L (66.5-200.0); VITAMIN D 1,25 DIHYDROXY 47.8 pg/mL (24.8-81.5)
== END ==
LOC: M LAB REF 16:30
PROVIDERS: ATTEND Nurse Practitioner Adult Health
DX: Z98.84 Bariatric surgery status (principal); D50.9 Iron deficiency anemia, unspecified

== ENCOUNTER 2022-08-16 00:01 | Emergency (ER) | payer OTHER, MEDICARE ==
[~2022-08-16] VITALS: Ht 157.5 cm; Wt 55.4 kg
[2022-08-16 00:03] VITALS: BP 160/93
== END 2022-08-16 04:08 | disposition left against medical advice (07) ==
LOC: M ED 00:01
DX: R51.9 Headache, unspecified (principal); E78.5 Hyperlipidemia, unspecified; F32.A Depression, unspecified; K21.9 Gastro-esophageal reflux disease without esophagitis; F17.200 Nicotine dependence, unspecified, uncomplicated; Z88.2 Allergy status to sulfonamides; Z88.6 Allergy status to analgesic agent; Z88.8 Allergy status to other drugs, medicaments and biological substances; Z91.030 Bee allergy status; Z79.02 Long term (current) use of antithrombotics/antiplatelets; Z79.899 Other long term (current) drug therapy; Z53.9 Procedure and treatment not carried out, unspecified reason

== ENCOUNTER → 2022-08-19 | Outpatient (CLI) | payer OTHER, MEDICARE ==
[2022-08-19 09:11] LABS: HEMOGLOBIN 12.1 g/dl (12.0-15.5); MEAN CORPUSCULAR HEMOGLOBIN 26.8 pg (27.0-33.0); MEAN CORPUSCULAR VOLUME 86.5 fl (80.0-96.0); PLATELET COUNT, AUTOMATED 364 10^3/uL (150-450); RED BLOOD COUNT 4.51 10^6/uL (4.00-5.40); WHITE BLOOD COUNT 4.9 10^3/uL (4.0-10.0)
[2022-08-19 09:34] LABS: IRON (FE) 32 UG/DL (50-170); PERCENT SATURATION 7.5 % (13.2-45.0); TOTAL IRON BINDING CAPACITY 424 UG/DL (250-425)
[2022-08-19 09:36] LABS: FERRITIN 7.2 NG/ML (7.3-270.7); FREE T4 1.21 NG/DL (0.89-1.76); TOTAL 25(OH) VITAMIN D 26.8 NG/ML (20.0-100.0)
[2022-08-19 09:37] LABS: ALBUMIN 4.2 G/DL (3.2-5.2); ALKALINE PHOSPHATASE 90 U/L (46-116); ALT/SGPT 11 U/L (7.0-40); AST/SGOT 16 U/L (<34); BILIRUBIN,TOTAL 0.2 MG/DL (0.3-1.2); BLOOD UREA NITROGEN 19 MG/DL (9-23); CALCIUM LEVEL 9.6 MG/DL (8.5-10.1); CARBON DIOXIDE LEVEL 25 MMOL/L (20-31); CHLORIDE LEVEL 104 MMOL/L (98-107); CREATININE FOR GFR 0.75 MG/DL (0.55-1.30); GLOMERULAR FILTRATION RATE > 60.0 (>51); GLUCOSE, FASTING 105 MG/DL (60-100); POTASSIUM SERUM 4.6 MMOL/L (3.5-5.1); SODIUM LEVEL 140 MMOL/L (136-145); TOTAL PROTEIN 7.4 G/DL (5.7-8.2); VITAMIN B12 LEVEL > 2000 PG/ML (211-911)
[2022-08-19 19:28] LABS: HEMATOCRIT 38.5 % (36.0-47.0)
[2022-08-21 00:07] LABS: COPPER PLASMA 129 ug/dL (80-158); TRANSFERRIN 362 mg/dL (192-364)
== END ==
LOC: M LAB 07:44
PROVIDERS: ATTEND Internal Medicine Hematology
DX: D50.8 Other iron deficiency anemias (principal); Z98.84 Bariatric surgery status; M79.7 Fibromyalgia

== ENCOUNTER 2022-08-21 09:47 | Outpatient (CLI) | payer OTHER, MEDICARE ==
[~2022-08-21] VITALS: Ht 154.9 cm; Wt 55.3 kg
[~2022-08-21 09:47] MED LIST changes: +ALBUTEROL SULFATE 2.5MG/0.5ML INH NEB SOLN INH PRN; +EPINEPHrine INJ 1 MG/ML 1ML AMP IM PRN; +diphenhydrAMINE 50MG/ML VIAL IV PRN; +methylPREDNISolone 125MG 2ML VIAL IV PRN
[2022-08-21 10:00] VITALS: BP 143/87
[2022-08-21] MEDS ORDERED: FERRIC CARBOXYMALTOSE INJ 750 MG in NS 250 ML (>50kg) IV ONE ×3 (10:30)
[2022-08-21] MEDS ORDERED: methylPREDNISolone 125MG 2ML VIAL IV ONE (10:30)
[2022-08-21] MEDS ORDERED: ACETAMINOPHEN TAB 650MG DOSE (2X325MG) PO ONE (10:30)
[2022-08-21] MEDS ORDERED: NS 1,000 ML IV SCH (10:30)
[2022-08-21] MEDS ORDERED: diphenhydrAMINE 25MG CAP PO ONE (10:30)
[2022-08-21 12:00] VITALS: BP 136/75
== END 2022-08-21 12:00 | disposition home or self-care (01) ==
LOC: M INFU 09:47
PROVIDERS: ATTEND Internal Medicine Hematology
DX: D50.9 Iron deficiency anemia, unspecified (principal); Z88.6 Allergy status to analgesic agent; Z88.2 Allergy status to sulfonamides; Z88.8 Allergy status to other drugs, medicaments and biological substances; Z88.5 Allergy status to narcotic agent
CPT/HCPCS: 96365; 96375; J1439; J2930

== ENCOUNTER → 2022-09-16 | Outpatient (CLI) | payer OTHER, MEDICARE ==
[~2022-09-16] MED LIST changes: -ALBUTEROL SULFATE 2.5MG/0.5ML INH NEB SOLN INH PRN; -EPINEPHrine INJ 1 MG/ML 1ML AMP IM PRN; -diphenhydrAMINE 50MG/ML VIAL IV PRN; -methylPREDNISolone 125MG 2ML VIAL IV PRN
== END ==
LOC: M WHC 07:59
PROVIDERS: ATTEND Nurse Practitioner Adult Health
DX: Z85.3 Personal history of malignant neoplasm of breast (principal)

== ENCOUNTER → 2022-10-07 | Outpatient (REF) | payer OTHER, MEDICARE ==
[2022-10-07 17:37] LABS: PERCENT SATURATION 19.4 % (13.2-45.0)
== END ==
LOC: M LAB REF 16:46
PROVIDERS: ATTEND Nurse Practitioner Adult Health
DX: D50.9 Iron deficiency anemia, unspecified (principal)

== ENCOUNTER → 2022-12-27 | Outpatient (CLI) | payer OTHER, MEDICARE ==
[2022-12-27 15:46] LABS: BASO % 0.6 % (0.0-1.0); EOS # 0.1 10^3/uL (0.0-0.5); EOS % 1.9 % (0.0-3.0); HEMATOCRIT 43.3 % (36.0-47.0); HEMOGLOBIN 14.2 g/dl (12.0-15.5); LYMPH # 2.4 10^3/uL (1.5-5.0); LYMPH % 49.9 % (24.0-44.0); MEAN CORPUSCULAR HEMOGLOBIN 29.4 pg (27.0-33.0); MEAN CORPUSCULAR HGB CONC 32.8 g/dl (32.0-36.5); MEAN CORPUSCULAR VOLUME 89.6 fl (80.0-96.0); MONO # 0.3 10^3/uL (0.0-0.8); MONO % 5.5 % (2.0-8.0); NEUTROPHILS % 41.9 % (36.0-66.0); PLATELET COUNT, AUTOMATED 297 10^3/uL (150-450); RED BLOOD COUNT 4.83 10^6/uL (4.00-5.40); WHITE BLOOD COUNT 4.7 10^3/uL (4.0-10.0)
[2022-12-27 15:52] LABS: ALBUMIN 3.8 G/DL (3.2-5.2); ALKALINE PHOSPHATASE 94 U/L (46-116); ALT/SGPT 26 U/L (7.0-40); AST/SGOT 22 U/L (<34); BILIRUBIN,TOTAL 0.2 MG/DL (0.3-1.2); BLOOD UREA NITROGEN 15 MG/DL (9-23); CALCIUM LEVEL 9.2 MG/DL (8.5-10.1); CARBON DIOXIDE LEVEL 27 MMOL/L (20-31); CHLORIDE LEVEL 105 MMOL/L (98-107); CREATININE FOR GFR 0.98 MG/DL (0.55-1.30); GLOMERULAR FILTRATION RATE > 60.0 (>51); GLUCOSE, FASTING 96 MG/DL (60-100); POTASSIUM SERUM 4.3 MMOL/L (3.5-5.1); SODIUM LEVEL 138 MMOL/L (136-145); TOTAL PROTEIN 6.6 G/DL (5.7-8.2)
[2022-12-27 15:54] LABS: THYROID STIMULATING HORMONE 3.424 uIU/ML (0.55-4.78); TOTAL 25(OH) VITAMIN D 30.6 NG/ML (20.0-100.0)
[2022-12-27 15:55] LABS: FERRITIN 16.1 NG/ML (7.3-270.7); VITAMIN B12 LEVEL 1242 PG/ML (211-911)
== END ==
LOC: M LAB 14:58
PROVIDERS: ATTEND Internal Medicine Hematology
DX: D50.8 Other iron deficiency anemias (principal)

== ENCOUNTER → 2023-01-20 | Outpatient (CLI) | payer OTHER, MEDICARE ==
[2023-01-20 11:49] LABS: HEMATOCRIT 44.2 % (36.0-47.0); HEMOGLOBIN 14.2 g/dl (12.0-15.5); MEAN CORPUSCULAR HEMOGLOBIN 29.6 pg (27.0-33.0); MEAN CORPUSCULAR HGB CONC 32.1 g/dl (32.0-36.5); MEAN CORPUSCULAR VOLUME 92.3 fl (80.0-96.0); PLATELET COUNT, AUTOMATED 253 10^3/uL (150-450); RED BLOOD COUNT 4.79 10^6/uL (4.00-5.40); WHITE BLOOD COUNT 5.1 10^3/uL (4.0-10.0)
== END ==
LOC: M LAB 11:15
PROVIDERS: ATTEND Internal Medicine Hematology
DX: D50.8 Other iron deficiency anemias (principal)

== ENCOUNTER 2023-02-01 13:13 | Outpatient (CLI) | payer OTHER, MEDICARE ==
[~2023-02-01] VITALS: Ht 157.5 cm; Wt 63.2 kg
[~2023-02-01 13:13] MED LIST changes: +ALBUTEROL SULFATE 2.5MG/0.5ML INH NEB SOLN INH PRN; +EPINEPHrine INJ 1 MG/ML 1ML AMP IM PRN; +diphenhydrAMINE 50MG/ML VIAL IV PRN; +methylPREDNISolone 125MG 2ML VIAL IV PRN
[2023-02-01 13:15] VITALS: BP 137/61; O2SAT 98
[2023-02-01] MEDS ORDERED: IRON SUCROSE 200 MG in NS 100 ML OVER 1 HR IV ONE (13:30)
[2023-02-01] MEDS ORDERED: NS 1,000 ML IV SCH (13:30)
[2023-02-01 15:00] VITALS: BP 127/64; O2SAT 98
== END 2023-02-01 15:00 ==
LOC: M INFU 13:13
PROVIDERS: ATTEND Internal Medicine Hematology
DX: D50.9 Iron deficiency anemia, unspecified (principal); Z88.8 Allergy status to other drugs, medicaments and biological substances; Z88.6 Allergy status to analgesic agent; Z88.2 Allergy status to sulfonamides; Z88.5 Allergy status to narcotic agent
CPT/HCPCS: 96365; J1756

== ENCOUNTER 2023-02-11 12:04 | Outpatient (CLI) | payer OTHER, MEDICARE ==
[~2023-02-11] VITALS: Ht 154.9 cm; Wt 62.7 kg
[~2023-02-11 12:04] MED LIST changes: +BUPR-69 PO; +CLON0.5T17 PO; +FENT12DI12 TOP; +IRON SUCROSE 200 MG in NS 100 ML OVER 1 HR IV ONE; +NS 1,000 ML IV SCH; +POTA-141 PO; +ZOLP10TA2 PO
[2023-02-11] MEDS ORDERED: NS 1,000 ML IV SCH (12:10)
[2023-02-11] MEDS ORDERED: IRON SUCROSE 200 MG in NS 100 ML OVER 1 HR IV ONE (12:15)
[2023-02-11 12:23] VITALS: BP 142/76; O2SAT 100
[2023-02-11 13:50] VITALS: BP 147/69; O2SAT 97
[2023-02-15] MEDS ORDERED: FENT1DIS14 TD (10:06)
[2023-02-15] MEDS ORDERED: POTA-141 PO (10:06)
[2023-02-15] MEDS ORDERED: ROPI0.5T33 PO (10:06)
== END 2023-02-11 13:50 ==
LOC: M INFU 12:04
PROVIDERS: ATTEND Internal Medicine Hematology
DX: D50.9 Iron deficiency anemia, unspecified (principal); Z88.6 Allergy status to analgesic agent; Z88.2 Allergy status to sulfonamides; Z88.8 Allergy status to other drugs, medicaments and biological substances; Z88.5 Allergy status to narcotic agent
CPT/HCPCS: 96365; J1756

== ENCOUNTER 2023-02-24 10:17 | Day surgery (SDC) | payer OTHER, MEDICARE ==
[~2023-02-24] VITALS: Ht 157.5 cm; Wt 62.1 kg
[~2023-02-24 10:17] MED LIST changes: -ALBUTEROL SULFATE 2.5MG/0.5ML INH NEB SOLN INH PRN; -EPINEPHrine INJ 1 MG/ML 1ML AMP IM PRN; +FENT1DIS14 TD; -IRON SUCROSE 200 MG in NS 100 ML OVER 1 HR IV ONE; +NS 1,000 ML IV ONE; -NS 1,000 ML IV SCH; +ROPI0.5T33 PO; -diphenhydrAMINE 50MG/ML VIAL IV PRN; -methylPREDNISolone 125MG 2ML VIAL IV PRN
[2023-02-24] MEDS ORDERED: SIMETHICONE 40MG/0.6ML DROPS 30ML As Ordered ONE (11:23)
[2023-02-24] MEDS ORDERED: propofoL 200 MG/20 ML VIAL As Ordered ONE ×2 (11:26→11:30)
[2023-02-24] MEDS ORDERED: LIDOCAINE 2% 100MG/5ML SDV (FOR ANES.) As Ordered ONE (11:26)
[2023-02-24 11:40] VITALS: TEMP 97.4
[2023-02-24 11:55] VITALS: BP 118/64; O2SAT 95
== END 2023-02-24 12:07 | disposition home or self-care (01) ==
LOC: M OPP 10:17
PROVIDERS: ATTEND Internal Medicine Gastroenterology
DX: Z12.11 Encounter for screening for malignant neoplasm of colon (principal); D12.2 Benign neoplasm of ascending colon; K57.30 Diverticulosis of large intestine without perforation or abscess without bleeding; K64.8 Other hemorrhoids; I10 Essential (primary) hypertension; E78.5 Hyperlipidemia, unspecified; K21.9 Gastro-esophageal reflux disease without esophagitis; M19.90 Unspecified osteoarthritis, unspecified site; M79.7 Fibromyalgia; F41.9 Anxiety disorder, unspecified; F32.A Depression, unspecified; G43.909 Migraine, unspecified, not intractable, without status migrainosus; K58.9 Irritable bowel syndrome, unspecified; G89.29 Other chronic pain; Z85.3 Personal history of malignant neoplasm of breast; Z92.21 Personal history of antineoplastic chemotherapy; Z92.3 Personal history of irradiation; Z98.84 Bariatric surgery status; Z96.643 Presence of artificial hip joint, bilateral; Z88.2 Allergy status to sulfonamides; Z88.6 Allergy status to analgesic agent; Z88.8 Allergy status to other drugs, medicaments and biological substances; Z91.030 Bee allergy status; Z79.891 Long term (current) use of opiate analgesic; Z79.899 Other long term (current) drug therapy

== ENCOUNTER 2023-03-01 10:45 | Outpatient (CLI) | payer OTHER, MEDICARE ==
[~2023-03-01] VITALS: Ht 154.9 cm; Wt 62.7 kg
[~2023-03-01 10:45] MED LIST changes: +ALBUTEROL SULFATE 2.5MG/0.5ML INH NEB SOLN INH PRN; +EPINEPHrine INJ 1 MG/ML 1ML AMP IM PRN; -NS 1,000 ML IV ONE; +diphenhydrAMINE 50MG/ML VIAL IV PRN; +methylPREDNISolone 125MG 2ML VIAL IV PRN
[2023-03-01 10:58] VITALS: BP 130/66; O2SAT 100
[2023-03-01] MEDS ORDERED: IRON SUCROSE 200 MG in NS 100 ML OVER 1 HR IV ONE (11:00)
[2023-03-01] MEDS ORDERED: NS 1,000 ML IV SCH (11:00)
[2023-03-01 12:50] VITALS: BP 128/66; O2SAT 97
== END 2023-03-01 12:50 ==
LOC: M INFU 10:45
PROVIDERS: ATTEND Internal Medicine Hematology
DX: D50.9 Iron deficiency anemia, unspecified (principal); Z88.1 Allergy status to other antibiotic agents; Z88.2 Allergy status to sulfonamides; Z88.6 Allergy status to analgesic agent; Z88.8 Allergy status to other drugs, medicaments and biological substances; Z91.030 Bee allergy status
CPT/HCPCS: 96365; J1756

== ENCOUNTER → 2023-05-01 | Outpatient (CLI) | payer OTHER, MEDICARE ==
[~2023-05-01] MED LIST changes: -ALBUTEROL SULFATE 2.5MG/0.5ML INH NEB SOLN INH PRN; -EPINEPHrine INJ 1 MG/ML 1ML AMP IM PRN; -diphenhydrAMINE 50MG/ML VIAL IV PRN; -methylPREDNISolone 125MG 2ML VIAL IV PRN
[2023-05-01 16:53] LABS: BASO % 0.5 % (0.0-1.0); EOS # 0.1 10^3/uL (0.0-0.5); EOS % 1.4 % (0.0-3.0); HEMATOCRIT 45.6 % (36.0-47.0); HEMOGLOBIN 14.8 g/dl (12.0-15.5); LYMPH # 2.9 10^3/uL (1.5-5.0); LYMPH % 35.9 % (24.0-44.0); MEAN CORPUSCULAR HEMOGLOBIN 29.7 pg (27.0-33.0); MEAN CORPUSCULAR HGB CONC 32.5 g/dl (32.0-36.5); MEAN CORPUSCULAR VOLUME 91.4 fl (80.0-96.0); MONO # 0.4 10^3/uL (0.0-0.8); MONO % 5.1 % (2.0-8.0); NEUTROPHILS # 4.5 10^3/uL (1.5-8.5); NEUTROPHILS % 56.7 % (36.0-66.0); PLATELET COUNT, AUTOMATED 318 10^3/uL (150-450); RED BLOOD COUNT 4.99 10^6/uL (4.00-5.40)
== END ==
LOC: M LAB 16:27
PROVIDERS: ATTEND Physician Assistant Medical
DX: M43.6 Torticollis (principal)

== ENCOUNTER → 2023-05-05 | Outpatient (CLI) | payer OTHER, MEDICARE | LOC: M RAD 13:03 | PROVIDERS: ATTEND Physician Assistant Medical | DX: M79.89 Other specified soft tissue disorders (principal) ==

== ENCOUNTER → 2023-05-05 | Outpatient (REF) | payer OTHER, MEDICARE ==
[2023-05-06 23:08] LABS: ANA (HEP2) Negative (.)
== END ==
LOC: M LAB REF 13:07
PROVIDERS: ATTEND Physician Assistant Medical
DX: R00.2 Palpitations (principal); R22.30 Localized swelling, mass and lump, unspecified upper limb

== ENCOUNTER → 2023-06-18 | Outpatient (CLI) | payer OTHER, MEDICARE ==
[2023-06-18 13:43] LABS: HEMATOCRIT 42.2 % (36.0-47.0); HEMOGLOBIN 14.3 g/dl (12.0-15.5); MEAN CORPUSCULAR HEMOGLOBIN 30.1 pg (27.0-33.0); MEAN CORPUSCULAR HGB CONC 33.9 g/dl (32.0-36.5); MEAN CORPUSCULAR VOLUME 88.8 fl (80.0-96.0); PLATELET COUNT, AUTOMATED 393 10^3/uL (150-450); RED BLOOD COUNT 4.75 10^6/uL (4.00-5.40)
[2023-06-18 14:08] LABS: ALBUMIN 4.1 G/DL (3.2-5.2); ALKALINE PHOSPHATASE 106 U/L (46-116); ALT/SGPT 10 U/L (7.0-40); AST/SGOT 11 U/L (<34); BILIRUBIN,TOTAL 0.3 MG/DL (0.3-1.2); BLOOD UREA NITROGEN 13 MG/DL (9-23); CALCIUM LEVEL 9.2 MG/DL (8.3-10.6); CARBON DIOXIDE LEVEL 25 MMOL/L (20-31); CHLORIDE LEVEL 106 MMOL/L (98-107); CHOLESTEROL LEVEL 284 MG/DL (<200); CHOLESTEROL RISK RATIO 5.61 (<5); FERRITIN 140.8 NG/ML (7.3-270.7); FOLATE 13.7 NG/ML (>5.4); FREE T4 1.27 NG/DL (0.89-1.76); GLOMERULAR FILTRATION RATE > 60.0 (>45); GLUCOSE, FASTING 136 MG/DL (74-106); HDL CHOLESTEROL 50.6 MG/DL (>40); NON-HDL-C 233.4 MG/DL; POTASSIUM SERUM 3.7 MMOL/L (3.5-5.1); SODIUM LEVEL 137 MMOL/L (136-145); THYROID STIMULATING HORMONE 1.967 uIU/ML (0.55-4.78); TOTAL 25(OH) VITAMIN D 34.2 NG/ML (20.0-100.0); TOTAL PROTEIN 7.2 G/DL (5.7-8.2); TRIGLYCERIDES LEVEL 167 MG/DL (<150)
[2023-06-18 14:10] LABS: HEMOGLOBIN A1c 5.6 % (4.0-6.0)
[2023-06-18 14:22] LABS: CREATININE, URINE 284.4 MG/DL; MAU/CREAT RATIO 2.1 MCG/MG (0.0-30.0)
[2023-06-18 14:26] LABS: VITAMIN B12 LEVEL > 2000 PG/ML (211-911)
== END ==
LOC: M LAB 12:54
PROVIDERS: ATTEND Internal Medicine Hematology
DX: E61.1 Iron deficiency (principal)

== ENCOUNTER → 2023-07-14 | Outpatient (CLI) | payer OTHER, MEDICARE | LOC: M WUC 12:29 | PROVIDERS: ATTEND Physician Assistant Medical | DX: M25.541 Pain in joints of right hand (principal) ==

== ENCOUNTER → 2023-09-21 | Outpatient (CLI) | payer OTHER, MEDICARE ==
[~2023-09-21] MED LIST changes: +KLON0.5T8 PO
== END ==
LOC: M WHC 13:17
PROVIDERS: ATTEND Physician Assistant Medical
DX: N63.0 Unspecified lump in unspecified breast (principal)

== ENCOUNTER → 2023-10-05 | Outpatient (REF) | payer OTHER, MEDICARE ==
[2023-10-05 14:34] LABS: PERCENT SATURATION 35.7 % (13.2-45.0)
[2023-10-05 14:37] LABS: FERRITIN 76.4 NG/ML (7.3-270.7)
== END ==
LOC: M LAB REF 13:28
PROVIDERS: ATTEND Physician Assistant Medical
DX: D50.9 Iron deficiency anemia, unspecified (principal)

== ENCOUNTER → 2023-10-21 | Outpatient (CLI) | payer OTHER, MEDICARE ==
[~2023-10-21] MED LIST changes: +ISOVUE-370 76% 100ML VIAL As Ordered ONE
== END ==
LOC: M RAD 07:41
PROVIDERS: ATTEND Physician Assistant Medical
DX: D49.89 Neoplasm of unspecified behavior of other specified sites (principal)

== ENCOUNTER → 2023-11-08 | Outpatient (CLI) | payer OTHER, MEDICARE ==
[~2023-11-08] MED LIST changes: -ISOVUE-370 76% 100ML VIAL As Ordered ONE
[2023-11-08 14:25] LABS: BASO % 0.5 % (0.0-1.0); EOS # 0.2 10^3/uL (0.0-0.5); EOS % 1.9 % (0.0-3.0); HEMATOCRIT 39.7 % (36.0-47.0); HEMOGLOBIN 12.7 g/dl (12.0-15.5); LYMPH # 1.9 10^3/uL (1.5-5.0); LYMPH % 21.9 % (24.0-44.0); MEAN CORPUSCULAR HEMOGLOBIN 29.1 pg (27.0-33.0); MEAN CORPUSCULAR VOLUME 90.8 fl (80.0-96.0); MONO # 0.5 10^3/uL (0.0-0.8); MONO % 5.8 % (2.0-8.0); NEUTROPHILS # 6.1 10^3/uL (1.5-8.5); NEUTROPHILS % 69.6 % (36.0-66.0); PLATELET COUNT, AUTOMATED 339 10^3/uL (150-450); RED BLOOD COUNT 4.37 10^6/uL (4.00-5.40); WHITE BLOOD COUNT 8.8 10^3/uL (4.0-10.0)
[2023-11-08 14:34] LABS: HEMOGLOBIN A1c 5.6 % (4.0-6.0)
[2023-11-08 14:51] LABS: ALBUMIN 3.4 G/DL (3.2-5.2); BILIRUBIN,TOTAL 0.2 MG/DL (0.3-1.2); CALCIUM LEVEL 8.9 MG/DL (8.3-10.6); CHOLESTEROL RISK RATIO 5.48 (<5); CREATININE FOR GFR 1.22 MG/DL (0.55-1.30); FERRITIN 108.2 NG/ML (7.3-270.7); FOLATE 4.97 NG/ML (>5.4); GLOMERULAR FILTRATION RATE 47.9 (>45); LDL CHOLESTEROL 179.6 MG/DL (<100); POTASSIUM SERUM 3.7 MMOL/L (3.5-5.1); TOTAL 25(OH) VITAMIN D 47.7 NG/ML (20.0-100.0); TOTAL PROTEIN 6.4 G/DL (5.7-8.2)
== END ==
LOC: M LAB 12:26
PROVIDERS: ATTEND Physician Assistant
DX: E44.0 Moderate protein-calorie malnutrition (principal)

== ENCOUNTER → 2023-11-09 | Outpatient (REF) | payer OTHER, MEDICARE | LOC: M LAB REF 15:14 | PROVIDERS: ATTEND Physician Assistant | DX: E44.0 Moderate protein-calorie malnutrition (principal); Z98.84 Bariatric surgery status ==

== ENCOUNTER → 2023-11-26 | Outpatient (CLI) | payer OTHER, MEDICARE ==
[~2023-11-26] MED LIST changes: +ONDA-282 PO; -ONDA4TAB6 PO
== END ==
LOC: M RAD 09:31
PROVIDERS: ATTEND Nurse Practitioner Adult Health
DX: D49.89 Neoplasm of unspecified behavior of other specified sites (principal); Z85.3 Personal history of malignant neoplasm of breast; R93.7 Abnormal findings on diagnostic imaging of other parts of musculoskeletal system
CPT/HCPCS: 78306; A9503

== ENCOUNTER → 2023-12-09 | Outpatient (CLI) | payer OTHER, MEDICARE ==
[~2023-12-09] MED LIST changes: +PROHANCE 279.3MG/ML 5ML VIAL ONE
== END ==
LOC: M PLAIMG 10:43
DX: C50.919 Malignant neoplasm of unspecified site of unspecified female breast (principal)

== ENCOUNTER → 2023-12-10 | Outpatient (CLI) | payer OTHER, MEDICARE | LOC: M PLAIMG 09:49 | DX: C50.512 Malignant neoplasm of lower-outer quadrant of left female breast (principal); Z17.1 Estrogen receptor negative status [ER-]; R93.7 Abnormal findings on diagnostic imaging of other parts of musculoskeletal system; M51.36 Other intervertebral disc degeneration, lumbar region | CPT/HCPCS: 72157; 72158; A9576 ==

== ENCOUNTER → 2024-02-18 | Outpatient (CLI) | payer OTHER, MEDICARE ==
[~2024-02-18] MED LIST changes: +CYMB1CAP5 PO; +EXEM25TA; +EXEM25TA PO; +FENT100D25 TOP; +FENT75DI29 TD; +IBRA125C PO; +OLAN2.5T25 PO; +ONDA-282; +OXYC-517 PO; +OXYC1CAP2 PO; +OXYC1SOL3 PO; +PALB125T PO; -PROHANCE 279.3MG/ML 5ML VIAL ONE; +ZOLO100T
== END ==
LOC: M ONCR 14:13
PROVIDERS: ATTEND General Practice
DX: C79.51 Secondary malignant neoplasm of bone (principal); C50.912 Malignant neoplasm of unspecified site of left female breast; Z79.811 Long term (current) use of aromatase inhibitors; Z79.899 Other long term (current) drug therapy; Z98.84 Bariatric surgery status; Z90.710 Acquired absence of both cervix and uterus; Z90.722 Acquired absence of ovaries, bilateral; Z90.79 Acquired absence of other genital organ(s); Z80.42 Family history of malignant neoplasm of prostate; Z88.1 Allergy status to other antibiotic agents; Z88.2 Allergy status to sulfonamides; Z88.6 Allergy status to analgesic agent; Z88.8 Allergy status to other drugs, medicaments and biological substances; Z91.030 Bee allergy status; Z92.3 Personal history of irradiation; Z98.890 Other specified postprocedural states

== ENCOUNTER 2024-03-12 12:49 | Emergency (ER) | payer OTHER, MEDICARE ==
[~2024-03-12] VITALS: Ht 157.5 cm; Wt 40.9 kg
[~2024-03-12 12:49] MED LIST changes: -CYMB1CAP5 PO; -FENT75DI29 TD; -OXYC1CAP2 PO; -OXYC1SOL3 PO
[2024-03-12] MEDS: fentaNYL 100 MCG/2 ML INJECTION IV PRN (13:29)
[2024-03-12] MEDS: fentaNYL 100 MCG/HR PATCH TOP ONE (13:30)
[2024-03-12] MEDS: FENTANYL REMOVAL DOCUMENTATION MISC XX SCH (13:31)
[2024-03-12 14:17] LABS: HEMOGLOBIN 12.2 g/dl (12.0-15.5); MEAN CORPUSCULAR HEMOGLOBIN 32.2 pg (27.0-33.0); MEAN CORPUSCULAR HGB CONC 33.9 g/dl (32.0-36.5); PLATELET COUNT, AUTOMATED 342 10^3/uL (150-450); RED BLOOD COUNT 3.79 10^6/uL (4.00-5.40); WHITE BLOOD COUNT 5.7 10^3/uL (4.0-10.0)
[2024-03-12 14:45] LABS: BLOOD UREA NITROGEN 9 MG/DL (9-23); CARBON DIOXIDE LEVEL 26 MMOL/L (20-31); CHLORIDE LEVEL 107 MMOL/L (98-107); CREATININE FOR GFR 0.54 MG/DL (0.55-1.30); GLOMERULAR FILTRATION RATE > 60.0 (>45); GLUCOSE, FASTING 99 MG/DL (74-106); POTASSIUM SERUM 3.7 MMOL/L (3.5-5.1); SODIUM LEVEL 139 MMOL/L (136-145)
[2024-03-12 16:30] VITALS: BP 178/77; TEMP 97.7; O2SAT 100
[2024-03-13] MEDS ORDERED: OXYC1SOL3 PO (16:15)
[2024-03-13] MEDS ORDERED: FENT75DI29 TD (16:15)
[2024-03-13] MEDS ORDERED: CYMB1CAP5 PO (16:23)
[2024-03-13] MEDS ORDERED: OXYC1CAP2 PO (18:31)
== END 2024-03-12 16:34 | disposition home or self-care (01) ==
LOC: EDBD 12:49 → M ED 12:49
DX: C50.919 Malignant neoplasm of unspecified site of unspecified female breast (principal); F11.13 Opioid abuse with withdrawal; K21.9 Gastro-esophageal reflux disease without esophagitis; F41.9 Anxiety disorder, unspecified; Z88.8 Allergy status to other drugs, medicaments and biological substances; Z88.2 Allergy status to sulfonamides; Z91.030 Bee allergy status; Z79.810 Long term (current) use of selective estrogen receptor modulators (SERMs); Z79.899 Other long term (current) drug therapy
CPT/HCPCS: 70450; 80048; 85027; 96374; 99284; J3010

== ENCOUNTER → 2024-03-13 | Outpatient (CLI) | payer OTHER, MEDICARE ==
[~2024-03-13] MED LIST changes: +AMLO1TAB24 PO; +CYMB1CAP5 PO; +FENT75DI29 TD; +MAGICMW SSP; -OLAN2.5T25 PO; +OLAN2.5T53 PO; +OXYC1CAP2 PO; +OXYC1SOL3 PO
== END ==
LOC: M PAL 14:31
PROVIDERS: ATTEND Nurse Practitioner Adult Health
DX: C50.912 Malignant neoplasm of unspecified site of left female breast (principal); G89.3 Neoplasm related pain (acute) (chronic); G89.29 Other chronic pain; M89.9 Disorder of bone, unspecified; R64 Cachexia; G62.9 Polyneuropathy, unspecified; Z88.8 Allergy status to other drugs, medicaments and biological substances; R11.0 Nausea; F41.9 Anxiety disorder, unspecified; F32.A Depression, unspecified; Z51.5 Encounter for palliative care; Z79.811 Long term (current) use of aromatase inhibitors; Z79.891 Long term (current) use of opiate analgesic; Z80.42 Family history of malignant neoplasm of prostate; Z88.1 Allergy status to other antibiotic agents; Z88.2 Allergy status to sulfonamides; Z88.6 Allergy status to analgesic agent; Z91.030 Bee allergy status; Z92.3 Personal history of irradiation; Z98.84 Bariatric surgery status; Z98.51 Tubal ligation status; Z98.890 Other specified postprocedural states

== ENCOUNTER 2024-03-17 08:15 | Outpatient (RCR) | payer OTHER, MEDICARE ==
[~2024-03-17 08:15] MED LIST changes: -AMLO1TAB24 PO; -MAGICMW SSP; +OLAN2.5T25 PO; -OLAN2.5T53 PO
== END 2024-03-20 ==
LOC: M ONCR 08:15
PROVIDERS: ATTEND General Practice
DX: Z51.0 Encounter for antineoplastic radiation therapy (principal); C79.51 Secondary malignant neoplasm of bone

== ENCOUNTER 2024-04-04 10:37 | Outpatient (RCR) | payer OTHER, MEDICARE ==
[~2024-04-04 10:37] MED LIST changes: +AMLO1TAB24 PO; +MAGICMW SSP; -OLAN2.5T25 PO; +OLAN2.5T53 PO
[2024-04-04] MEDS ORDERED: FENT1PAT25 TD (11:40)
[2024-04-04] MEDS ORDERED: OXYC1SOL3 PO (11:40)
[2024-04-17] MEDS ORDERED: FENT1DIS14 TOP (11:14)
[2024-04-17] MEDS ORDERED: OXYC1CAP2 PO (11:15)
[2024-04-24] MEDS ORDERED: FENT1PAT25 TD (13:44)
== END 2024-04-20 ==
LOC: M ONCR 10:37
PROVIDERS: ATTEND General Practice
DX: Z51.0 Encounter for antineoplastic radiation therapy (principal); C79.51 Secondary malignant neoplasm of bone

== ENCOUNTER 2024-04-04 11:47 | Emergency (ER) | payer OTHER, MEDICARE ==
[~2024-04-04] VITALS: Ht 157.5 cm; Wt 41.8 kg
[~2024-04-04 11:47] MED LIST changes: +FENT1PAT25 TD
[2024-04-04] MEDS: MORPHINE 4 MG/ML 1ML VIAL IV ONE (13:23)
[2024-04-04] MEDS: ONDANSETRON 4MG 2ML VIAL IV ONE (14:46)
[2024-04-04 17:58] VITALS: BP 143/90; TEMP 98.8; O2SAT 98
== END 2024-04-04 18:19 | disposition home or self-care (01) ==
LOC: M ED 11:47
DX: S06.0X0A Concussion without loss of consciousness, initial encounter (principal); M54.6 Pain in thoracic spine; Y92.019 Unspecified place in single-family (private) house as the place of occurrence of the external cause; Y93.9 Activity, unspecified; Y99.9 Unspecified external cause status; Z88.2 Allergy status to sulfonamides; Z88.8 Allergy status to other drugs, medicaments and biological substances; Z91.030 Bee allergy status; Z91.018 Allergy to other foods; Z79.810 Long term (current) use of selective estrogen receptor modulators (SERMs); Z79.899 Other long term (current) drug therapy
CPT/HCPCS: 70450; 72125; 72128; 72131; 93041; 94760; 96374; 96375; 99284; J2405

== ENCOUNTER → 2024-04-24 | Outpatient (CLI) | payer OTHER, MEDICARE ==
[~2024-04-24] MED LIST changes: +FENT1DIS14 TOP
== END ==
LOC: M PLARAD 11:16
PROVIDERS: ATTEND Internal Medicine Hematology & Oncology
DX: C50.812 Malignant neoplasm of overlapping sites of left female breast (principal)
CPT/HCPCS: 78815; A9552

== ENCOUNTER → 2024-04-25 | Outpatient (CLI) | payer OTHER, MEDICARE ==
[~2024-04-25] VITALS: Ht 157.5 cm; Wt 40.9 kg
[2024-04-25 10:27] VITALS: BP 166/85; O2SAT 100
== END ==
LOC: M PAL 10:16
PROVIDERS: ATTEND Nurse Practitioner Adult Health
DX: C50.912 Malignant neoplasm of unspecified site of left female breast (principal); C79.51 Secondary malignant neoplasm of bone; G89.3 Neoplasm related pain (acute) (chronic); G89.29 Other chronic pain; G62.9 Polyneuropathy, unspecified; R11.0 Nausea; R63.0 Anorexia; F41.9 Anxiety disorder, unspecified; F32.A Depression, unspecified; Z51.5 Encounter for palliative care; Z66 Do not resuscitate; Z79.622 Long term (current) use of Janus kinase inhibitor; Z79.811 Long term (current) use of aromatase inhibitors; Z79.891 Long term (current) use of opiate analgesic; Z79.899 Other long term (current) drug therapy; Z80.42 Family history of malignant neoplasm of prostate; Z88.1 Allergy status to other antibiotic agents; Z88.2 Allergy status to sulfonamides; Z88.6 Allergy status to analgesic agent; Z88.8 Allergy status to other drugs, medicaments and biological substances; Z91.012 Allergy to eggs; Z91.030 Bee allergy status; Z92.3 Personal history of irradiation; Z98.84 Bariatric surgery status; Z98.51 Tubal ligation status; Z98.890 Other specified postprocedural states; Z90.710 Acquired absence of both cervix and uterus; Z90.722 Acquired absence of ovaries, bilateral; Z90.79 Acquired absence of other genital organ(s); R41.89 Other symptoms and signs involving cognitive functions and awareness; Z63.0 Problems in relationship with spouse or partner

== ENCOUNTER → 2024-05-04 | Outpatient (CLI) | payer OTHER, MEDICARE ==
[~2024-05-04] VITALS: Ht 157.5 cm; Wt 41.0 kg
[~2024-05-04] MED LIST changes: +OXYC100C5 PO; +PROC25SU27 PR
[2024-05-04 08:16] VITALS: BP 138/74; O2SAT 100
== END ==
LOC: M PAL 08:08
PROVIDERS: ATTEND Nurse Practitioner Adult Health
DX: C50.312 Malignant neoplasm of lower-inner quadrant of left female breast (principal); C79.51 Secondary malignant neoplasm of bone; G89.3 Neoplasm related pain (acute) (chronic); G89.29 Other chronic pain; G62.9 Polyneuropathy, unspecified; R11.0 Nausea; R63.0 Anorexia; F41.9 Anxiety disorder, unspecified; F32.A Depression, unspecified; R41.89 Other symptoms and signs involving cognitive functions and awareness; Z51.5 Encounter for palliative care; Z66 Do not resuscitate; Z63.0 Problems in relationship with spouse or partner; Z79.622 Long term (current) use of Janus kinase inhibitor; Z79.811 Long term (current) use of aromatase inhibitors; Z79.891 Long term (current) use of opiate analgesic; Z79.899 Other long term (current) drug therapy; Z80.42 Family history of malignant neoplasm of prostate; Z88.1 Allergy status to other antibiotic agents; Z88.2 Allergy status to sulfonamides; Z88.6 Allergy status to analgesic agent; Z88.8 Allergy status to other drugs, medicaments and biological substances; Z91.02 Food additives allergy status; Z91.030 Bee allergy status; Z92.3 Personal history of irradiation; Z98.84 Bariatric surgery status; Z98.890 Other specified postprocedural states; Z90.710 Acquired absence of both cervix and uterus; Z90.722 Acquired absence of ovaries, bilateral; Z90.79 Acquired absence of other genital organ(s)

== ENCOUNTER → 2024-05-17 | Outpatient (CLI) | payer OTHER, MEDICARE ==
[~2024-05-17] VITALS: Ht 157.5 cm; Wt 41.8 kg
[~2024-05-17] MED LIST changes: +DULO1CAP5; +OXYC10TA12 PO; +ZOLO100T PO
[2024-05-17 09:57] VITALS: BP 134/84; O2SAT 100
== END ==
LOC: M PAL 09:48
PROVIDERS: ATTEND Nurse Practitioner Adult Health
DX: C50.312 Malignant neoplasm of lower-inner quadrant of left female breast (principal); C79.51 Secondary malignant neoplasm of bone; G89.3 Neoplasm related pain (acute) (chronic); G89.29 Other chronic pain; G62.9 Polyneuropathy, unspecified; R11.0 Nausea; R63.0 Anorexia; F41.9 Anxiety disorder, unspecified; F32.A Depression, unspecified; Z51.5 Encounter for palliative care; Z66 Do not resuscitate; Z63.0 Problems in relationship with spouse or partner; Z79.622 Long term (current) use of Janus kinase inhibitor; Z79.811 Long term (current) use of aromatase inhibitors; Z79.891 Long term (current) use of opiate analgesic; Z79.899 Other long term (current) drug therapy; Z80.42 Family history of malignant neoplasm of prostate; Z88.1 Allergy status to other antibiotic agents; Z88.2 Allergy status to sulfonamides; Z88.6 Allergy status to analgesic agent; Z88.8 Allergy status to other drugs, medicaments and biological substances; Z91.02 Food additives allergy status; Z91.030 Bee allergy status; Z98.84 Bariatric surgery status; Z98.890 Other specified postprocedural states; Z90.710 Acquired absence of both cervix and uterus; Z90.722 Acquired absence of ovaries, bilateral; Z90.79 Acquired absence of other genital organ(s)

== ENCOUNTER → 2024-05-30 | Outpatient (CLI) | payer OTHER, MEDICARE ==
[~2024-05-30] VITALS: Ht 157.5 cm; Wt 40.4 kg
[~2024-05-30] MED LIST changes: +HYDR1LIQ SL; +OXCA300S3 SL
[2024-05-30 09:24] VITALS: BP 149/84; O2SAT 100
== END ==
LOC: M PAL 09:01
PROVIDERS: ATTEND Nurse Practitioner Adult Health
DX: C50.312 Malignant neoplasm of lower-inner quadrant of left female breast (principal); C79.51 Secondary malignant neoplasm of bone; G89.3 Neoplasm related pain (acute) (chronic); G89.29 Other chronic pain; R51.9 Headache, unspecified; G62.9 Polyneuropathy, unspecified; R11.0 Nausea; R63.0 Anorexia; F41.8 Other specified anxiety disorders; Z51.5 Encounter for palliative care; Z66 Do not resuscitate; Z79.622 Long term (current) use of Janus kinase inhibitor; Z79.811 Long term (current) use of aromatase inhibitors; Z79.891 Long term (current) use of opiate analgesic; Z79.899 Other long term (current) drug therapy; Z88.1 Allergy status to other antibiotic agents; Z88.2 Allergy status to sulfonamides; Z88.6 Allergy status to analgesic agent; Z88.8 Allergy status to other drugs, medicaments and biological substances; Z80.42 Family history of malignant neoplasm of prostate; Z98.84 Bariatric surgery status; Z90.710 Acquired absence of both cervix and uterus; Z90.722 Acquired absence of ovaries, bilateral; Z90.79 Acquired absence of other genital organ(s); Z91.030 Bee allergy status; Z91.02 Food additives allergy status; Z98.890 Other specified postprocedural states

== ENCOUNTER → 2024-06-06 | Outpatient (CLI) | payer OTHER, MEDICARE ==
[~2024-06-06] MED LIST changes: +PROHANCE 279.3MG/ML 5ML VIAL ONE
== END ==
LOC: M PLAIMG 08:04
PROVIDERS: ATTEND Nurse Practitioner Women's Health
DX: C50.919 Malignant neoplasm of unspecified site of unspecified female breast (principal); R51.9 Headache, unspecified

== ENCOUNTER → 2024-06-19 | Outpatient (CLI) | payer OTHER, MEDICARE ==
[~2024-06-19] MED LIST changes: +HYDR4TAB PO; -PROHANCE 279.3MG/ML 5ML VIAL ONE
== END ==
LOC: M PAL 14:26
PROVIDERS: ATTEND Family Medicine
DX: Z51.5 Encounter for palliative care (principal); C50.919 Malignant neoplasm of unspecified site of unspecified female breast; C79.51 Secondary malignant neoplasm of bone; R52 Pain, unspecified; Z66 Do not resuscitate; Z79.891 Long term (current) use of opiate analgesic; Z79.899 Other long term (current) drug therapy; Z88.1 Allergy status to other antibiotic agents; Z88.2 Allergy status to sulfonamides; Z88.6 Allergy status to analgesic agent; Z88.8 Allergy status to other drugs, medicaments and biological substances; Z91.02 Food additives allergy status; Z92.3 Personal history of irradiation; Z98.84 Bariatric surgery status

== ENCOUNTER → 2024-07-06 | Outpatient (CLI) | payer BC, MEDICARE ==
[~2024-07-06] MED LIST changes: +FENT100D25 EXT
== END ==
LOC: M ONCR 11:32
PROVIDERS: ATTEND General Practice
DX: C79.51 Secondary malignant neoplasm of bone (principal); C50.912 Malignant neoplasm of unspecified site of left female breast; Z92.3 Personal history of irradiation; Z88.1 Allergy status to other antibiotic agents; Z88.2 Allergy status to sulfonamides; Z88.6 Allergy status to analgesic agent; Z88.8 Allergy status to other drugs, medicaments and biological substances; Z91.030 Bee allergy status; Z91.02 Food additives allergy status; Z79.899 Other long term (current) drug therapy; Z79.811 Long term (current) use of aromatase inhibitors; Z96.643 Presence of artificial hip joint, bilateral

== ENCOUNTER → 2024-07-11 | Outpatient (CLI) | payer OTHER, MEDICARE | LOC: M PAL 14:01 | PROVIDERS: ATTEND Family Medicine | DX: Z51.5 Encounter for palliative care (principal); C50.912 Malignant neoplasm of unspecified site of left female breast; C79.51 Secondary malignant neoplasm of bone; F11.20 Opioid dependence, uncomplicated; Z66 Do not resuscitate; Z92.3 Personal history of irradiation; Z79.899 Other long term (current) drug therapy; Z91.030 Bee allergy status; Z88.1 Allergy status to other antibiotic agents; Z88.2 Allergy status to sulfonamides; Z88.6 Allergy status to analgesic agent; Z88.8 Allergy status to other drugs, medicaments and biological substances; Z91.02 Food additives allergy status ==

== ENCOUNTER → 2024-08-07 | Outpatient (CLI) | payer MEDICARE | LOC: M PAL 11:06 | PROVIDERS: ATTEND Family Medicine | DX: C50.912 Malignant neoplasm of unspecified site of left female breast (principal); C79.49 Secondary malignant neoplasm of other parts of nervous system; Z79.891 Long term (current) use of opiate analgesic; Z79.899 Other long term (current) drug therapy; Z91.030 Bee allergy status; Z88.6 Allergy status to analgesic agent; Z88.8 Allergy status to other drugs, medicaments and biological substances; Z88.2 Allergy status to sulfonamides ==

== ENCOUNTER → 2025-04-26 | Outpatient (CLI) | payer BC, MEDICARE ==
[~2025-04-26] VITALS: Ht 157.5 cm; Wt 61.1 kg
[~2025-04-26] MED LIST changes: +CLON1TAB17 PO; +DILA2TAB6 PO; +DILA8TAB5 PO; +FERR300L12 PO; -FERR5MLUD PO; +ONDA-284 PO; +TRAZ-252 PO; +ZOLP10TA11 PO; -ZOLP10TA2 PO
[2025-04-26 10:57] VITALS: BP 142/90; O2SAT 98
== END ==
LOC: M PAL 10:45
PROVIDERS: ATTEND Physician Assistant
DX: Z51.5 Encounter for palliative care (principal); Z66 Do not resuscitate; C50.019 Malignant neoplasm of nipple and areola, unspecified female breast; C79.51 Secondary malignant neoplasm of bone; Z79.891 Long term (current) use of opiate analgesic; Z88.2 Allergy status to sulfonamides; Z88.5 Allergy status to narcotic agent; Z91.030 Bee allergy status; Z88.6 Allergy status to analgesic agent; Z79.899 Other long term (current) drug therapy; Z79.83 Long term (current) use of bisphosphonates

== ENCOUNTER 2025-05-16 09:37 | Emergency (ER) | payer MEDICARE ==
[~2025-05-16] VITALS: Ht 157.5 cm; Wt 57.6 kg
[2025-05-16 10:33] LABS: BASO # 0.0 10^3/uL (0.0-0.2); BASO % 0.2 % (0.0-1.0); EOS # 0.0 10^3/uL (0.0-0.5); EOS % 0.1 % (0.0-3.0); LYMPH # 1.4 10^3/uL (1.5-5.0); LYMPH % 15.1 % (24.0-44.0); MONO # 0.7 10^3/uL (0.0-0.8); MONO % 7.4 % (2.0-8.0); NEUTROPHILS # 7.1 10^3/uL (1.5-8.5); NEUTROPHILS % 76.8 % (36.0-66.0); PLATELET COUNT, AUTOMATED 424 10^3/uL (150-450)
[2025-05-16] MEDS: PANTOPRAZOLE 40MG VIAL IV ONE (10:58)
[2025-05-16] MEDS: ONDANSETRON 4MG/2ML VIAL IV ONE (10:59)
[2025-05-16] MEDS: PANTOPRAZOLE SODIUM 40 MG in DEXTROSE 5% (D5W) ADV/MINI-BAG 50 ML IV SCH (10:59)
[2025-05-16] MEDS: MORPHINE 4 MG/ML 1 ML VIAL IV PRN (10:59)
[2025-05-16] MEDS: NS (Normal Saline) 0.9% 1,000 ML in IV 1 EA IV SCH (11:00)
[2025-05-16 11:01] LABS: ALT/SGPT < 9 U/L (7.0-40); AST/SGOT 24 U/L (<34); CALCIUM LEVEL 9.5 MG/DL (8.3-10.6); CARBON DIOXIDE LEVEL 20 MMOL/L (20-31); CHLORIDE LEVEL 101 MMOL/L (98-107); CREATININE FOR GFR 0.67 MG/DL (0.55-1.30); GLOMERULAR FILTRATION RATE > 90.0 (>45); POTASSIUM SERUM 4.2 MMOL/L (3.5-5.1); SODIUM LEVEL 137 MMOL/L (136-145)
[2025-05-16 11:12] LABS: INR 1.11
[2025-05-16] MEDS ORDERED: ISOVUE-370 76% 100 ML VIAL As Ordered ONE (11:28)
[2025-05-16] MEDS: GASTROGRAFIN SOLUTION 30ML PO SCH (12:24)
[2025-05-16] MEDS ORDERED: MULT-40 PO (12:46)
[2025-05-16] MEDS ORDERED: ZOLO25TA PO (12:46)
[2025-05-16] MEDS ORDERED: POTA20PW PO (12:46)
[2025-05-16] MEDS ORDERED: HOME MED LIST COMPLETE! XX SCH (12:50)
[2025-05-16] MEDS: HYDROMORPHONE HCL 0.5 MG/0.5 ML SYRINGE IV PRN (15:24)
[2025-05-16] MEDS: HYDROmorphone 2 MG TAB PO ONE (17:37)
[2025-05-16 18:04] VITALS: O2SAT 99
[2025-05-16 18:06] VITALS: BP 133/65; TEMP 97.4
[2025-05-21] MEDS ORDERED: DILA8TAB5 PO (08:22)
== END 2025-05-16 18:21 | disposition home or self-care (01) ==
LOC: M ED 09:37 → EDBD 09:37 → M ED 18:21
DX: K27.9 Peptic ulcer, site unspecified, unspecified as acute or chronic, without hemorrhage or perforation (principal); K56.600 Partial intestinal obstruction, unspecified as to cause; I25.2 Old myocardial infarction; F41.9 Anxiety disorder, unspecified; F32.A Depression, unspecified; Z88.2 Allergy status to sulfonamides; Z88.6 Allergy status to analgesic agent; Z88.8 Allergy status to other drugs, medicaments and biological substances; Z79.899 Other long term (current) drug therapy; Z79.810 Long term (current) use of selective estrogen receptor modulators (SERMs)
CPT/HCPCS: 71045; 74177; 80047; 80053; 82248; 83605; 83690; 85014; 85018; 85025; 85610; 85730; 86850; 86900; 86901; 87507; 93005; 96365; 96366; 96375; 99285; J1171; J2405; J2470; Q9963; Q9967

== ENCOUNTER → 2025-05-21 | Outpatient (CLI) | payer MEDICARE ==
[~2025-05-21] MED LIST changes: +MULT-40 PO; +POTA20PW PO; +ZOLO25TA PO
== END ==
LOC: M PAL 11:05
PROVIDERS: ATTEND Physician Assistant
DX: Z51.5 Encounter for palliative care (principal); Z66 Do not resuscitate; C50.911 Malignant neoplasm of unspecified site of right female breast; C79.51 Secondary malignant neoplasm of bone; Z79.891 Long term (current) use of opiate analgesic; Z88.6 Allergy status to analgesic agent; Z91.030 Bee allergy status; Z88.2 Allergy status to sulfonamides; Z88.5 Allergy status to narcotic agent; Z79.83 Long term (current) use of bisphosphonates

== ENCOUNTER → 2025-05-29 | Outpatient (CLI) | payer MEDICARE ==
[~2025-05-29] VITALS: Ht 157.5 cm; Wt 59.6 kg
[2025-05-29 09:30] VITALS: BP 157/96; O2SAT 98
== END ==
LOC: M PAL 09:20
PROVIDERS: ATTEND Physician Assistant
DX: Z51.5 Encounter for palliative care (principal); Z66 Do not resuscitate; C50.012 Malignant neoplasm of nipple and areola, left female breast; Z79.51 Long term (current) use of inhaled steroids; Z79.891 Long term (current) use of opiate analgesic; Z88.6 Allergy status to analgesic agent; Z88.2 Allergy status to sulfonamides; Z91.030 Bee allergy status; Z91.041 Radiographic dye allergy status; Z79.83 Long term (current) use of bisphosphonates

== ENCOUNTER → 2025-06-12 | Outpatient (CLI) | payer MEDICARE | LOC: M PAL 09:43 | PROVIDERS: ATTEND Physician Assistant | DX: Z51.5 Encounter for palliative care (principal); Z66 Do not resuscitate; C50.012 Malignant neoplasm of nipple and areola, left female breast; C79.51 Secondary malignant neoplasm of bone; Z79.891 Long term (current) use of opiate analgesic; Z91.030 Bee allergy status; Z91.041 Radiographic dye allergy status; Z88.6 Allergy status to analgesic agent; Z88.5 Allergy status to narcotic agent; Z88.2 Allergy status to sulfonamides; Z88.1 Allergy status to other antibiotic agents; Z79.899 Other long term (current) drug therapy; Z79.83 Long term (current) use of bisphosphonates ==